=== PATIENT | female | born 1960 | race Caucasian/White ===

== ENCOUNTER → 2018-09-08 | Outpatient (CLI) | payer OTHER, SELFPAY ==
[2018-09-08 10:49] LABS: Absolute Lymphocyte Count 2.41 X10^3/uL (0.83-4.51); Absolute Neutrophil Count 3.7 X10^3/uL (2.0-7.7); Basophil# 0.04 X10^3/uL; Basophil% 0.6 % (0-1); Eosinophil# 0.15 X10^3/uL; Eosinophils% 2.2 % (0-5); Hematocrit 42.5 % (37-47); Hemoglobin 14.4 g/dL (12.0-15.0); Lymphocyte # 2.41 X10^3/ul (4.0); Lymphocyte % 34.9 % (19-41); Mean Corp Hgb Conc 33.9 g/dL (32-36); Mean Corpuscular Hgb 32.4 pg (27.0-32.0); Mean Corpuscular Volume 95.5 fL (81-99); Mean Platelet Vol. 11.1 fl (6.2-12.0); Monocyte# 0.59 X10^3/uL; Monocyte% 8.5 % (0-10); NRBC Flagged by Analyzer 0 % (0-5); Neutrophil # 3.71 X10^3/uL (2.7-7.7); Neutrophil % 53.7 % (47-70); Platelet Count 233 K/mm3 (150-450); RBC Distribution Width CV 12.1 % (11.6-14.6); RBC Distribution Width SD 42.5 fl (35.1-43.9); Red Blood Count 4.45 M/mm3 (4.2-5.4); White Blood Count 6.9 K/mm3 (4.4-11.0)
[2018-09-08 11:22] LABS: ALB/GLOB Ratio 1.5 RATIO (0.9-2.4); AST(SGOT) 12 U/L (15-37); Alanine Aminotransfer ALT/SGPT 19 U/L (13-56); Albumin, Serum 4.1 g/dL (3.2-5.0); Alkaline Phosphatase 64 U/L (45-117); Anion Gap 7 (5-15); BUN 16 mg/dL (7-18); BUN/Creat Ratio 17.3 RATIO (10-20); Calcium,Total 9.5 mg/dL (8.5-10.1); Chloride 104 mmol/L (98-107); Creatinine, Serum 0.92 mg/dL (0.55-1.02); EST Glomerular Filtration Rate 66 mL/min (>60); Est Glom Filt Rate - Afr Amer 80 mL/min (>60); Globulin 2.7 g/dL (2.2-4.2); Glucose 97 mg/dL (74-106); Potassium 4.3 mmol/L (3.5-5.1); Protein, Total 6.8 g/dL (6.4-8.2); Sodium Level 140 mmol/L (136-145)
== END | disposition home or self-care (01) ==
LOC: LAB 10:00
PROVIDERS: Family Provider Physician Assistant; PCP Physician Assistant; Referring Provider Internal Medicine Rheumatology; Visit Provider Internal Medicine Rheumatology
DX: M06.00 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 rheumatoid factor, unspecified site (principal); M79.7 Fibromyalgia; Z79.899 Other long term (current) drug therapy
CPT/HCPCS: 36415; 80053; 85025

== ENCOUNTER → 2018-12-04 09:41 | Outpatient (CLI) | payer OTHER, SELFPAY ==
[2018-12-04 10:12] LABS: Absolute Lymphocyte Count 1.76 X10^3/uL (0.83-4.51); Absolute Neutrophil Count 2.8 X10^3/uL (2.0-7.7); Basophil# 0.05 X10^3/uL; Basophil% 0.9 % (0-1); Eosinophil# 0.17 X10^3/uL; Eosinophils% 3.2 % (0-5); Hematocrit 45.5 % (37-47); Hemoglobin 15.3 g/dL (12.0-15.0); Lymphocyte # 1.76 X10^3/ul (4.0); Lymphocyte % 33.1 % (19-41); Mean Corp Hgb Conc 33.6 g/dL (32-36); Mean Corpuscular Hgb 31.9 pg (27.0-32.0); Mean Platelet Vol. 10.3 fl (6.2-12.0); Monocyte# 0.53 X10^3/uL; NRBC Flagged by Analyzer 0 % (0-5); Neutrophil # 2.79 X10^3/uL (2.7-7.7); Neutrophil % 52.6 % (47-70); Platelet Count 239 K/mm3 (150-450); RBC Distribution Width SD 42.1 fl (35.1-43.9); Red Blood Count 4.79 M/mm3 (4.2-5.4); White Blood Count 5.3 K/mm3 (4.4-11.0)
[2018-12-04 10:55] LABS: ALB/GLOB Ratio 1.6 RATIO (0.9-2.4); AST(SGOT) 13 U/L (15-37); Alanine Aminotransfer ALT/SGPT 14 U/L (13-56); Albumin, Serum 4.2 g/dL (3.2-5.0); Alkaline Phosphatase 72 U/L (45-117); Anion Gap 7 (5-15); BUN 10 mg/dL (7-18); BUN/Creat Ratio 10.3 RATIO (10-20); Calcium,Total 9.1 mg/dL (8.5-10.1); Chloride 106 mmol/L (98-107); Creatinine, Serum 0.97 mg/dL (0.55-1.02); EST Glomerular Filtration Rate 63 mL/min (>60); Est Glom Filt Rate - Afr Amer 76 mL/min (>60); Globulin 2.7 g/dL (2.2-4.2); Glucose 103 mg/dL (74-106); Potassium 4.1 mmol/L (3.5-5.1); Protein, Total 6.9 g/dL (6.4-8.2); Sodium Level 142 mmol/L (136-145)
== END ==
PROVIDERS: Family Provider Physician Assistant; PCP Physician Assistant; Referring Provider Internal Medicine Rheumatology; Visit Provider Internal Medicine Rheumatology
DX: M06.00 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 rheumatoid factor, unspecified site (principal); M79.7 Fibromyalgia; M18.11 Unilateral primary osteoarthritis of first carpometacarpal joint, right hand; Z79.899 Other long term (current) drug therapy
CPT/HCPCS: 36415; 80053; 85025

== ENCOUNTER → 2019-06-26 10:36 | Outpatient (CLI) | payer OTHER, SELFPAY ==
[2019-06-26 10:55] LABS: Absolute Lymphocyte Count 1.45 X10^3/uL (0.83-4.51); Absolute Neutrophil Count 2.7 X10^3/uL (2.0-7.7); Basophil# 0.05 X10^3/uL; Eosinophil# 0.12 X10^3/uL; Eosinophils% 2.5 % (0-5); Hematocrit 42.9 % (37-47); Hemoglobin 14.3 g/dL (12.0-15.0); Lymphocyte # 1.45 X10^3/ul (4.0); Lymphocyte % 30.2 % (19-41); Mean Corp Hgb Conc 33.3 g/dL (32-36); Mean Corpuscular Hgb 32.2 pg (27.0-32.0); Mean Corpuscular Volume 96.6 fL (81-99); Mean Platelet Vol. 10.4 fl (6.2-12.0); Monocyte# 0.45 X10^3/uL; Monocyte% 9.4 % (0-10); NRBC Flagged by Analyzer 0 % (0-5); Neutrophil # 2.72 X10^3/uL (2.7-7.7); Neutrophil % 56.7 % (47-70); Platelet Count 221 K/mm3 (150-450); RBC Distribution Width CV 12.6 % (11.6-14.6); RBC Distribution Width SD 44.7 fl (35.1-43.9); Red Blood Count 4.44 M/mm3 (4.2-5.4); White Blood Count 4.8 K/mm3 (4.4-11.0)
[2019-06-26 11:09] LABS: ALB/GLOB Ratio 1.6 RATIO (0.9-2.4); AST(SGOT) 12 U/L (15-37); Alanine Aminotransfer ALT/SGPT 18 U/L (13-56); Albumin, Serum 4.4 g/dL (3.2-5.0); Alkaline Phosphatase 77 U/L (45-117); Anion Gap 3 (5-15); BUN 10 mg/dL (7-18); BUN/Creat Ratio 10.8 RATIO (10-20); Calcium,Total 9.4 mg/dL (8.5-10.1); Chloride 109 mmol/L (98-107); Creatinine, Serum 0.93 mg/dL (0.55-1.02); EST Glomerular Filtration Rate 66 mL/min (>60); Est Glom Filt Rate - Afr Amer 80 mL/min (>60); Globulin 2.8 g/dL (2.2-4.2); Glucose 105 mg/dL (74-106); Potassium 4.4 mmol/L (3.5-5.1); Protein, Total 7.2 g/dL (6.4-8.2); Sodium Level 140 mmol/L (136-145)
== END ==
PROVIDERS: Referring Provider Internal Medicine Rheumatology; Visit Provider Internal Medicine Rheumatology
DX: M06.00 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 rheumatoid factor, unspecified site (principal); M79.7 Fibromyalgia; M18.11 Unilateral primary osteoarthritis of first carpometacarpal joint, right hand; Z79.899 Other long term (current) drug therapy
CPT/HCPCS: 36415; 80053; 85025

== ENCOUNTER → 2019-09-24 11:44 | Outpatient (CLI) | payer OTHER, SELFPAY ==
[2019-09-24 12:19] LABS: Absolute Lymphocyte Count 1.78 X10^3/uL (0.83-4.51); Absolute Neutrophil Count 3.1 X10^3/uL (2.0-7.7); Basophil# 0.04 X10^3/uL; Basophil% 0.7 % (0-1); Eosinophil# 0.14 X10^3/uL; Eosinophils% 2.6 % (0-5); Hematocrit 41.3 % (37-47); Hemoglobin 14.3 g/dL (12.0-15.0); Lymphocyte # 1.78 X10^3/ul (4.0); Lymphocyte % 32.5 % (19-41); Mean Corp Hgb Conc 34.6 g/dL (32-36); Mean Corpuscular Hgb 33.3 pg (27.0-32.0); Mean Platelet Vol. 10.4 fl (6.2-12.0); Monocyte# 0.39 X10^3/uL; Monocyte% 7.1 % (0-10); NRBC Flagged by Analyzer 0 % (0-5); Neutrophil % 56.7 % (47-70); Platelet Count 248 K/mm3 (150-450); RBC Distribution Width SD 42.1 fl (35.1-43.9); White Blood Count 5.5 K/mm3 (4.4-11.0)
[2019-09-24 12:51] LABS: ALB/GLOB Ratio 1.4 RATIO (0.9-2.4); AST(SGOT) 12 U/L (15-37); Alanine Aminotransfer ALT/SGPT 16 U/L (13-56); Albumin, Serum 3.9 g/dL (3.2-5.0); Alkaline Phosphatase 74 U/L (45-117); Anion Gap 1 (5-15); BUN 12 mg/dL (7-18); BUN/Creat Ratio 12.7 RATIO (10-20); Calcium,Total 8.9 mg/dL (8.5-10.1); Chloride 105 mmol/L (98-107); Creatinine, Serum 0.94 mg/dL (0.55-1.02); EST Glomerular Filtration Rate 65 mL/min (>60); Est Glom Filt Rate - Afr Amer 78 mL/min (>60); Globulin 2.8 g/dL (2.2-4.2); Glucose 120 mg/dL (74-106); Protein, Total 6.7 g/dL (6.4-8.2); Sodium Level 137 mmol/L (136-145)
== END ==
PROVIDERS: Referring Provider Internal Medicine Rheumatology; Visit Provider Internal Medicine Rheumatology
DX: M06.00 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 rheumatoid factor, unspecified site (principal); M79.7 Fibromyalgia; M18.11 Unilateral primary osteoarthritis of first carpometacarpal joint, right hand; Z79.899 Other long term (current) drug therapy
CPT/HCPCS: 36415; 80053; 85025

== ENCOUNTER → 2019-12-21 13:24 | Outpatient (CLI) | payer OTHER, SELFPAY ==
[2019-12-21 13:56] LABS: Absolute Lymphocyte Count 1.85 X10^3/uL (0.83-4.51); Absolute Neutrophil Count 3.4 X10^3/uL (2.0-7.7); Basophil# 0.06 X10^3/uL; Eosinophil# 0.15 X10^3/uL; Eosinophils% 2.5 % (0-5); Hematocrit 42.8 % (37-47); Hemoglobin 14.4 g/dL (12.0-15.0); Lymphocyte # 1.85 X10^3/ul (4.0); Mean Corp Hgb Conc 33.6 g/dL (32-36); Mean Corpuscular Hgb 31.9 pg (27.0-32.0); Mean Corpuscular Volume 94.7 fL (81-99); Mean Platelet Vol. 10.3 fl (6.2-12.0); Monocyte% 8.4 % (0-10); NRBC Flagged by Analyzer 0 % (0-5); Neutrophil # 3.38 X10^3/uL (2.7-7.7); Neutrophil % 56.8 % (47-70); Platelet Count 238 K/mm3 (150-450); RBC Distribution Width CV 12.4 % (11.6-14.6); RBC Distribution Width SD 43.4 fl (35.1-43.9); Red Blood Count 4.52 M/mm3 (4.2-5.4)
[2019-12-21 14:22] LABS: ALB/GLOB Ratio 1.4 RATIO (0.9-2.4); AST(SGOT) 10 U/L (15-37); Alanine Aminotransfer ALT/SGPT 14 U/L (13-56); Albumin, Serum 3.9 g/dL (3.2-5.0); Alkaline Phosphatase 76 U/L (45-117); Anion Gap 7 (5-15); BUN 14 mg/dL (7-18); BUN/Creat Ratio 13.9 RATIO (10-20); Calcium,Total 9.3 mg/dL (8.5-10.1); Chloride 106 mmol/L (98-107); Creatinine, Serum 1.01 mg/dL (0.55-1.02); EST Glomerular Filtration Rate 60 mL/min (>60); Est Glom Filt Rate - Afr Amer 72 mL/min (>60); Globulin 2.8 g/dL (2.2-4.2); Glucose 93 mg/dL (74-106); Potassium 4.1 mmol/L (3.5-5.1); Protein, Total 6.7 g/dL (6.4-8.2); Sodium Level 142 mmol/L (136-145)
== END ==
PROVIDERS: Referring Provider Internal Medicine Rheumatology; Visit Provider Internal Medicine Rheumatology
DX: M06.00 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 rheumatoid factor, unspecified site (principal); M79.7 Fibromyalgia; M18.11 Unilateral primary osteoarthritis of first carpometacarpal joint, right hand; Z79.899 Other long term (current) drug therapy
CPT/HCPCS: 36415; 80053; 85025

== ENCOUNTER → 2020-06-15 11:46 | Outpatient (CLI) | payer OTHER, SELFPAY ==
[2020-06-15 12:41] LABS: Absolute Lymphocyte Count 2.02 X10^3/uL (0.83-4.51); Absolute Neutrophil Count 3.4 X10^3/uL (2.0-7.7); Basophil# 0.03 X10^3/uL; Basophil% 0.5 % (0-1); Eosinophil# 0.19 X10^3/uL; Eosinophils% 3.1 % (0-5); Hematocrit 43.8 % (37-47); Hemoglobin 14.1 g/dL (12.0-15.0); Lymphocyte # 2.02 X10^3/ul (0.83-4.51); Lymphocyte % 32.5 % (19-41); Mean Corp Hgb Conc 32.2 g/dL (32-36); Mean Corpuscular Hgb 31.5 pg (27.0-32.0); Mean Corpuscular Volume 97.8 fL (81-99); Mean Platelet Vol. 10.7 fl (6.2-12.0); Monocyte# 0.56 X10^3/uL; NRBC Flagged by Analyzer 0 % (0-5); Neutrophil % 54.7 % (47-70); Platelet Count 250 K/mm3 (150-450); RBC Distribution Width CV 12.1 % (11.6-14.6); RBC Distribution Width SD 43.8 fl (35.1-43.9); Red Blood Count 4.48 M/mm3 (4.2-5.4); White Blood Count 6.2 K/mm3 (4.4-11.0)
[2020-06-15 13:17] LABS: ALB/GLOB Ratio 1.7 RATIO (0.9-2.4); AST(SGOT) 12 U/L (15-37); Alanine Aminotransfer ALT/SGPT 17 U/L (13-56); Albumin, Serum 4.3 g/dL (3.2-5.0); Alkaline Phosphatase 73 U/L (45-117); Anion Gap 4 (5-15); BUN 14 mg/dL (7-18); BUN/Creat Ratio 16.3 RATIO (10-20); Calcium,Total 9.3 mg/dL (8.5-10.1); Chloride 107 mmol/L (98-107); Creatinine, Serum 0.86 mg/dL (0.55-1.02); EST Glomerular Filtration Rate 72 mL/min (>60); Est Glom Filt Rate - Afr Amer 87 mL/min (>60); Globulin 2.6 g/dL (2.2-4.2); Glucose 102 mg/dL (74-106); Potassium 4.1 mmol/L (3.5-5.1); Protein, Total 6.9 g/dL (6.4-8.2); Sodium Level 140 mmol/L (136-145)
== END ==
PROVIDERS: Referring Provider Internal Medicine Rheumatology; Visit Provider Internal Medicine Rheumatology
DX: M06.00 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 rheumatoid factor, unspecified site (principal); M79.7 Fibromyalgia; M18.11 Unilateral primary osteoarthritis of first carpometacarpal joint, right hand; M47.897 Other spondylosis, lumbosacral region; Z79.899 Other long term (current) drug therapy
CPT/HCPCS: 36415; 80053; 85025

== ENCOUNTER → 2020-09-06 12:41 | Outpatient (CLI) | payer OTHER, SELFPAY ==
[2020-09-06 13:24] LABS: Absolute Lymphocyte Count 1.97 X10^3/uL (0.83-4.51); Absolute Neutrophil Count 2.3 X10^3/uL (2.0-7.7); Basophil# 0.05 X10^3/uL; Eosinophil# 0.13 X10^3/uL; Eosinophils% 2.7 % (0-5); Hematocrit 41.2 % (37-47); Hemoglobin 13.8 g/dL (12.0-15.0); Lymphocyte # 1.97 X10^3/ul (0.83-4.51); Lymphocyte % 40.6 % (19-41); Mean Corp Hgb Conc 33.5 g/dL (32-36); Mean Corpuscular Volume 95.6 fL (81-99); Mean Platelet Vol. 10.8 fl (6.2-12.0); Monocyte# 0.39 X10^3/uL; NRBC Flagged by Analyzer 0 % (0-5); Neutrophil # 2.31 X10^3/uL (2.7-7.7); Neutrophil % 47.7 % (47-70); Platelet Count 235 K/mm3 (150-450); RBC Distribution Width CV 12.4 % (11.6-14.6); RBC Distribution Width SD 43.6 fl (35.1-43.9); Red Blood Count 4.31 M/mm3 (4.2-5.4); White Blood Count 4.9 K/mm3 (4.4-11.0)
[2020-09-06 13:55] LABS: ALB/GLOB Ratio 1.5 RATIO (0.9-2.4); AST(SGOT) 13 U/L (15-37); Alanine Aminotransfer ALT/SGPT 14 U/L (13-56); Alkaline Phosphatase 70 U/L (45-117); Anion Gap 0 (5-15); BUN 15 mg/dL (7-18); BUN/Creat Ratio 16.5 RATIO (10-20); Calcium,Total 8.8 mg/dL (8.5-10.1); Chloride 108 mmol/L (98-107); Creatinine, Serum 0.91 mg/dL (0.55-1.02); EST Glomerular Filtration Rate 67 mL/min (>60); Est Glom Filt Rate - Afr Amer 81 mL/min (>60); Globulin 2.6 g/dL (2.2-4.2); Glucose 91 mg/dL (74-106); Potassium 4.3 mmol/L (3.5-5.1); Protein, Total 6.6 g/dL (6.4-8.2); Sodium Level 138 mmol/L (136-145)
== END ==
PROVIDERS: Referring Provider Internal Medicine Rheumatology; Visit Provider Internal Medicine Rheumatology
DX: M06.00 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 rheumatoid factor, unspecified site (principal); M79.7 Fibromyalgia; M18.11 Unilateral primary osteoarthritis of first carpometacarpal joint, right hand; M47.897 Other spondylosis, lumbosacral region; Z79.899 Other long term (current) drug therapy
CPT/HCPCS: 36415; 80053; 85025

== ENCOUNTER → 2020-12-04 12:55 | Outpatient (CLI) | payer OTHER, SELFPAY ==
[2020-12-04 13:50] LABS: Absolute Neutrophil Count 2.9 X10^3/uL (2.0-7.7); Basophil# 0.05 X10^3/uL; Basophil% 0.9 % (0-1); Eosinophil# 0.15 X10^3/uL; Eosinophils% 2.7 % (0-5); Hematocrit 39.9 % (37-47); Hemoglobin 13.6 g/dL (12.0-15.0); Lymphocyte % 37.3 % (19-41); Mean Corp Hgb Conc 34.1 g/dL (32-36); Mean Corpuscular Hgb 32.8 pg (27.0-32.0); Mean Corpuscular Volume 96.1 fL (81-99); Mean Platelet Vol. 10.1 fl (6.2-12.0); Monocyte# 0.46 X10^3/uL; Monocyte% 8.2 % (0-10); NRBC Flagged by Analyzer 0 % (0-5); Neutrophil # 2.85 X10^3/uL (2.7-7.7); Neutrophil % 50.5 % (47-70); Platelet Count 266 K/mm3 (150-450); RBC Distribution Width CV 12.9 % (11.6-14.6); RBC Distribution Width SD 45.9 fl (35.1-43.9); Red Blood Count 4.15 M/mm3 (4.2-5.4); White Blood Count 5.6 K/mm3 (4.4-11.0)
[2020-12-04 14:19] LABS: ALB/GLOB Ratio 1.3 RATIO (0.9-2.4); AST(SGOT) 11 U/L (15-37); Alanine Aminotransfer ALT/SGPT 18 U/L (13-56); Albumin, Serum 3.9 g/dL (3.2-5.0); Alkaline Phosphatase 72 U/L (45-117); Anion Gap 7 (5-15); BUN 11 mg/dL (7-18); BUN/Creat Ratio 13.3 RATIO (10-20); Calcium,Total 8.7 mg/dL (8.5-10.1); Chloride 104 mmol/L (98-107); Creatinine, Serum 0.83 mg/dL (0.55-1.02); EST Glomerular Filtration Rate 75 mL/min (>60); Est Glom Filt Rate - Afr Amer 91 mL/min (>60); Globulin 2.9 g/dL (2.2-4.2); Glucose 82 mg/dL (74-106); Potassium 3.8 mmol/L (3.5-5.1); Protein, Total 6.8 g/dL (6.4-8.2); Sodium Level 139 mmol/L (136-145)
== END ==
PROVIDERS: Referring Provider Internal Medicine Rheumatology; Visit Provider Internal Medicine Rheumatology
DX: M06.00 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 rheumatoid factor, unspecified site (principal); M79.7 Fibromyalgia; M18.11 Unilateral primary osteoarthritis of first carpometacarpal joint, right hand; M47.897 Other spondylosis, lumbosacral region; Z79.899 Other long term (current) drug therapy
CPT/HCPCS: 36415; 80053; 85025

== ENCOUNTER → 2021-06-14 | Outpatient (CLI) | payer OTHER, SELFPAY ==
[2021-06-14 11:35] LABS: Absolute Lymphocyte Count 1.89 X10^3/uL (0.83-4.51); Absolute Neutrophil Count 2.2 X10^3/uL (2.0-7.7); Basophil# 0.04 X10^3/uL; Basophil% 0.8 % (0-1); Eosinophil# 0.14 X10^3/uL; Eosinophils% 2.9 % (0-5); Hematocrit 43.7 % (37-47); Hemoglobin 14.9 g/dL (12.0-15.0); Lymphocyte # 1.89 X10^3/ul (0.83-4.51); Lymphocyte % 39.1 % (19-41); Mean Corp Hgb Conc 34.1 g/dL (32-36); Mean Corpuscular Hgb 33.3 pg (27.0-32.0); Mean Corpuscular Volume 97.5 fL (81-99); Mean Platelet Vol. 10.6 fl (6.2-12.0); Monocyte# 0.52 X10^3/uL; Monocyte% 10.8 % (0-10); NRBC Flagged by Analyzer 0 % (0-5); Neutrophil # 2.23 X10^3/uL (2.7-7.7); Neutrophil % 46.2 % (47-70); Platelet Count 263 K/mm3 (150-450); RBC Distribution Width SD 46.6 fl (35.1-43.9); Red Blood Count 4.48 M/mm3 (4.2-5.4); White Blood Count 4.8 K/mm3 (4.4-11.0)
[2021-06-14 12:14] LABS: ALB/GLOB Ratio 1.6 RATIO (0.9-2.4); AST(SGOT) 11 U/L (15-37); Alanine Aminotransfer ALT/SGPT 19 U/L (13-56); Albumin, Serum 4.2 g/dL (3.2-5.0); Alkaline Phosphatase 63 U/L (45-117); Anion Gap 5 (5-15); BUN 17 mg/dL (7-18); BUN/Creat Ratio 18.1 RATIO (10-20); Chloride 105 mmol/L (98-107); Creatinine, Serum 0.94 mg/dL (0.55-1.02); EST Glomerular Filtration Rate 65 mL/min (>60); Est Glom Filt Rate - Afr Amer 78 mL/min (>60); Globulin 2.6 g/dL (2.2-4.2); Glucose 102 mg/dL (74-106); Potassium 4.4 mmol/L (3.5-5.1); Protein, Total 6.8 g/dL (6.4-8.2); Sodium Level 140 mmol/L (136-145)
== END | disposition home or self-care (01) ==
LOC: LAB 10:47
PROVIDERS: Referring Provider Internal Medicine Rheumatology; Visit Provider Internal Medicine Rheumatology
DX: M06.00 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 rheumatoid factor, unspecified site (principal); M79.7 Fibromyalgia; M18.11 Unilateral primary osteoarthritis of first carpometacarpal joint, right hand; M47.897 Other spondylosis, lumbosacral region; Z79.899 Other long term (current) drug therapy
CPT/HCPCS: 36415; 80053; 85025

== ENCOUNTER → 2021-09-04 | Outpatient (CLI) | payer OTHER, SELFPAY ==
[2021-09-04 08:02] LABS: Absolute Lymphocyte Count 2.16 X10^3/uL (0.83-4.51); Absolute Neutrophil Count 3.1 X10^3/uL (2.0-7.7); Basophil# 0.04 X10^3/uL; Basophil% 0.7 % (0-1); Eosinophil# 0.24 X10^3/uL; Hematocrit 42.7 % (37-47); Hemoglobin 14.5 g/dL (12.0-15.0); Lymphocyte # 2.16 X10^3/ul (0.83-4.51); Lymphocyte % 35.9 % (19-41); Mean Platelet Vol. 9.9 fl (6.2-12.0); Monocyte# 0.45 X10^3/uL; Monocyte% 7.5 % (0-10); NRBC Flagged by Analyzer 0 % (0-5); Neutrophil # 3.12 X10^3/uL (2.7-7.7); Neutrophil % 51.7 % (47-70); Platelet Count 256 K/mm3 (150-450); RBC Distribution Width CV 12.1 % (11.6-14.6); RBC Distribution Width SD 43.3 fl (35.1-43.9)
[2021-09-04 08:27] LABS: ALB/GLOB Ratio 1.5 RATIO (0.9-2.4); AST(SGOT) 9 U/L (15-37); Alanine Aminotransfer ALT/SGPT 17 U/L (13-56); Albumin, Serum 3.8 g/dL (3.2-5.0); Alkaline Phosphatase 81 U/L (45-117); Anion Gap 5 (5-15); BUN 14 mg/dL (7-18); BUN/Creat Ratio 16.5 RATIO (10-20); Calcium,Total 8.8 mg/dL (8.5-10.1); Chloride 108 mmol/L (98-107); Creatinine, Serum 0.85 mg/dL (0.55-1.02); EST Glomerular Filtration Rate 73 mL/min (>60); Est Glom Filt Rate - Afr Amer 88 mL/min (>60); Globulin 2.6 g/dL (2.2-4.2); Glucose 119 mg/dL (74-106); Potassium 4.2 mmol/L (3.5-5.1); Protein, Total 6.4 g/dL (6.4-8.2); Sodium Level 142 mmol/L (136-145)
== END | disposition home or self-care (01) ==
LOC: LAB 07:49
PROVIDERS: Visit Provider Internal Medicine Rheumatology
DX: M06.00 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 rheumatoid factor, unspecified site (principal); M79.7 Fibromyalgia; M18.11 Unilateral primary osteoarthritis of first carpometacarpal joint, right hand; M47.897 Other spondylosis, lumbosacral region; Z79.899 Other long term (current) drug therapy
CPT/HCPCS: 36415; 80053; 85025

== ENCOUNTER → 2021-12-05 | Outpatient (CLI) | payer OTHER, SELFPAY ==
[2021-12-05 13:14] LABS: Absolute Lymphocyte Count 1.81 X10^3/uL (0.83-4.51); Absolute Neutrophil Count 3.7 X10^3/uL (2.0-7.7); Basophil# 0.05 X10^3/uL; Basophil% 0.8 % (0-1); Eosinophil# 0.16 X10^3/uL; Eosinophils% 2.6 % (0-5); Hematocrit 42.2 % (37-47); Hemoglobin 14.3 g/dL (12.0-15.0); Lymphocyte # 1.81 X10^3/ul (0.83-4.51); Lymphocyte % 28.9 % (19-41); Mean Corp Hgb Conc 33.9 g/dL (32-36); Mean Corpuscular Hgb 32.9 pg (27.0-32.0); Mean Corpuscular Volume 97.2 fL (81-99); Mean Platelet Vol. 10.3 fl (6.2-12.0); Monocyte# 0.54 X10^3/uL; Monocyte% 8.6 % (0-10); NRBC Flagged by Analyzer 0 % (0-5); Neutrophil # 3.69 X10^3/uL (2.7-7.7); Neutrophil % 58.8 % (47-70); Platelet Count 261 K/mm3 (150-450); RBC Distribution Width CV 12.6 % (11.6-14.6); RBC Distribution Width SD 45.3 fl (35.1-43.9); Red Blood Count 4.34 M/mm3 (4.2-5.4); White Blood Count 6.3 K/mm3 (4.4-11.0)
[2021-12-05 13:40] LABS: BUN 11 mg/dL (7-18); Creatinine, Serum 0.86 mg/dL (0.55-1.02); EST Glomerular Filtration Rate 71 mL/min (>60); Glucose 97 mg/dL (74-106)
[2021-12-05 13:41] LABS: ALB/GLOB Ratio 1.3 RATIO (0.9-2.4); AST(SGOT) 12 U/L (15-37); Alanine Aminotransfer ALT/SGPT 19 U/L (13-56); Alkaline Phosphatase 60 U/L (45-117); Anion Gap 3 (5-15); BUN/Creat Ratio 12.7 RATIO (10-20); Calcium,Total 9.4 mg/dL (8.5-10.1); Chloride 108 mmol/L (98-107); Est Glom Filt Rate - Afr Amer 86 mL/min (>60); Potassium 4.7 mmol/L (3.5-5.1); Sodium Level 140 mmol/L (136-145)
== END | disposition home or self-care (01) ==
LOC: LAB 11:08
PROVIDERS: Visit Provider Internal Medicine Rheumatology
DX: M06.00 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 rheumatoid factor, unspecified site (principal); M79.7 Fibromyalgia; M18.11 Unilateral primary osteoarthritis of first carpometacarpal joint, right hand; M47.897 Other spondylosis, lumbosacral region; Z79.899 Other long term (current) drug therapy
CPT/HCPCS: 36415; 80053; 85025

== ENCOUNTER → 2022-06-14 | Outpatient (CLI) | payer OTHER, SELFPAY ==
[2022-06-14 10:31] LABS: Absolute Lymphocyte Count 2.21 X10^3/uL (0.83-4.51); Absolute Neutrophil Count 2.1 X10^3/uL (2.0-7.7); Basophil# 0.04 X10^3/uL; Basophil% 0.8 % (0-1); Eosinophil# 0.16 X10^3/uL; Eosinophils% 3.3 % (0-5); Hematocrit 41.7 % (37-47); Hemoglobin 14.1 g/dL (12.0-15.0); Lymphocyte # 2.21 X10^3/ul (0.83-4.51); Lymphocyte % 45.1 % (19-41); Mean Corp Hgb Conc 33.8 g/dL (32-36); Mean Corpuscular Hgb 32.7 pg (27.0-32.0); Mean Corpuscular Volume 96.8 fL (81-99); Mean Platelet Vol. 10.3 fl (6.2-12.0); Monocyte# 0.39 X10^3/uL; NRBC Flagged by Analyzer 0 % (0-5); Neutrophil # 2.09 X10^3/uL (2.7-7.7); Neutrophil % 42.6 % (47-70); Platelet Count 263 K/mm3 (150-450); RBC Distribution Width CV 12.4 % (11.6-14.6); RBC Distribution Width SD 44.4 fl (35.1-43.9); Red Blood Count 4.31 M/mm3 (4.2-5.4); White Blood Count 4.9 K/mm3 (4.4-11.0)
[2022-06-14 10:56] LABS: ALB/GLOB Ratio 1.4 RATIO (0.9-2.4); AST(SGOT) 12 U/L (15-37); Alanine Aminotransfer ALT/SGPT 17 U/L (13-56); Albumin, Serum 3.8 g/dL (3.2-5.0); Alkaline Phosphatase 64 U/L (45-117); Anion Gap 2 (5-15); BUN 16 mg/dL (7-18); Calcium,Total 8.9 mg/dL (8.5-10.1); Chloride 112 mmol/L (98-107); Creatinine, Serum 0.89 mg/dL (0.55-1.02); EST Glomerular Filtration Rate 69 mL/min (>60); Est Glom Filt Rate - Afr Amer 83 mL/min (>60); Globulin 2.8 g/dL (2.2-4.2); Glucose 103 mg/dL (74-106); Potassium 3.9 mmol/L (3.5-5.1); Protein, Total 6.6 g/dL (6.4-8.2); Sodium Level 140 mmol/L (136-145)
== END | disposition home or self-care (01) ==
LOC: LAB 10:13
PROVIDERS: Referring Provider Internal Medicine Rheumatology; Visit Provider Internal Medicine Rheumatology
DX: M06.00 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 rheumatoid factor, unspecified site (principal); M79.7 Fibromyalgia; M18.11 Unilateral primary osteoarthritis of first carpometacarpal joint, right hand; M47.897 Other spondylosis, lumbosacral region; Z79.899 Other long term (current) drug therapy
CPT/HCPCS: 36415; 80053; 85025

== ENCOUNTER → 2022-09-09 | Outpatient (CLI) | payer OTHER, SELFPAY ==
[2022-09-09 11:04] LABS: Absolute Neutrophil Count 2.8 X10^3/uL (2.0-7.7); Basophil# 0.03 X10^3/uL; Basophil% 0.5 % (0-1); Eosinophil# 0.18 X10^3/uL; Eosinophils% 3.3 % (0-5); Hematocrit 44.9 % (37-47); Lymphocyte % 36.2 % (19-41); Mean Corp Hgb Conc 33.4 g/dL (32-36); Mean Corpuscular Hgb 32.3 pg (27.0-32.0); Mean Corpuscular Volume 96.6 fL (81-99); Mean Platelet Vol. 10.2 fl (6.2-12.0); Monocyte# 0.53 X10^3/uL; Monocyte% 9.6 % (0-10); NRBC Flagged by Analyzer 0 % (0-5); Neutrophil # 2.78 X10^3/uL (2.7-7.7); Neutrophil % 50.2 % (47-70); Platelet Count 252 K/mm3 (150-450); RBC Distribution Width CV 12.1 % (11.6-14.6); RBC Distribution Width SD 43.1 fl (35.1-43.9); Red Blood Count 4.65 M/mm3 (4.2-5.4); White Blood Count 5.5 K/mm3 (4.4-11.0)
[2022-09-09 11:42] LABS: ALB/GLOB Ratio 1.3 RATIO (0.9-2.4); AST(SGOT) 12 U/L (15-37); Alanine Aminotransfer ALT/SGPT 15 U/L (13-56); Albumin, Serum 3.7 g/dL (3.2-5.0); Alkaline Phosphatase 66 U/L (45-117); Anion Gap 1 (5-15); BUN 14 mg/dL (7-18); Calcium,Total 8.9 mg/dL (8.5-10.1); Chloride 110 mmol/L (98-107); Creatinine, Serum 0.93 mg/dL (0.55-1.02); EST Glomerular Filtration Rate 65 mL/min (>60); Est Glom Filt Rate - Afr Amer 78 mL/min (>60); Globulin 2.8 g/dL (2.2-4.2); Glucose 91 mg/dL (74-106); Potassium 4.7 mmol/L (3.5-5.1); Protein, Total 6.5 g/dL (6.4-8.2); Sodium Level 140 mmol/L (136-145)
== END | disposition home or self-care (01) ==
LOC: LAB 10:10
PROVIDERS: PCP Family Medicine; Referring Provider Internal Medicine Rheumatology; Visit Provider Internal Medicine Rheumatology
DX: M06.00 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 rheumatoid factor, unspecified site (principal); M79.7 Fibromyalgia; Z79.899 Other long term (current) drug therapy
CPT/HCPCS: 36415; 80053; 85025

== ENCOUNTER → 2022-10-30 | Outpatient (CLI) | payer OTHER, SELFPAY ==
--- NOTE | 2022-10-30 11:20 | BI_ITS ---
MAMMOGRAPHY - BILATERAL SCREENING REASON FOR EXAM: Female, 62 years old. Routine annual screening examination. PERTINENT HISTORY: Grandmother with breast cancer. Prior bilateral excisional breast biopsies. TECHNIQUE: Digital bilateral breast souleymane (3D mammographic acquisition) in the CC and MLO projections. 2-D mediolateral oblique (MLO) and craniocaudad (CC) views of both breasts were obtained. CAD: Full Field Digital Mammography with Computer Added Detection was performed. COMPARISON: Comparison is made with prior abdomen examination dated October 10, 2017. FINDINGS: Breast Composition: The breasts are heterogeneously dense, which may obscure small masses. There is a 5.3 mm x 5.3 mm bilobed nodular density in the upper lateral aspect of the right breast. This may represent an intramammary lymph node. Correlation with ultrasound is recommended. No other significant abnormalities are identified. BI/SCRN MAMM (CAD)W/SOULEYMANE BILAT IMPRESSION: 5.3 mm x 5.3 mm bilobed nodular density in the upper lateral aspect of the right breast as described. Correlation with ultrasound is recommended. ASSESSMENT CATEGORY: BIRADS Category 0: Incomplete. Need additional imaging evaluation. A letter regarding these results will be sent to the patient by the facility within 30 days. Approximately 10% of breast cancers are not detected by mammography. A normal mammogram should not delay biopsy of a clinically suspicious abnormality. [id number] Electronically Signed: Aaron Tijerina MD at 12:33 EDT ,
== END | disposition home or self-care (01) ==
LOC: OPBI 11:16
PROVIDERS: PCP Family Medicine; Referring Provider Family Medicine; Visit Provider Family Medicine
DX: Z12.31 Encounter for screening mammogram for malignant neoplasm of breast (principal)
CPT/HCPCS: 77063; 77067

== ENCOUNTER → 2022-11-01 | Outpatient (CLI) | payer OTHER, SELFPAY ==
--- NOTE | 2022-11-01 10:41 | US_ITS ---
STUDY: ULTRASOUND BREAST - RIGHT REASON FOR EXAM: Female, 62 years old. Abnormal screening mammogram. TECHNIQUE: Axial and longitudinal images of the RIGHT breast were performed with a high resolution ultrasound transducer. # OF IMAGES: 7 COMPARISON: Comparison is made with prior mammogram dated October 30, 2022. FINDINGS: RIGHT Breast: The upper outer quadrant of the breast was examined with ultrasound. The mammographic abnormality corresponds to a 9 mm x 6 mm x 4 mm benign-appearing lymph node. US/Breast Limited Unilateral IMPRESSION: The mammographic abnormality corresponds to a 9 mm x 6 mm x 4 mm benign-appearing lymph node. ASSESSMENT CATEGORY: BIRADS Category 2: Benign. A letter regarding these results will be sent to the patient by the facility within 30 days. Electronically Signed: Aaron Tijerina MD at 14:37 EDT ,
== END | disposition home or self-care (01) ==
PROVIDERS: PCP Family Medicine; Referring Provider Family Medicine; Visit Provider Family Medicine
DX: N63.10 Unspecified lump in the right breast, unspecified quadrant (principal)
CPT/HCPCS: 76642

== ENCOUNTER → 2022-12-10 | Outpatient (CLI) | payer OTHER, SELFPAY ==
[2022-12-10 09:51] LABS: Absolute Lymphocyte Count 2.21 X10^3/uL (0.83-4.51); Absolute Neutrophil Count 1.9 X10^3/uL (2.0-7.7); Basophil# 0.05 X10^3/uL; Eosinophil# 0.18 X10^3/uL; Eosinophils% 3.6 % (0-5); Hematocrit 42.8 % (37-47); Hemoglobin 14.3 g/dL (12.0-15.0); Lymphocyte # 2.21 X10^3/ul (0.83-4.51); Lymphocyte % 44.1 % (19-41); Mean Corp Hgb Conc 33.4 g/dL (32-36); Mean Corpuscular Hgb 32.1 pg (27.0-32.0); Mean Corpuscular Volume 96.2 fL (81-99); Mean Platelet Vol. 9.6 fl (6.2-12.0); Monocyte# 0.61 X10^3/uL; Monocyte% 12.2 % (0-10); NRBC Flagged by Analyzer 0 % (0-5); Neutrophil # 1.94 X10^3/uL (2.7-7.7); Neutrophil % 38.7 % (47-70); Platelet Count 302 K/mm3 (150-450); RBC Distribution Width CV 13.3 % (11.6-14.6); RBC Distribution Width SD 47.6 fl (35.1-43.9); Red Blood Count 4.45 M/mm3 (4.2-5.4)
[2022-12-10 11:43] LABS: ALB/GLOB Ratio 1.2 RATIO (0.9-2.4); AST(SGOT) 10 U/L (15-37); Alanine Aminotransfer ALT/SGPT 17 U/L (13-56); Albumin, Serum 3.7 g/dL (3.2-5.0); Alkaline Phosphatase 90 U/L (45-117); Anion Gap 4 (5-15); BUN 15 mg/dL (7-18); BUN/Creat Ratio 16.6 RATIO (10-20); Calcium,Total 8.8 mg/dL (8.5-10.1); Chloride 111 mmol/L (98-107); EST Glomerular Filtration Rate 67 mL/min (>60); Est Glom Filt Rate - Afr Amer 81 mL/min (>60); Glucose 99 mg/dL (74-106); Potassium 4.2 mmol/L (3.5-5.1); Protein, Total 6.7 g/dL (6.4-8.2); Sodium Level 142 mmol/L (136-145)
== END | disposition home or self-care (01) ==
LOC: LAB 08:21
PROVIDERS: PCP Family Medicine; Referring Provider Internal Medicine Rheumatology; Visit Provider Internal Medicine Rheumatology
DX: M06.00 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 rheumatoid factor, unspecified site (principal); Z79.899 Other long term (current) drug therapy
CPT/HCPCS: 36415; 80053; 85025

== ENCOUNTER → 2023-06-10 | Outpatient (CLI) | payer OTHER, SELFPAY ==
[2023-06-10 11:59] LABS: Absolute Lymphocyte Count 2.35 X10^3/uL (0.83-4.51); Absolute Neutrophil Count 3.1 X10^3/uL (2.0-7.7); Basophil# 0.04 X10^3/uL; Basophil% 0.6 % (0-1); Eosinophil# 0.15 X10^3/uL; Eosinophils% 2.4 % (0-5); Hematocrit 42.6 % (37-47); Hemoglobin 14.2 g/dL (12.0-15.0); Lymphocyte # 2.35 X10^3/ul (0.83-4.51); Lymphocyte % 37.4 % (19-41); Mean Corp Hgb Conc 33.3 g/dL (32-36); Mean Corpuscular Hgb 32.3 pg (27.0-32.0); Mean Corpuscular Volume 96.8 fL (81-99); Monocyte# 0.63 X10^3/uL; NRBC Flagged by Analyzer 0 % (0-5); Neutrophil % 49.3 % (47-70); Platelet Count 264 K/mm3 (150-450); RBC Distribution Width CV 12.6 % (11.6-14.6); RBC Distribution Width SD 44.7 fl (35.1-43.9); White Blood Count 6.3 K/mm3 (4.4-11.0)
[2023-06-10 13:06] LABS: ALB/GLOB Ratio 1.5 RATIO (0.9-2.4); AST(SGOT) 20 U/L (15-37); Alanine Aminotransfer ALT/SGPT 27 U/L (13-56); Albumin, Serum 4.1 g/dL (3.2-5.0); Alkaline Phosphatase 74 U/L (45-117); Anion Gap 2 (5-15); BUN 15 mg/dL (7-18); BUN/Creat Ratio 17.8 RATIO (10-20); Calcium,Total 9.1 mg/dL (8.5-10.1); Chloride 108 mmol/L (98-107); Creatinine, Serum 0.84 mg/dL (0.55-1.02); EST Glomerular Filtration Rate 73 mL/min (>60); Est Glom Filt Rate - Afr Amer 88 mL/min (>60); Globulin 2.8 g/dL (2.2-4.2); Glucose 105 mg/dL (74-106); Potassium 4.3 mmol/L (3.5-5.1); Protein, Total 6.9 g/dL (6.4-8.2); Sodium Level 139 mmol/L (136-145)
== END | disposition home or self-care (01) ==
LOC: LAB 11:23
PROVIDERS: PCP Family Medicine; Referring Provider Internal Medicine Rheumatology; Visit Provider Internal Medicine Rheumatology
DX: M06.00 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 rheumatoid factor, unspecified site (principal); M79.7 Fibromyalgia; M18.11 Unilateral primary osteoarthritis of first carpometacarpal joint, right hand; M47.897 Other spondylosis, lumbosacral region; Z79.899 Other long term (current) drug therapy
CPT/HCPCS: 36415; 80053; 85025

== ENCOUNTER 2023-09-10 12:24 | Outpatient (RCR) | payer OTHER, SELFPAY ==
[2023-09-10 13:24] LABS: Absolute Lymphocyte Count 2.81 X10^3/uL (0.83-4.51); Absolute Neutrophil Count 3.1 X10^3/uL (2.0-7.7); Basophil# 0.06 X10^3/uL; Basophil% 0.9 % (0-1); Eosinophil# 0.15 X10^3/uL; Eosinophils% 2.2 % (0-5); Hematocrit 42.6 % (37-47); Hemoglobin 14.3 g/dL (12.0-15.0); Lymphocyte # 2.81 X10^3/ul (0.83-4.51); Lymphocyte % 41.6 % (19-41); Mean Corp Hgb Conc 33.6 g/dL (32-36); Mean Corpuscular Hgb 31.6 pg (27.0-32.0); Mean Corpuscular Volume 94.2 fL (81-99); Mean Platelet Vol. 10.3 fl (6.2-12.0); Monocyte# 0.65 X10^3/uL; Monocyte% 9.6 % (0-10); NRBC Flagged by Analyzer 0 % (0-5); Neutrophil # 3.07 X10^3/uL (2.7-7.7); Neutrophil % 45.4 % (47-70); Platelet Count 280 K/mm3 (150-450); RBC Distribution Width CV 12.4 % (11.6-14.6); RBC Distribution Width SD 43.2 fl (35.1-43.9); Red Blood Count 4.52 M/mm3 (4.2-5.4); White Blood Count 6.8 K/mm3 (4.4-11.0)
[2023-09-10 14:01] LABS: ALB/GLOB Ratio 1.6 RATIO (0.9-2.4); AST(SGOT) 10 U/L (15-37); Alanine Aminotransfer ALT/SGPT 20 U/L (13-56); Albumin, Serum 4.1 g/dL (3.2-5.0); Alkaline Phosphatase 78 U/L (45-117); Anion Gap 6 (5-15); BUN 16 mg/dL (7-18); BUN/Creat Ratio 17.7 RATIO (10-20); Calcium,Total 9.1 mg/dL (8.5-10.1); Chloride 106 mmol/L (98-107); EST Glomerular Filtration Rate 67 mL/min (>60); Est Glom Filt Rate - Afr Amer 81 mL/min (>60); Globulin 2.6 g/dL (2.2-4.2); Glucose 95 mg/dL (74-106); Potassium 4.3 mmol/L (3.5-5.1); Protein, Total 6.7 g/dL (6.4-8.2); Sodium Level 139 mmol/L (136-145)
== END 2023-09-24 18:00 | disposition home or self-care (01) ==
LOC: LAB 12:24
PROVIDERS: Referring Provider Internal Medicine Rheumatology; Visit Provider Internal Medicine Rheumatology
DX: M06.041 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 rheumatoid factor, right hand (principal); Z79.899 Other long term (current) drug therapy; M79.7 Fibromyalgia; M18.11 Unilateral primary osteoarthritis of first carpometacarpal joint, right hand; M47.897 Other spondylosis, lumbosacral region
CPT/HCPCS: 36415; 80053; 85025

== ENCOUNTER → 2023-10-24 | Outpatient (CLI) | payer OTHER, SELFPAY ==
[2023-10-24 15:43] LABS: Vitamin D,25 Hydroxy 46.8 ng/mL
[2023-10-24 16:07] LABS: Follicle Stimulating Hormone 83.5 mIU/mL; Luteinizing Hormone 49.6 mIU/mL
[2023-10-27 01:06] LABS: PROGESTERONE <0.1 ng/mL (.)
[2023-10-30 21:07] LABS: Estrogen, Total, Serum 64 pg/mL (40-244)
== END | disposition home or self-care (01) ==
LOC: MFPLAB 10:55
PROVIDERS: PCP Family Medicine; Visit Provider Family Medicine
DX: R53.83 Other fatigue (principal); M06.9 Rheumatoid arthritis, unspecified; Z78.0 Asymptomatic menopausal state
CPT/HCPCS: 36415; 82306; 82672; 83001; 83002; 84144; 84443

== ENCOUNTER 2023-12-08 09:31 | Outpatient (RCR) | payer OTHER, SELFPAY ==
[2023-12-08 10:42] LABS: Basophil# 0.04 X10^3/uL; Eosinophil# 0.13 X10^3/uL; Eosinophils% 3.2 % (0-5); Hematocrit 41.8 % (37-47); Hemoglobin 13.9 g/dL (12.0-15.0); Lymphocyte % 34.6 % (19-41); Mean Corp Hgb Conc 33.3 g/dL (32-36); Mean Corpuscular Hgb 31.7 pg (27.0-32.0); Mean Corpuscular Volume 95.4 fL (81-99); Mean Platelet Vol. 10.4 fl (6.2-12.0); Monocyte# 0.48 X10^3/uL; Monocyte% 11.9 % (0-10); NRBC Flagged by Analyzer 0 % (0-5); Neutrophil # 1.99 X10^3/uL (2.7-7.7); Neutrophil % 49.1 % (47-70); Platelet Count 237 K/mm3 (150-450); RBC Distribution Width CV 12.7 % (11.6-14.6); RBC Distribution Width SD 45.1 fl (35.1-43.9); Red Blood Count 4.38 M/mm3 (4.2-5.4); White Blood Count 4.1 K/mm3 (4.4-11.0)
[2023-12-08 11:45] LABS: ALB/GLOB Ratio 1.5 RATIO (0.9-2.4); AST(SGOT) 9 U/L (15-37); Alanine Aminotransfer ALT/SGPT 18 U/L (13-56); Albumin, Serum 3.8 g/dL (3.2-5.0); Alkaline Phosphatase 63 U/L (45-117); Anion Gap 3 (5-15); BUN 12 mg/dL (7-18); BUN/Creat Ratio 13.2 RATIO (10-20); Chloride 108 mmol/L (98-107); Creatinine, Serum 0.91 mg/dL (0.55-1.02); EST Glomerular Filtration Rate 66 mL/min (>60); Est Glom Filt Rate - Afr Amer 80 mL/min (>60); Globulin 2.6 g/dL (2.2-4.2); Glucose 111 mg/dL (74-106); Potassium 4.3 mmol/L (3.5-5.1); Protein, Total 6.4 g/dL (6.4-8.2); Sodium Level 138 mmol/L (136-145)
== END 2023-12-08 18:00 | disposition home or self-care (01) ==
LOC: LAB 09:31
PROVIDERS: PCP Family Medicine; Referring Provider Internal Medicine Rheumatology; Visit Provider Internal Medicine Rheumatology
DX: M06.041 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 rheumatoid factor, right hand (principal); Z79.899 Other long term (current) drug therapy; M79.7 Fibromyalgia; M18.11 Unilateral primary osteoarthritis of first carpometacarpal joint, right hand
CPT/HCPCS: 36415; 80053; 85025

== ENCOUNTER 2024-06-15 10:19 | Outpatient (RCR) | payer OTHER, SELFPAY ==
[2024-06-15 10:44] LABS: Absolute Lymphocyte Count 2.22 X10^3/uL (0.83-4.51); Absolute Neutrophil Count 4.3 X10^3/uL (2.0-7.7); Basophil# 0.07 X10^3/uL; Eosinophil# 0.15 X10^3/uL; Eosinophils% 2.1 % (0-5); Hematocrit 43.2 % (37-47); Hemoglobin 15.2 g/dL (12.0-15.0); Lymphocyte # 2.22 X10^3/ul (0.83-4.51); Lymphocyte % 30.5 % (19-41); Mean Corp Hgb Conc 35.2 g/dL (32-36); Mean Corpuscular Volume 93.9 fL (81-99); Mean Platelet Vol. 9.8 fl (6.2-12.0); Monocyte# 0.53 X10^3/uL; Monocyte% 7.3 % (0-10); NRBC Flagged by Analyzer 0 % (0-5); Neutrophil # 4.29 X10^3/uL (2.7-7.7); Neutrophil % 58.7 % (47-70); Platelet Count 298 K/mm3 (150-450); RBC Distribution Width CV 12.7 % (11.6-14.6); RBC Distribution Width SD 43.5 fl (35.1-43.9); White Blood Count 7.3 K/mm3 (4.4-11.0)
[2024-06-15 11:47] LABS: ALB/GLOB Ratio 2.3 RATIO (0.9-2.4); AST(SGOT) 15 U/L (<=31); Alanine Aminotransfer ALT/SGPT 11 U/L (<=34); Albumin, Serum 4.6 g/dL (3.4-4.8); Alkaline Phosphatase 67 U/L (35-104); Anion Gap 10 (5-15); BUN 13 mg/dL (4-19); BUN/Creat Ratio 14.5 RATIO (10-20); Calcium,Total 9.4 mg/dL (7.6-11.0); Carbon Dioxide 24.8 mmol/L (21.0-32.0); Chloride 104 mmol/L (98-108); Creatinine, Serum 0.88 mg/dL (0.70-1.20); EST Glomerular Filtration Rate 73 (>60); Globulin 2.1 g/dL (2.2-4.2); Glucose 102 mg/dL (70-99); Potassium 4.9 mmol/L (3.3-5.1); Protein, Total 6.7 g/dL (5.9-8.4); Sodium Level 138 mmol/L (133-145); Total Bilirubin 0.41 mg/dL (0.00-1.30)
== END 2024-06-23 18:00 | disposition home or self-care (01) ==
LOC: LAB 10:19
PROVIDERS: PCP Family Medicine; Referring Provider Internal Medicine Rheumatology; Visit Provider Internal Medicine Rheumatology
DX: M06.041 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 rheumatoid factor, right hand (principal); Z79.899 Other long term (current) drug therapy; M79.7 Fibromyalgia; M18.11 Unilateral primary osteoarthritis of first carpometacarpal joint, right hand; M47.897 Other spondylosis, lumbosacral region
CPT/HCPCS: 36415; 80053; 85025

== ENCOUNTER → 2024-08-31 | Outpatient (CLI) | payer OTHER, SELFPAY ==
[2024-08-31 11:36] LABS: Hematocrit 42.1 % (37-47); Hemoglobin 14.6 g/dL (12.0-15.0); Immature Granulocytes Count 0.010 X10^3/uL (0.0-0.0); Mean Corp Hgb Conc 34.7 g/dL (32-36); Mean Corpuscular Volume 94.4 fL (81-99); Mean Platelet Vol. 10.8 fl (6.2-12.0); NRBC Flagged by Analyzer 0 % (0-5); Platelet Count 264 K/mm3 (150-450); RBC Distribution Width CV 12.3 % (11.6-14.6); RBC Distribution Width SD 43.0 fl (35.1-43.9); Red Blood Count 4.46 M/mm3 (4.2-5.4); White Blood Count 4.8 K/mm3 (4.4-11.0)
[2024-08-31 12:40] LABS: AST(SGOT) 17 U/L (<=31); Alanine Aminotransfer ALT/SGPT 13 U/L (<=34); Albumin, Serum 4.5 g/dL (3.4-4.8); Alkaline Phosphatase 62 U/L (35-104); Anion Gap 11 (5-15); BUN 14 mg/dL (4-19); BUN/Creat Ratio 14.9 RATIO (10-20); Calcium,Total 9.2 mg/dL (7.6-11.0); Carbon Dioxide 23.4 mmol/L (21.0-32.0); Chloride 105 mmol/L (98-108); Globulin 2.0 g/dL (2.2-4.2); Glucose 109 mg/dL (70-99); Potassium 4.3 mmol/L (3.3-5.1)
== END | disposition home or self-care (01) ==
PROVIDERS: PCP Family Medicine; Referring Provider Internal Medicine Rheumatology; Visit Provider Internal Medicine Rheumatology
DX: M06.041 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 rheumatoid factor, right hand (principal); M79.7 Fibromyalgia; M18.11 Unilateral primary osteoarthritis of first carpometacarpal joint, right hand; Z79.899 Other long term (current) drug therapy
CPT/HCPCS: 36415; 80053; 85025

== ENCOUNTER → 2024-09-09 | Outpatient (CLI) | payer OTHER, SELFPAY ==
--- NOTE | 2024-09-09 10:01 | BI_ITS ---
EXAM: SCRN MAMM (CAD)W/SOULEYMANE BILAT DATE: 09/09/2024 CLINICAL HISTORY: F, Age 64 y/o , ANNUAL EXAMINATION Grandmother with breast cancer. Prior bilateral excisional breast biopsies. TECHNIQUE: SCRN MAMM (CAD)W/SOULEYMANE BILAT COMPARISON: Prior exam(s) dated prior study dated October 30, 2022.. FINDINGS: TISSUE DENSITY: There are scattered areas of fibroglandular density. Bilateral Breast Mammographic Findings: No significant masses, calcifications or other abnormalities are identified. Stable 5.3 mm x 5.3 mm nodular density in the upper lateral aspect of the right breast. Prior sonogram demonstrated this to be a small cyst. No suspicious masses, areas of developing architectural distortion, or suspicious calcifications. There has been no significant interval change. BI/SCRN MAMM (CAD)W/SOULEYMANE BILAT IMPRESSION: Stable examination. OVERALL FINAL ASSESSMENT BI-RADS 2: BENIGN RECOMMENDATION: Routine annual follow-up in 1 Year A letter with findings and recommendations will be mailed to the patient. Reading Location: [place] [id number]
--- OUTSIDE RECORDS SUMMARY | 2024-09-09 18:43 | XMS RPT_ITS | CCD ---
Author Organization [facility] Care Team Providers Care Stripper Soft [employer]astic Name Role Phone ANNA MORENO Unavailable Unavailable ANNA MORENO Unavailable Unavailable ELIO ADAMS MD Admitting Unavailable ELIO ADAMS MD Attending Unavailable ELIO ADAMS MD Primary Care Unavailable YOHANNES SOSA Consulting Unavailable PROVIDER, UNKNOWN Consulting Unavailable ELIO ADAMS MD Admitting Unavailable ELIO ADAMS MD Attending Unavailable ELIO ADAMS MD Primary Care Unavailable YOHANNES SOSA Consulting Unavailable PROVIDER, UNKNOWN Consulting Unavailable ELIO ADAMS MD Admitting Unavailable ELIO ADAMS MD Attending Unavailable ELIO ADAMS MD Primary Care Unavailable YOHANNES SOSA Consulting Unavailable PROVIDER, UNKNOWN Consulting Unavailable ELIO ADAMS MD Admitting Unavailable ELIO ADAMS MD Attending Unavailable ELIO ADAMS MD Primary Care Unavailable YOHANNES SOSA Consulting Unavailable PROVIDER, UNKNOWN Consulting Unavailable PILAR RODRIGUEZ DO Primary Care Unavailab PILAR Fragoso DO Attending Unavailab DR ZAY Landaverde MD Consulting Unavailabl PILAR Cunha DO Primary Care Physician Angie Elio Referring Unavailable Tyrellanki Elio Attending Unavailable Mg, Chalon Primary Care Unavailable Vellanki, Elio Referring Unavailable Mg, Chalon Primary Care Unavailable Vellanki, Elio Attending Unavailable Vellanki, Elio Attending Unavailable Tyrellanki, Elio Referring Unavailable Care Physician, No Primary Primary Care Unava ilable Mg, Chalon Primary Care Unavailable Mg, Chalon Attending Unavailable Vellanki, Elio Referring Unavailable Vellanki, Elio Attending Unavailable Mg, Chalon Primary Care Unavailable Vellanki, Elio Referring Unavailable Vellanki, Elio Attending Unavailable Mg, Chalon Primary Care Unavailable Vellanki MD, Dr. Elio Attending Provider Angie HAYWOOD, Dr. Mcpherson Referring Provider Tamika Holliday MD Primary Care Provider [phone] Problems Active Problems Problem Classification Problem Date Documented Date Episodic/Chronic Osteoarthritis (2 sources) Unilateral primary osteoarthritis of first carpometacarpal joint, right hand; Translations: [Unilateral primary osteoarthritis of first carpometacarpal joint, right hand] Onset: 09-24-2023 Chronic Other aftercare (5 sources) Other fci (current) drug therapy; Translations: [Other fci (current) drug therapy] Onset: 02-03-2018 Episodic Other connective tissue disease (2 sources) Fibromyalgia; Translations: [Fibromyalgia] Onset: 09-24-2023 Episodic Other screening for suspected conditions (not mental disorders or infectious disease) (2 sources) Encounter for screening for malignant neoplasm of colon; Translations: [Encounter for screening for malignant neoplasm of colon] Onset: 06-24-2024 Episodic Rheumatoid arthritis and related disease (2 sources) 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 rheumatoid factor, right hand; Translations: [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 rheumatoid factor, right hand] Onset: 09-24-2023 Chronic Spondylosis; intervertebral disc disorders; other back problems (1 source) Other spondylosis, lumbosacral region; Translations: [Other spondylosis, lumbosacral region] Onset: 09-24-2023 Chronic Unclassified (1 source) Unknown / UNK(Unknown) Onset: 06-18-2017 Past or Other Problems Problem Classification Problem Date Documented Da te Episodic/Chronic Malaise and fatigue (1 source) Other fatigue; Translations: [Other fatigue] Onset: 11-05-2023 Episodic Results Test Name Value Interpretation Reference Range Facility Absolute lymphocyte countOrd ered By: Elio Adams on 08-31-2024 Lymphocytes Auto (Unsp spec) [#/Vol] 1.69 10*3/uL 0.83-4.51 [facility] Absolute neutrophil countOrd ered By: Elio Adams on 08-31-2024 Neutrophils (Bld) [#/Vol] 2.4 10*3/uL 2.0-7.7 [facility] Anion gap in Serum or Plasma Ordered By: Elio Adams on 08-31-2024 Anion gap [Moles/Vol] 11 mmol/L 5-15 [facility] Automated lymphocyte count a s percentage of total leukocytesOrdered By: Elio Adams on 08-31-2024 Lymphocytes/100 WBC Auto (Unsp spec) 35.4 % 19-41 [facility] BUN/creatinine ratioOrdered By: Elio Adams on 08-31-2024 Urea nitrogen/Creatinine [Mass ratio] 14.9 mg/mg 10-20 [facility] Basophil percentageOrdered B y: Elio Adams on 08-31-2024 Basophils/100 WBC (Bld) 1.3 % High 0-1 [facility] Bilirubin, totalOrdered By: Elioxochitl Adams on 08-31-2024 Bilirubin [Mass/Vol] 0.46 mg/dL 0.00-1.30 [facility] CBC W/Diff, Automatedon Absolute Lymph 1.69 X10 3/uL Normal 0.83-4.51 [facility] Comment on above: Performed By: #### L 500.4050, L100.0100 #### [facility] [address] [place], [address] Absolute Neut 2.4 X10 3/uL Normal 2.0-7.7 [facility] Comment on above: Performed By: #### L 500.4050, L100.0100 #### [facility] [address] [place], [address] Basophils/100 WBC (Bld) 1.3 % High 0-1 [facility] Comment on above: Performed By: #### L 500.4050, L100.0100 #### [facility] [address] [place], [address] Eosinophils/100 WBC (Bld) 3.6 % Normal 0-5 [facility] Comment on above: Performed By: #### L 500.4050, L100.0100 #### [facility] [address] [place], [address] Erythrocyte distribution width (RBC) [Ratio] 12.3 % Normal 11.6-14.6 [facility] Comment on above: Performed By: #### L 500.4050, L100.0100 #### [facility] [address] [place], [address] Hematocrit (Bld) [Volume fraction] 42.1 % Normal 37-47 [facility] Comment on above: Performed By: #### L 500.4050, L100.0100 #### [facility] [address] [place], [address] Hemoglobin (Bld) [Mass/Vol] 14.6 g/dL Normal 12.0-15.0 [facility] Comment on above: Performed By: #### L 500.4050, L100.0100 #### [facility] [address] [place], [address] IG% 0.200 Normal 0.0-0.9 [facility] Comment on above: Result Comment: IG% - Immature Granulocytes (promyelocytes, myelocytes and metamyelocytes) > 1% indicates that a LEFT SHIFT is Present. Performed By: #### L 500.4050, L100.0100 #### [facility] [address] [place], [address] Lymphocytes/100 WBC (Bld) 35.4 % Normal 19-41 [facility] Comment on above: Performed By: #### L 500.4050, L100.0100 #### [facility] [address] [place], [address] MCH (RBC) [Entitic mass] 32.7 pg High 27.0-32.0 [facility] Comment on above: Performed By: #### L 500.4050, L100.0100 #### [facility] [address] [place], [address] MCHC (RBC) [Mass/Vol] 34.7 g/dL Normal 32-36 [facility] Comment on above: Performed By: #### L 500.4050, L100.0100 #### [facility] [address] [place], [address] MCV (RBC) [Entitic vol] 94.4 fL Normal 81-99 [facility] Comment on above: Performed By: #### L 500.4050, L100.0100 #### [facility] [address] [place], [address] Monocytes/100 WBC (Bld) 9.4 % Normal 0-10 [facility] Comment on above: Performed By: #### L 500.4050, L100.0100 #### [facility] [address] [place], [address] Neutrophils/100 WBC (Bld) 50.1 % Normal 47-70 [facility] Comment on above: Performed By: #### L 500.4050, L100.0100 #### [facility] [address] [place], [address] Nucleated RBC (Bld) [#/Vol] 0 10*3/uL Normal 0-5 [facility] Comment on above: Performed By: #### L 500.4050, L100.0100 #### [facility] [address] [place], [address] Platelet mean volume (Bld) [Entitic vol] 10.8 fL Normal 6.2-12.0 [facility] Comment on above: Performed By: #### L 500.4050, L100.0100 #### [facility] [address] [place], [address] Platelets (Bld) [#/Vol] 264 10*3/uL Normal 150-450 [facility] Comment on above: Performed By: #### L 500.4050, L100.0100 #### [facility] [address] [place], [address] RBC (Bld) [#/Vol] 4.46 10*6/uL Normal 4.2-5.4 [facility] Comment on above: Performed By: #### L 500.4050, L100.0100 #### [facility] [address] [place], [address] RDW SD 43.0 fl Normal 35.1-43.9 [facility] Comment on above: Performed By: #### L 500.4050, L100.0100 #### [facility] [address] [place], [address] WBC (Bld) [#/Vol] 4.8 10*3/uL Normal 4.4-11.0 [facility] Comment on above: Performed By: #### L 500.4050, L100.0100 #### [facility] [address] [place], [address] Carbon dioxide, total [Moles /volume] in Central venous bloodOrdered By: Elio Adams on 08-31-2024 CO2 [Moles/Vol] 23.4 mmol/L 21.0-32.0 [facility] Chloride assayOrdered By: Cuong Adams on 08-31-2024 Chloride [Moles/Vol] 105 mmol/L 98-108 [facility] Comprehensive Metabolic Prof ilon 08-31-2024 Albumin [Mass/Vol] 4.5 g/dL Normal 3.4-4.8 [facility] Comment on above: Performed By: #### L 500.4050, L100.0100 #### [facility] [address] [place], [address] Albumin/Globulin [Mass ratio] 2.2 {ratio} Normal 0.9-2.4 [facility] Comment on above: Performed By: #### L 500.4050, L100.0100 #### [facility] [address] [place], [address] ALK PHOS 62 U/L Normal 35-104 [facility] Comment on above: Performed By: #### L 500.4050, L100.0100 #### [facility] [address] [place], [address] ALT [Catalytic activity/Vol] 13 U/L Normal <=34 [facility] Comment on above: Performed By: #### L 500.4050, L100.0100 #### [facility] [address] [place], [address] AST [Catalytic activity/Vol] 17 U/L Normal <=31 [facility] Comment on above: Performed By: #### L 500.4050, L100.0100 #### [facility] [address] [place], [address] Bilirubin [Mass/Vol] 0.46 mg/dL Normal 0.00-1.30 [facility] Comment on above: Performed By: #### L 500.4050, L100.0100 #### [facility] [address] [place], [address] BUN/CRE 14.9 RATIO Normal 10-20 [facility] Comment on above: Performed By: #### L 500.4050, L100.0100 #### [facility] [address] [place], [address] Calcium [Mass/Vol] 9.2 mg/dL Normal 7.6-11.0 [facility] Comment on above: Performed By: #### L 500.4050, L100.0100 #### [facility] [address] [place], [address] Chloride [Moles/Vol] 105 mmol/L Normal 98-108 [facility] Comment on above: Performed By: #### L 500.4050, L100.0100 #### [facility] [address] [place], [address] CO2 [Moles/Vol] 23.4 mmol/L Normal 21.0-32.0 [facility] Comment on above: Performed By: #### L 500.4050, L100.0100 #### [facility] [address] [place], [address] Creatinine [Mass/Vol] 0.91 mg/dL Normal 0.70-1.20 [facility] Comment on above: Performed By: #### L 500.4050, L100.0100 #### [facility] [address] [place], [address] GAP 11 Normal 5-15 [facility] Comment on above: Performed By: #### L 500.4050, L100.0100 #### [facility] [address] [place], [address] GFR/1.73 sq M.predicted among non-blacks MDRD (S/P/Bld) [Vol rate/Area] 71 mL/min/{1.73_m2} Normal >60 [facility] Comment on above: Result Comment: mL/m in/1.73m2 CKD-EPI Creatinine Equation (2020) Performed By: #### L 500.4050, L100.0100 #### [facility] [address] [place], [address] Globulin (S) [Mass/Vol] 2.0 g/dL Low 2.2-4.2 [facility] Comment on above: Performed By: #### L 500.4050, L100.0100 #### [facility] [address] [place], [address] Glucose [Mass/Vol] 109 mg/dL High 70-99 [facility] Comment on above: Performed By: #### L 500.4050, L100.0100 #### [facility] [address] [place], [address] Potassium [Moles/Vol] 4.3 mmol/L Normal 3.3-5.1 [facility] Comment on above: Performed By: #### L 500.4050, L100.0100 #### [facility] [address] [place], [address] Sodium [Moles/Vol] 139 mmol/L Normal 133-145 [facility] Comment on above: Performed By: #### L 500.4050, L100.0100 #### [facility] [address] [place], [address] T PROT 6.5 g/dL Normal 5.9-8.4 [facility] Comment on above: Performed By: #### L 500.4050, L100.0100 #### [facility] [address] [place], [address] Urea nitrogen [Mass/Vol] 14 mg/dL Normal 4-19 [facility] Comment on above: Performed By: #### L 500.4050, L100.0100 #### [facility] [address] [place], [address] Eosinophil percentageOrdered By: Elio Adams on 08-31-2024 Eosinophils/100 WBC (Bld) 3.6 % 0-5 [facility] Erythrocyte distribution wid th ratioOrdered By: Elio Adams on 08-31-2024 Erythrocyte distribution width (RBC) [Ratio] 12.3 % 11.6-14.6 [facility] Erythrocyte distribution wid th standard deviationOrdered By: Elio Adams on 08-31-2024 Erythrocyte distribution width (RBC) [Ratio] 43.0 fl 35.1-43.9 [facility] Glomerular filtration rate ( GFR) estimation/1.73 sq m using serum, plasma, or whole bOrdered By: Elio Adams on 08-31-2024 GFR/1.73 sq M.predicted among non-blacks MDRD (S/P/Bld) [Vol rate/Area] 71 mL/min/{1.73_m2} >60 [facility] Comment on above: mL/min/1.73m2 CKD-EP I Creatinine Equation (2020) Hematocrit Auto (Bld) [Volum e fraction]Ordered By: Elio Adams on 08-31-2024 Hematocrit (Bld) [Volume fraction] 42.1 % 37-47 [facility] Hemoglobin measurementOrdere d By: Elio Adams on 08-31-2024 Hemoglobin (Bld) [Mass/Vol] 14.6 g/dL 12.0-15.0 [facility] Immature granulocytes/100 WB C Auto (Bld)Ordered By: Elio Adams on 08-31-2024 Immature granulocytes/100 WBC (Bld) 0.200 % 0.0-0.9 [facility] Comment on above: IG% - Immature Granu locytes (promyelocytes, myelocytes and metamyelocytes) > 1% indicates that a LEFT SHIFT is Present. Laboratory - Chemistry and C hemistry - challengeOrdered By: Elio Adams on 08-31-2024 AST [Catalytic activity/Vol] 17 U/L <32 [facility] MCV (mean corpuscular volume ) determinationOrdered By: Elio Adams on 08-31-2024 MCV (RBC) [Entitic vol] 94.4 fL 81-99 [facility] Mean corpuscular hemoglobin (MCH) determinationOrdered By: Elio Adams on 08-31-2024 MCH (RBC) [Entitic mass] 32.7 pg High 27.0-32.0 [facility] Mean corpuscular hemoglobin concentration (MCHC) determinationOrdered By: Elio Adams on 08-31-2024 MCHC (RBC) [Mass/Vol] 34.7 g/dL 32-36 [facility] Mean platelet volume determi nationOrdered By: Elio Adams on 08-31-2024 Platelet mean volume (Bld) [Entitic vol] 10.8 fL 6.2-12.0 [facility] Monocyte percentageOrdered B y: Elio Adams on 08-31-2024 Monocytes/100 WBC (Bld) 9.4 % 0-10 [facility] Neutrophil percentageOrdered By: Elio Adams on 08-31-2024 Neutrophils/100 WBC (Bld) 50.1 % 47-70 [facility] Nucleated red blood cell per centageOrdered By: Elio Adams on 08-31-2024 Nucleated RBC/100 WBC (Bld) [Ratio] 0 % 0-5 [facility] Platelet countOrdered By: Cuong Adams on 08-31-2024 Platelets (Bld) [#/Vol] 264 10*3/uL 150-450 [facility] Potassium measurement (mass/ volume)Ordered By: Elio Adams on 08-31-2024 Potassium (Unsp spec) [Mass/Vol] 4.3 mmol/L 3.3-5.1 [facility] RBC Auto (Bld) [#/Vol]Ordere d By: Elio Adams on 08-31-2024 RBC (Bld) [#/Vol] 4.46 10*6/uL 4.2-5.4 [facility] Serum creatinine measurement (mass/volume)Ordered By: Elio Adams on 08-31-2024 Creatinine [Mass/Vol] 0.91 mg/dL 0.70-1.20 [facility] Serum globulin measurementOr dered By: Elio Adams on 08-31-2024 Globulin (S) [Mass/Vol] 2.0 g/dL Low 2.2-4.2 [facility] Serum glucose measurement (m ass/volume)Ordered By: Elio Adams on 08-31-2024 Glucose [Mass/Vol] 109 mg/dL High 70-99 [facility] Serum or plasma alanine mendenhall otransferase (ALT) measurementOrdered By: Elio Adams on 08-31-2024 ALT [Catalytic activity/Vol] 13 U/L <35 [facility] Serum or plasma albumin claudia urement (mass/volume)Ordered By: Elio Adams on 08-31-2024 Albumin [Mass/Vol] 4.5 g/dL 3.4-4.8 [facility] Serum or plasma albumin/glob ulin mass ratioOrdered By: Elio Adams on 08-31-2024 Albumin/Globulin [Mass ratio] 2.2 {ratio} 0.9-2.4 [facility] Serum or plasma alkaline dorothy sphatase measurementOrdered By: Elio Adams on 08-31-2024 ALP [Catalytic activity/Vol] 62 U/L 35-104 [facility] Serum or plasma calcium claudia urement (mass/volume)Ordered By: Elio Admas on 08-31-2024 Calcium [Mass/Vol] 9.2 mg/dL 7.6-11.0 [facility] Serum or plasma urea nitroge n measurement (mass/volume)Ordered By: Elio Adams on 08-31-2024 Urea nitrogen [Mass/Vol] 14 mg/dL 4-19 [facility] Sodium levelOrdered By: Yuval Adasm on 08-31-2024 Sodium [Moles/Vol] 139 mmol/L 133-145 [facility] Total proteinOrdered By: Delmi Adams on 08-31-2024 Protein [Mass/Vol] 6.5 g/dL 5.9-8.4 [facility] White blood cell (WBC) count Ordered By: Elio Adams on 08-31-2024 WBC (Bld) [#/Vol] 4.8 10*3/uL 4.4-11.0 [facility] Final Surgical Pathology Rep [facility] 06-28-2024 Final Surgical Pathology Report . Pathology Reports Accession: Collected Date/Time: Received Date/Time: Pathologist: [id number] 06/24/2024 10:00 EDT 06/25/2024 11:04 EDT MD SHARAD PATIÑO Final Surgical Pathology Report DIAGNOSIS: DISTAL SIGMOID COLON, BIOPSY: - HYPERPLASTIC POLYP CLINICAL INFORMATION: R/O ADENOMA; SCREENING Procedure: COLONOSCOPY SPECIMEN: A DISTAL SIGMOID COLON POLYP GROSS DESCRIPTION: All parts labelled with patient name and [id number] Received in formalin labeled distal sigmoid polyp biopsy are 5 arboleda-brown tissue fragments measuring 0.2 x 0.1 to 0.4 x 0.3 cm greatest dimension. Smallest fragments may not survive processing. TS-1 Drea Calle, Grossing Jewelry Dipper/ Dr. Nitish Feliciano, Pathologist Performed by Drea Calle MICROSCOPIC DESCRIPTION: The microscopic examination is performed, except in the case of Gross Only. Verified by Diagnostic interpretation performed at [facility] SHARAD PATIÑO MD Sign out Date: 06/28/2024 17:03 Performing Lab: [facility], [address] [place] [address] Pathology Dept Disclaimer If ancillary studies were utilized, the following Laboratory Developed Test (LDT) disclaimer will apply: Under CLIA requirements, [facility] is qualified to perform high complexity testing. For all ancillary stains, positive and negative controls stain appropriately. Performance characteristics of immunohistochemical and chromogenic in-situ hybridization tests have been determined by [facility]. These tests are used for clinical purposes, They should not be regarded as investigational or for research. Normal [facility] Final Surgical Pathology Report Event Display: SP Disclaimer If ancillary studies were utilized, the following Laboratory Developed Test (LDT) disclaimer will apply: Under CLIA requirements, [facility] is qualified to perform high complexity testing. For all ancillary stains, positive and negative controls stain appropriately. Performance characteristics of immunohistochemical and chromogenic in-situ hybridization tests have been determined by [facility]. These tests are used for clinical purposes, They should not be regarded as investigational or for research. MD SHARAD PATIÑO:VERIFY; Authored Date: [facility] Work Phone: Final Surgical Pathology Report Event Display: SP Micro The microscopic examination is performed, except in the case of Gross Only. MD SHARAD PATIÑO:VERIFY; Authored Date: [facility] Work Phone: Final Surgical Pathology Report Event Display: SP Specimen A DISTAL SIGMOID COLON POLYP MD SHARAD PATIÑO:VERIFY; Authored Date: [id number] [facility] Work Phone: Final Surgical Pathology Report Event Display: SP Gross All parts labelled with patient name and [id number] Received in formalin labeled distal sigmoid polyp biopsy are 5 arboleda-brown tissue fragments measuring 0.2 x 0.1 to 0.4 x 0.3 cm greatest dimension. Smallest fragments may not survive processing. TS-1 Drea Calle, Grossing Jewelry Dipper/ Dr. Nitish Feliciano, Pathologist Performed by MD SHARAD Castillo:VERIFY; Authored Date: [id number] [facility] Work Phone: Final Surgical Pathology Report Event Display: SP Signature Diagnostic interpretation performed at [facility] SHARAD PATIÑO MD Sign out Date: 06/28/2024 17:03 Performing Lab: [facility], [address] [place] [address] Pathology Dept MD SHARAD PATIÑO:VERIFY; Authored Date: [id number] [facility] Work Phone: Final Surgical Pathology Report Event Display: SP Dx DISTAL SIGMOID COLON, BIOPSY: - HYPERPLASTIC POLYP MD SHARAD PATIÑO:VERIFY; Authored Date: [id number] [facility] Work Phone: Absolute lymphocyte countOrd ered By: Elio Adams on 06-15-2024 Lymphocytes Auto (Unsp spec) [#/Vol] 2.22 10*3/uL 0.83-4.51 [facility] Absolute neutrophil countOrd ered By: Elio Adams on 06-15-2024 Neutrophils (Bld) [#/Vol] 4.3 10*3/uL 2.0-7.7 [facility] Anion gap in Serum or Plasma Ordered By: Elio Adams on 06-15-2024 Anion gap [Moles/Vol] 10 mmol/L 5-15 [facility] Automated lymphocyte count a s percentage of total leukocytesOrdered By: Elio Adams on 06-15-2024 Lymphocytes/100 WBC Auto (Unsp spec) 30.5 % 19-41 [facility] BUN/creatinine ratioOrdered By: Elio Adams on 06-15-2024 Urea nitrogen/Creatinine [Mass ratio] 14.5 mg/mg 10-20 [facility] Basophil percentageOrdered B y: Elio Adams on 06-15-2024 Basophils/100 WBC (Bld) 1.0 % 0-1 [facility] Bilirubin, totalOrdered By: Elio Adams on 06-15-2024 Bilirubin [Mass/Vol] 0.41 mg/dL 0.00-1.30 [facility] CBC W/Diff, Automatedon 05-26 Absolute Lymph 2.22 X10 3/uL Normal 0.83-4.51 [facility] Comment on above: Performed By: #### L 100.0100, L500.4050 #### [facility] [address] [place], [address] Absolute Neut 4.3 X10 3/uL Normal 2.0-7.7 [facility] Comment on above: Performed By: #### L 100.0100, L500.4050 #### [facility] [address] [place], [address] Basophils/100 WBC (Bld) 1.0 % Normal 0-1 [facility] Comment on above: Performed By: #### L 100.0100, L500.4050 #### [facility] [address] [place], [address] Eosinophils/100 WBC (Bld) 2.1 % Normal 0-5 [facility] Comment on above: Performed By: #### L 100.0100, L500.4050 #### [facility] [address] [place], [address] Erythrocyte distribution width (RBC) [Ratio] 12.7 % Normal 11.6-14.6 [facility] Comment on above: Performed By: #### L 100.0100, L500.4050 #### [facility] [address] [place], [address] Hematocrit (Bld) [Volume fraction] 43.2 % Normal 37-47 [facility] Comment on above: Performed By: #### L 100.0100, L500.4050 #### [facility] [address] [place], [address] Hemoglobin (Bld) [Mass/Vol] 15.2 g/dL High 12.0-15.0 [facility] Comment on above: Performed By: #### L 100.0100, L500.4050 #### [facility] [address] [place], [address] IG% 0.400 Normal 0.0-0.9 [facility] Comment on above: Result Comment: IG% - Immature Granulocytes (promyelocytes, myelocytes and metamyelocytes) > 1% indicates that a LEFT SHIFT is Present. Performed By: #### L 100.0100, L500.4050 #### [facility] [address] [place], [address] Lymphocytes/100 WBC (Bld) 30.5 % Normal 19-41 [facility] Comment on above: Performed By: #### L 100.0100, L500.4050 #### [facility] [address] [place], [address] MCH (RBC) [Entitic mass] 33.0 pg High 27.0-32.0 [facility] Comment on above: Performed By: #### L 100.0100, L500.4050 #### [facility] Laboratory [address] [place], [address] MCHC (RBC) [Mass/Vol] 35.2 g/dL Normal 32-36 [facility] Comment on above: Performed By: #### L 100.0100, L500.4050 #### [facility] [address] [place], [address] MCV (RBC) [Entitic vol] 93.9 fL Normal 81-99 [facility] Comment on above: Performed By: #### L 100.0100, L500.4050 #### [facility] [address] [place], [address] Monocytes/100 WBC (Bld) 7.3 % Normal 0-10 [facility] Comment on above: Performed By: #### L 100.0100, L500.4050 #### [facility] [address] [place], [address] Neutrophils/100 WBC (Bld) 58.7 % Normal 47-70 [facility] Comment on above: Performed By: #### L 100.0100, L500.4050 #### [facility] [address] [place], [address] Nucleated RBC (Bld) [#/Vol] 0 10*3/uL Normal 0-5 [facility] Comment on above: Performed By: #### L 100.0100, L500.4050 #### [facility] [address] [place], [address] Platelet mean volume (Bld) [Entitic vol] 9.8 fL Normal 6.2-12.0 [facility] Comment on above: Performed By: #### L 100.0100, L500.4050 #### [facility] [address] [place], [address] Platelets (Bld) [#/Vol] 298 10*3/uL Normal 150-450 [facility] Comment on above: Performed By: #### L 100.0100, L500.4050 #### [facility] [address] [place], [address] RBC (Bld) [#/Vol] 4.60 10*6/uL Normal 4.2-5.4 [facility] Comment on above: Performed By: #### L 100.0100, L500.4050 #### [facility] [address] [place], [address] RDW SD 43.5 fl Normal 35.1-43.9 [facility] Comment on above: Performed By: #### L 100.0100, L500.4050 #### [facility] [address] [place], [address] WBC (Bld) [#/Vol] 7.3 10*3/uL Normal 4.4-11.0 [facility] Comment on above: Performed By: #### L 100.0100, L500.4050 #### [facility] [address] [place], [address] Carbon dioxide, total [Moles /volume] in Central venous bloodOrdered By: Elio Adams on 06-15-2024 CO2 [Moles/Vol] 24.8 mmol/L 21.0-32.0 [facility] Chloride assayOrdered By: Cuong Adams on 06-15-2024 Chloride [Moles/Vol] 104 mmol/L 98-108 [facility] Comprehensive Metabolic Prof ilon 06-15-2024 Albumin [Mass/Vol] 4.6 g/dL Normal 3.4-4.8 [facility] Comment on above: Performed By: #### L 100.0100, L500.4050 #### [facility] [address] [place], [address] Albumin/Globulin [Mass ratio] 2.3 {ratio} Normal 0.9-2.4 [facility] Comment on above: Performed By: #### L 100.0100, L500.4050 #### [facility] [address] [place], [address] ALK PHOS 67 U/L Normal 35-104 [facility] Comment on above: Performed By: #### L 100.0100, L500.4050 #### [facility] [address] [place], [address] ALT [Catalytic activity/Vol] 11 U/L Normal <=34 [facility] Comment on above: Performed By: #### L 100.0100, L500.4050 #### [facility] [address] [place], [address] AST [Catalytic activity/Vol] 15 U/L Normal <=31 [facility] Comment on above: Performed By: #### L 100.0100, L500.4050 #### [facility] [address] [place], [address] Bilirubin [Mass/Vol] 0.41 mg/dL Normal 0.00-1.30 [facility] Comment on above: Performed By: #### L 100.0100, L500.4050 #### [facility] [address] [place], [address] BUN/CRE 14.5 RATIO Normal 10-20 [facility] Comment on above: Performed By: #### L 100.0100, L500.4050 #### [facility] [address] [place], [address] Calcium [Mass/Vol] 9.4 mg/dL Normal 7.6-11.0 [facility] Comment on above: Performed By: #### L 100.0100, L500.4050 #### [facility] [address] [place], [address] Chloride [Moles/Vol] 104 mmol/L Normal 98-108 [facility] Comment on above: Performed By: #### L 100.0100, L500.4050 #### [facility] [address] [place], [address] CO2 [Moles/Vol] 24.8 mmol/L Normal 21.0-32.0 [facility] Comment on above: Performed By: #### L 100.0100, L500.4050 #### [facility] [address] [place], [address] Creatinine [Mass/Vol] 0.88 mg/dL Normal 0.70-1.20 [facility] Comment on above: Performed By: #### L 100.0100, L500.4050 #### [facility] [address] [place], [address] GAP 10 Normal 5-15 [facility] Comment on above: Performed By: #### L 100.0100, L500.4050 #### [facility] [address] [place], [address] GFR/1.73 sq M.predicted among non-blacks MDRD (S/P/Bld) [Vol rate/Area] 73 mL/min/{1.73_m2} Normal >60 [facility] Comment on above: Result Comment: mL/m in/1.73m2 CKD-EPI Creatinine Equation (2020) Performed By: #### L 100.0100, L500.4050 #### [facility] [address] [place], [address] Globulin (S) [Mass/Vol] 2.1 g/dL Low 2.2-4.2 [facility] Comment on above: Performed By: #### L 100.0100, L500.4050 #### [facility] [address] [place], [address] Glucose [Mass/Vol] 102 mg/dL High 70-99 [facility] Comment on above: Performed By: #### L 100.0100, L500.4050 #### [facility] [address] [place], [address] Potassium [Moles/Vol] 4.9 mmol/L Normal 3.3-5.1 [facility] Comment on above: Performed By: #### L 100.0100, L500.4050 #### [facility] [address] [place], [address] Sodium [Moles/Vol] 138 mmol/L Normal 133-145 [facility] Comment on above: Performed By: #### L 100.0100, L500.4050 #### [facility] [address] [place], [address] T PROT 6.7 g/dL Normal 5.9-8.4 [facility] Comment on above: Performed By: #### L 100.0100, L500.4050 #### [facility] [address] [place], [address] Urea nitrogen [Mass/Vol] 13 mg/dL Normal 4-19 [facility] Comment on above: Performed By: #### L 100.0100, L500.4050 #### [facility] [address] [place], [address] Eosinophil percentageOrdered By: Elio Adams on 06-15-2024 Eosinophils/100 WBC (Bld) 2.1 % 0-5 [facility] Erythrocyte distribution wid th ratioOrdered By: Elio Adams on 06-15-2024 Erythrocyte distribution width (RBC) [Ratio] 12.7 % 11.6-14.6 [facility] Erythrocyte distribution wid th standard deviationOrdered By: Elio Adams on 06-15-2024 Erythrocyte distribution width (RBC) [Ratio] 43.5 fl 35.1-43.9 [facility] Glomerular filtration rate ( GFR) estimation/1.73 sq m using serum, plasma, or whole bOrdered By: Elio Adams on 06-15-2024 GFR/1.73 sq M.predicted among non-blacks MDRD (S/P/Bld) [Vol rate/Area] 73 mL/min/{1.73_m2} >60 [facility] Comment on above: mL/min/1.73m2 CKD-EP I Creatinine Equation (2020) Hematocrit Auto (Bld) [Volum e fraction]Ordered By: Elio Adams on 06-15-2024 Hematocrit (Bld) [Volume fraction] 43.2 % 37-47 [facility] Hemoglobin measurementOrdere d By: Elio Adams on 06-15-2024 Hemoglobin (Bld) [Mass/Vol] 15.2 g/dL High 12.0-15.0 [facility] Immature granulocytes/100 WB C Auto (Bld)Ordered By: Elio Adams on 06-15-2024 Immature granulocytes/100 WBC (Bld) 0.400 % 0.0-0.9 [facility] Comment on above: IG% - Immature Granu locytes (promyelocytes, myelocytes and metamyelocytes) > 1% indicates that a LEFT SHIFT is Present. Laboratory - Chemistry and C hemistry - challengeOrdered By: Elio Adams on 06-15-2024 AST [Catalytic activity/Vol] 15 U/L <32 [facility] MCV (mean corpuscular volume ) determinationOrdered By: Elio Adams on 06-15-2024 MCV (RBC) [Entitic vol] 93.9 fL 81-99 [facility] Mean corpuscular hemoglobin (MCH) determinationOrdered By: Elio Adams on 06-15-2024 MCH (RBC) [Entitic mass] 33.0 pg High 27.0-32.0 [facility] Mean corpuscular hemoglobin concentration (MCHC) determinationOrdered By: Elio Adams on 06-15-2024 MCHC (RBC) [Mass/Vol] 35.2 g/dL 32-36 [facility] Mean platelet volume determi nationOrdered By: Elio Adams on 06-15-2024 Platelet mean volume (Bld) [Entitic vol] 9.8 fL 6.2-12.0 [facility] Monocyte percentageOrdered B y: Elio Adams on 06-15-2024 Monocytes/100 WBC (Bld) 7.3 % 0-10 [facility] Neutrophil percentageOrdered By: Elio Adams on 06-15-2024 Neutrophils/100 WBC (Bld) 58.7 % 47-70 [facility] Nucleated red blood cell per centageOrdered By: Elio Adams on 06-15-2024 Nucleated RBC/100 WBC (Bld) [Ratio] 0 % 0-5 [facility] Platelet countOrdered By: Cuong Adams on 06-15-2024 Platelets (Bld) [#/Vol] 298 10*3/uL 150-450 [facility] Potassium measurement (mass/ volume)Ordered By: Elio Adams on 06-15-2024 Potassium (Unsp spec) [Mass/Vol] 4.9 mmol/L 3.3-5.1 [facility] RBC Auto (Bld) [#/Vol]Ordere d By: Elio Adams on 06-15-2024 RBC (Bld) [#/Vol] 4.60 10*6/uL 4.2-5.4 [facility] Serum creatinine measurement (mass/volume)Ordered By: Elio Adams on 06-15-2024 Creatinine [Mass/Vol] 0.88 mg/dL 0.70-1.20 [facility] Serum globulin measurementOr dered By: Elio Adams on 06-15-2024 Globulin (S) [Mass/Vol] 2.1 g/dL Low 2.2-4.2 [facility] Serum glucose measurement (m ass/volume)Ordered By: Elio Adams on 06-15-2024 Glucose [Mass/Vol] 102 mg/dL High 70-99 [facility] Serum or plasma alanine mendenhall otransferase (ALT) measurementOrdered By: Elio Adams on 06-15-2024 ALT [Catalytic activity/Vol] 11 U/L <35 [facility] Serum or plasma albumin claudia urement (mass/volume)Ordered By: Elio Adams on 06-15-2024 Albumin [Mass/Vol] 4.6 g/dL 3.4-4.8 [facility] Serum or plasma albumin/glob ulin mass ratioOrdered By: Elio Adams 06-15-2024 Albumin/Globulin [Mass ratio] 2.3 {ratio} 0.9-2.4 [facility] Serum or plasma alkaline dorothy sphatase measurementOrdered By: Elio Adams on 06-15-2024 ALP [Catalytic activity/Vol] 67 U/L 35-104 [facility] Serum or plasma calcium claudia urement (mass/volume)Ordered By: Elio Adams on 06-15-2024 Calcium [Mass/Vol] 9.4 mg/dL 7.6-11.0 [facility] Serum or plasma urea nitroge n measurement (mass/volume)Ordered By: Elio Adams on 06-15-2024 Urea nitrogen [Mass/Vol] 13 mg/dL 4-19 [facility] Sodium levelOrdered By: Yuval Adams on 06-15-2024 Sodium [Moles/Vol] 138 mmol/L 133-145 [facility] Total proteinOrdered By: Delmi Adams on 06-15-2024 Protein [Mass/Vol] 6.7 g/dL 5.9-8.4 [facility] White blood cell (WBC) count Ordered By: Elio Adams on 06-15-2024 WBC (Bld) [#/Vol] 7.3 10*3/uL 4.4-11.0 [facility] CBC W/Diff, Automatedon 11-24 Absolute Lymph 1.40 X10 3/uL Normal 0.83-4.51 [facility] Comment on above: Performed By: #### L 500.4050, L100.0100 #### [facility] [address] [place], [address] Absolute Neut 2.0 X10 3/uL Normal 2.0-7.7 [facility] Comment on above: Performed By: #### L 500.4050, L100.0100 #### [facility] [address] [place], [address] Basophils/100 WBC (Bld) 1.0 % Normal 0-1 [facility] Comment on above: Performed By: #### L 500.4050, L100.0100 #### [facility] [address] [place], [address] Eosinophils/100 WBC (Bld) 3.2 % Normal 0-5 [facility] Comment on above: Performed By: #### L 500.4050, L100.0100 #### [facility] [address] [place], [address] Erythrocyte distribution width (RBC) [Ratio] 12.7 % Normal 11.6-14.6 [facility] Comment on above: Performed By: #### L 500.4050, L100.0100 #### [facility] [address] [place], [address] Hematocrit (Bld) [Volume fraction] 41.8 % Normal 37-47 [facility] Comment on above: Performed By: #### L 500.4050, L100.0100 #### [facility] [address] [place], [address] Hemoglobin (Bld) [Mass/Vol] 13.9 g/dL Normal 12.0-15.0 [facility] Comment on above: Performed By: #### L 500.4050, L100.0100 #### [facility] [address] [place], [address] IG% 0.200 Normal 0.0-0.9 [facility] Comment on above: Result Comment: IG% - Immature Granulocytes (promyelocytes, myelocytes and metamyelocytes) > 1% indicates that a LEFT SHIFT is Present. Performed By: #### L 500.4050, L100.0100 #### [facility] [address] [place], [address] Lymphocytes/100 WBC (Bld) 34.6 % Normal 19-41 [facility] Comment on above: Performed By: #### L 500.4050, L100.0100 #### [facility] [address] [place], [address] MCH (RBC) [Entitic mass] 31.7 pg Normal 27.0-32.0 [facility] Comment on above: Performed By: #### L 500.4050, L100.0100 #### [facility] [address] [place], [address] MCHC (RBC) [Mass/Vol] 33.3 g/dL Normal 32-36 [facility] Comment on above: Performed By: #### L 500.4050, L100.0100 #### [facility] [address] [place], [address] MCV (RBC) [Entitic vol] 95.4 fL Normal 81-99 [facility] Comment on above: Performed By: #### L 500.4050, L100.0100 #### [facility] [address] [place], [address] Monocytes/100 WBC (Bld) 11.9 % High 0-10 [facility] Comment on above: Performed By: #### L 500.4050, L100.0100 #### [facility] [address] [place], [address] Neutrophils/100 WBC (Bld) 49.1 % Normal 47-70 [facility] Comment on above: Performed By: #### L 500.4050, L100.0100 #### [facility] [address] [place], [address] Nucleated RBC (Bld) [#/Vol] 0 10*3/uL Normal 0-5 [facility] Comment on above: Performed By: #### L 500.4050, L100.0100 #### [facility] [address] [place], [address] Platelet mean volume (Bld) [Entitic vol] 10.4 fL Normal 6.2-12.0 [facility] Comment on above: Performed By: #### L 500.4050, L100.0100 #### [facility] [address] [place], [address] Platelets (Bld) [#/Vol] 237 10*3/uL Normal 150-450 [facility] Comment on above: Performed By: #### L 500.4050, L100.0100 #### [facility] [address] [place], [address] RBC (Bld) [#/Vol] 4.38 10*6/uL Normal 4.2-5.4 [facility] Comment on above: Performed By: #### L 500.4050, L100.0100 #### [facility] [address] [place], [address] RDW SD 45.1 fl High 35.1-43.9 [facility] Comment on above: Performed By: #### L 500.4050, L100.0100 #### [facility] [address] [place], [address] WBC (Bld) [#/Vol] 4.1 10*3/uL Low 4.4-11.0 [facility] Comment on above: Performed By: #### L 500.4050, L100.0100 #### [facility] [address] [place], [address] Comprehensive Metabolic [facility] 12-08-2023 Albumin [Mass/Vol] 3.8 g/dL Normal 3.2-5.0 [facility] Comment on above: Performed By: #### L 500.4050, L100.0100 #### [facility] [address] [place], [address] Albumin/Globulin [Mass ratio] 1.5 {ratio} Normal 0.9-2.4 [facility] Comment on above: Performed By: #### L 500.4050, L100.0100 #### [facility] [address] [place], [address] ALK P 63 U/L Normal 45-117 [facility] Comment on above: Performed By: #### L 500.4050, L100.0100 #### [facility] [address] [place], [address] ALT [Catalytic activity/Vol] 18 U/L Normal 13-56 [facility] Comment on above: Performed By: #### L 500.4050, L100.0100 #### [facility] [address] [place], [address] AST [Catalytic activity/Vol] 9 U/L Low 15-37 [facility] Comment on above: Performed By: #### L 500.4050, L100.0100 #### [facility] [address] [place], [address] Bilirubin [Mass/Vol] 0.30 mg/dL Normal 0.20-1.00 [facility] Comment on above: Result Comment: For patients on eltrombopag therapy, use of Dimension [place] TBIL is not recommended. Performed By: #### L 500.4050, L100.0100 #### [facility] [address] [place], [address] BUN/CRE 13.2 RATIO Normal 10-20 [facility] Comment on above: Performed By: #### L 500.4050, L100.0100 #### [facility] [address] [place], [address] CA,Total 9.0 mg/dL Normal 8.5-10.1 [facility] Comment on above: Performed By: #### L 500.4050, L100.0100 #### [facility] [address] [place], [address] Chloride [Moles/Vol] 108 mmol/L High 98-107 [facility] Comment on above: Performed By: #### L 500.4050, L100.0100 #### [facility] [address] [place], [address] CO2 [Moles/Vol] 27.0 mmol/L Normal 21.0-32.0 [facility] Comment on above: Performed By: #### L 500.4050, L100.0100 #### [facility] [address] [place], [address] Creatinine [Mass/Vol] 0.91 mg/dL Normal 0.55-1.02 [facility] Comment on above: Result Comment: The validity of the calculated GFR GFRAA in patients over 70 years has not been determined. Clinical correlation is essential. Performed By: #### L 500.4050, L100.0100 #### [facility] [address] [place], [address] EST GFR - AA 80 mL/min Normal >60 [facility] Comment on above: Result Comment: Afri can Moroccan GFR Calc Performed By: #### L 500.4050, L100.0100 #### [facility] [address] [place], [address] GAP 3 Low 5-15 [facility] Comment on above: Performed By: #### L 500.4050, L100.0100 #### [facility] [address] [place], [address] GFR/1.73 sq M.predicted among non-blacks MDRD (S/P/Bld) [Vol rate/Area] 66 mL/min/{1.73_m2} Normal >60 [facility] Comment on above: Result Comment: Non- GFR Calc Performed By: #### L 500.4050, L100.0100 #### [facility] [address] [place], [address] Globulin (S) [Mass/Vol] 2.6 g/dL Normal 2.2-4.2 [facility] Comment on above: Performed By: #### L 500.4050, L100.0100 #### [facility] [address] [place], [address] Glucose [Mass/Vol] 111 mg/dL High 74-106 [facility] Comment on above: Result Comment: Fast ing Glucose result from 100 to 125 mg/dL suggests IMPAIRED HOMEOSTASIS per A.D.A. criteria. Performed By: #### L 500.4050, L100.0100 #### [facility] [address] [place], [address] Potassium [Moles/Vol] 4.3 mmol/L Normal 3.5-5.1 [facility] Comment on above: Performed By: #### L 500.4050, L100.0100 #### [facility] [address] [place], [address] Sodium [Moles/Vol] 138 mmol/L Normal 136-145 [facility] Comment on above: Performed By: #### L 500.4050, L100.0100 #### [facility] [address] [place], [address] T PROT 6.4 g/dL Normal 6.4-8.2 [facility] Comment on above: Performed By: #### L 500.4050, L100.0100 #### [facility] [address] [place], [address] Urea nitrogen [Mass/Vol] 12 mg/dL Normal 7-18 [facility] Comment on above: Performed By: #### L 500.4050, L100.0100 #### [facility] [address] [place], [address] Estrogen, Total, Serumon ESTROGENS,TOTAL 64 pg/mL Normal 40-244 [facility] Comment on above: Order Comment: N Result Comment: Prep ubertal < 40 Female Cycle: 1-10 Days 16 - 328 11-20 Days 34 - 501 21-30 Days 48 - 350 Post-Menopausal 40 - 244 Performed at: - [address] [id number] [place]: Edith Griffiths MD, Phone: [phone] Performed By: #### L 500.4050, L100.0100 #### [facility] [address] [place], [address] PROGESTERONE 4317on 10-27-19 24 PROGESTERONE <0.1 Normal . [facility] Comment on above: Order Comment: N Result Comment: Foll icular phase 0.1 - 0.9 Luteal phase 1.8 - 23.9 Ovulation phase 0.1 - 12.0 First trimester 11.0 - 44.3 Second trimester 25.4 - 83.3 Third trimester 58.7 - 214.0 Postmenopausal 0.0 - 0.1 Performed at: [address] [id number] [place]: Zay Calle PhD, Phone: [phone] Performed By: #### L 500.4050, L100.0100 #### [facility] [address] [place], [place], [id number] FSH and LHon 10-24-2023 FSH 83.5 mIU/mL Normal [facility] Comment on above: Result Comment: NORMAL REFERENCE RANGES FEMALE FOLLICULAR 2.3 - 12.6 mIU/mL MID-CYCLE PEAK 5.2 - 17.5 mIU/mL LUTEAL 1.7 - 12.9 mIU/mL POST-MENOPAUSAL ON MHT 5.9 - 72.8 mIU/mL NOT ON MHT 12.7 - 132.2 mlU/mL MALE 0.7 - 10.8 mIU/mL Performed By: #### L 500.4050, L100.0100 #### [facility] [address] [place], [place], [address] LH 49.6 mIU/mL Normal [facility] Comment on above: Result Comment: NORMAL REFERENCE RANGES FEMALE FOLLICULAR 1.9 - 26.2 mIU/mL MID-CYCLE PEAK 22.8 - 76.1 mIU/mL LUTEAL 0.6 - 16.6 mIU/mL POST-MENOPAUSAL ON MHT 1.1 - 52.4 mIU/mL NOT ON MHT 8.6 - 61.8 mIU/mL MALE 1.2 - 10.6 mIU/mL Performed By: #### L 500.4050, L100.0100 #### [facility] [address] [place], [place], [id number] Thyroid Stim Hormone (TSH)on 10-24-2023 TSH 1.690 uIU/mL Normal 0.358-3.740 [facility] Comment on above: Performed By: #### L 801.2600, L3100.5055, L506.1000, L501.9520, L3400.0200 #### [facility] [address] [place], [address] Vitamin D,25 Hydroxyon 10-23 Vitamin D 25-OH 46.8 ng/mL Normal [facility] Comment on above: Result Comment: Betty min D 25(OH) Status Range Deficiency <20 ng/mL (50nmol/L) Insufficiency 20 - 30 ng/mL (50 - 75 nmol/L) Sufficiency 30 - 100 ng/mL (75 - 250 nmol/L) Toxicity >100 ng/mL (>250 nmol/L) Performed By: #### L 801.2600, L3100.5055, L506.1000, L501.9520, L3400.0200 #### [facility] [address] [place], [address] CBC W/Diff, Automatedon 08-24 Absolute Lymph 2.81 X10 3/uL Normal 0.83-4.51 [facility] Comment on above: Performed By: #### L 500.4050, L100.0100 #### [facility] [address] [place], [address] Absolute Neut 3.1 X10 3/uL Normal 2.0-7.7 [facility] Comment on above: Performed By: #### L 500.4050, L100.0100 #### [facility] [address] [place], [address] Basophils/100 WBC (Bld) 0.9 % Normal 0-1 [facility] Comment on above: Performed By: #### L 500.4050, L100.0100 #### [facility] [address] [place], [address] Eosinophils/100 WBC (Bld) 2.2 % Normal 0-5 [facility] Comment on above: Performed By: #### L 500.4050, L100.0100 #### [facility] [address] [place], [address] Erythrocyte distribution width (RBC) [Ratio] 12.4 % Normal 11.6-14.6 [facility] Comment on above: Performed By: #### L 500.4050, L100.0100 #### [facility] [address] [place], [address] Hematocrit (Bld) [Volume fraction] 42.6 % Normal 37-47 [facility] Comment on above: Performed By: #### L 500.4050, L100.0100 #### [facility] [address] [place], [address] Hemoglobin (Bld) [Mass/Vol] 14.3 g/dL Normal 12.0-15.0 [facility] Comment on above: Performed By: #### L 500.4050, L100.0100 #### [facility] [address] [place], [address] IG% 0.300 Normal 0.0-0.9 [facility] Comment on above: Result Comment: IG% - Immature Granulocytes (promyelocytes, myelocytes and metamyelocytes) > 1% indicates that a LEFT SHIFT is Present. Performed By: #### L 500.4050, L100.0100 #### [facility] [address] [place], [address] Lymphocytes/100 WBC (Bld) 41.6 % High 19-41 [facility] Comment on above: Performed By: #### L 500.4050, L100.0100 #### [facility] [address] [place], [address] MCH (RBC) [Entitic mass] 31.6 pg Normal 27.0-32.0 [facility] Comment on above: Performed By: #### L 500.4050, L100.0100 #### [facility] [address] [place], [address] MCHC (RBC) [Mass/Vol] 33.6 g/dL Normal 32-36 [facility] Comment on above: Performed By: #### L 500.4050, L100.0100 #### [facility] [address] [place], [address] MCV (RBC) [Entitic vol] 94.2 fL Normal 81-99 [facility] Comment on above: Performed By: #### L 500.4050, L100.0100 #### [facility] [address] [place], [address] Monocytes/100 WBC (Bld) 9.6 % Normal 0-10 [facility] Comment on above: Performed By: #### L 500.4050, L100.0100 #### [facility] [address] [place], [address] Neutrophils/100 WBC (Bld) 45.4 % Low 47-70 [facility] Comment on above: Performed By: #### L 500.4050, L100.0100 #### [facility] [address] [place], [address] Nucleated RBC (Bld) [#/Vol] 0 10*3/uL Normal 0-5 [facility] Comment on above: Performed By: #### L [id number], L100.0100 #### [facility] [address] [place], [address] Platelet mean volume (Bld) [Entitic vol] 10.3 fL Normal 6.2-12.0 [facility] Comment on above: Performed By: #### L [id number], L100.0100 #### [facility] [address] [place], [address] Platelets (Bld) [#/Vol] 280 10*3/uL Normal 150-450 [facility] Comment on above: Performed By: #### L [id number], L100.0100 #### [facility] [address] [place], [address] RBC (Bld) [#/Vol] 4.52 10*6/uL Normal 4.2-5.4 [facility] Comment on above: Performed By: #### L [id number], L100.0100 #### [facility] [address] [place], [address] RDW SD 43.2 fl Normal 35.1-43.9 [facility] Comment on above: Performed By: #### L [id number], L100.0100 #### [facility] [address] [place], [address] WBC (Bld) [#/Vol] 6.8 10*3/uL Normal 4.4-11.0 [facility] Comment on above: Performed By: #### L [id number], L100.0100 #### [facility] [address] [place], [address] Comprehensive Metabolic [facility] 09-10-2023 Albumin [Mass/Vol] 4.1 g/dL Normal 3.2-5.0 [facility] Comment on above: Performed By: #### L [id number], L100.0100 #### [facility] [address] [place], [address] Albumin/Globulin [Mass ratio] 1.6 {ratio} Normal 0.9-2.4 [facility] Comment on above: Performed By: #### L [id number], L100.0100 #### [facility] [address] [place], [address] ALK P 78 U/L Normal 45-117 [facility] Comment on above: Performed By: #### L [id number], L100.0100 #### [facility] [address] [place], [address] ALT [Catalytic activity/Vol] 20 U/L Normal 13-56 [facility] Comment on above: Performed By: #### L [id number], L100.0100 #### [facility] [address] [place], [address] AST [Catalytic activity/Vol] 10 U/L Low 15-37 [facility] Comment on above: Performed By: #### L [id number], L100.0100 #### [facility] [address] [place], [address] Bilirubin [Mass/Vol] 0.30 mg/dL Normal 0.20-1.00 [facility] Comment on above: Result Comment: For patients on eltrombopag therapy, use of Dimension [place] TBIL is not recommended. Performed By: #### L [id number], L100.0100 #### [facility] [address] [place], [address] BUN/CRE 17.7 RATIO Normal 10-20 [facility] Comment on above: Performed By: #### L [id number], L100.0100 #### [facility] [address] [place], [address] CA,Total 9.1 mg/dL Normal 8.5-10.1 [facility] Comment on above: Performed By: #### L [id number], L100.0100 #### [facility] [address] [place], [address] Chloride [Moles/Vol] 106 mmol/L Normal 98-107 [facility] Comment on above: Performed By: #### L [id number], L100.0100 #### [facility] [address] [place], [address] CO2 [Moles/Vol] 27.0 mmol/L Normal 21.0-32.0 [facility] Comment on above: Performed By: #### L [id number], L100.0100 #### [facility] [address] [place], [address] Creatinine [Mass/Vol] 0.90 mg/dL Normal 0.55-1.02 [facility] Comment on above: Result Comment: The validity of the calculated GFR GFRAA in patients over 70 years has not been determined. Clinical correlation is essential. Performed By: #### L [id number], L100.0100 #### [facility] [address] [place], [address] EST GFR - AA 81 mL/min Normal >60 [facility] Comment on above: Result Comment: Afri can Moroccan GFR Calc Performed By: #### L [id number], L100.0100 #### [facility] [address] [place], [address] GAP 6 Normal 5-15 [facility] Comment on above: Performed By: #### L [id number], L100.0100 #### [facility] [address] [place], [address] GFR/1.73 sq M.predicted among non-blacks MDRD (S/P/Bld) [Vol rate/Area] 67 mL/min/{1.73_m2} Normal >60 [facility] Comment on above: Result Comment: Non- GFR Calc Performed By: #### L [id number], L100.0100 #### [facility] [address] [place], [address] Globulin (S) [Mass/Vol] 2.6 g/dL Normal 2.2-4.2 [facility] Comment on above: Performed By: #### L [id number], L100.0100 #### [facility] [address] [place], [address] Glucose [Mass/Vol] 95 mg/dL Normal 74-106 [facility] Comment on above: Performed By: #### L [id number], L100.0100 #### [facility] [address] [place], [address] Potassium [Moles/Vol] 4.3 mmol/L Normal 3.5-5.1 [facility] Comment on above: Performed By: #### L [id number], L100.0100 #### [facility] [address] [place], [address] Sodium [Moles/Vol] 139 mmol/L Normal 136-145 [facility] Comment on above: Performed By: #### L [id number], L100.0100 #### [facility] [address] [place], [address] T PROT 6.7 g/dL Normal 6.4-8.2 [facility] Comment on above: Performed By: #### L [id number], L100.0100 #### [facility] [address] [place], [address] Urea nitrogen [Mass/Vol] 16 mg/dL Normal 7-18 [facility] Comment on above: Performed By: #### L [id number], L100.0100 #### [facility] [address] [place], [address] Absolute lymphocyte countOrd ered By: Elio [place] on 06-10-2023 Lymphocytes Auto (Unsp spec) [#/Vol] 2.35 10*3/uL 0.83-4.51 [facility] Automated lymphocyte count a s percentage of total leukocytesOrdered By: Elio [place] on 06-10-2023 Lymphocytes/100 WBC Auto (Unsp spec) 37.4 % 19-41 [facility] Basophil percentageOrdered B y: Elio [place] on 06-10-2023 Basophils/100 WBC (Bld) 0.6 % 0-1 [facility] Bilirubin [Mass/Vol] 0.40 mg/dL 0.20-1.00 [facility] Comment on above: For patients on eltr ombopag therapy, use of Dimension [place] TBIL is not recommended. Chloride [Moles/Vol] 108 mmol/L 98-107 [facility] Eosinophils/100 WBC (Bld) 2.4 % 0-5 [facility] Glucose [Mass/Vol] 105 mg/dL 74-106 [facility] Comment on above: Fasting Glucose resu lt from 100 to 125 mg/dL suggests IMPAIRED HOMEOSTASIS per A.D.A. criteria. Hemoglobin (Bld) [Mass/Vol] 14.2 g/dL 12.0-15.0 [facility] Monocytes/100 WBC (Bld) 10.0 % 0-10 [facility] Neutrophils (Bld) [#/Vol] 3.1 10*3/uL 2.0-7.7 [facility] Neutrophils/100 WBC (Bld) 49.3 % 47-70 [facility] Potassium [Moles/Vol] 4.3 mmol/L 3.5-5.1 [facility] Protein [Mass/Vol] 6.9 g/dL 6.4-8.2 [facility] Sodium [Moles/Vol] 139 mmol/L 136-145 [facility] WBC (Bld) [#/Vol] 6.3 10*3/uL 4.4-11.0 [facility] Determination of erythrocyte mean corpuscular volume (MCV)Ordered By: Elio [place] on 06-10-2023 MCV (RBC) [Entitic vol] 96.8 fL 81-99 [facility] Erythrocyte distribution wid th ratioOrdered By: Elio [place] on 06-10-2023 Erythrocyte distribution width (RBC) [Ratio] 12.6 % 11.6-14.6 [facility] Erythrocyte distribution wid th standard deviationOrdered By: Elio [place] on 06-10-2023 Erythrocyte distribution width (RBC) [Entitic vol] 44.7 fL 35.1-43.9 [facility] Hematocrit Auto (Bld) [Volum e fraction]Ordered By: Elio [place] on 06-10-2023 Hematocrit (Bld) [Volume fraction] 42.6 % 37-47 [facility] Immature granulocytes/100 WB C Auto (Bld)Ordered By: Elio [place] on 06-10-2023 Immature granulocytes/100 WBC (Bld) 0.300 % 0.0-0.9 [facility] Comment on above: IG% - Immature Granu locytes (promyelocytes, myelocytes and metamyelocytes) > 1% indicates that a LEFT SHIFT is Present. Laboratory - Chemistry and C hemistry - challengeOrdered By: Elio [place] on 06-10-2023 Albumin/Globulin [Mass ratio] 1.5 {ratio} 0.9-2.4 [facility] ALP [Catalytic activity/Vol] 74 U/L 45-117 [facility] ALT [Catalytic activity/Vol] 27 U/L 13-56 [facility] CO2 [Moles/Vol] 29.0 mmol/L 21.0-32.0 [facility] Globulin (S) [Mass/Vol] 2.8 g/dL 2.2-4.2 [facility] Urea nitrogen/Creatinine [Mass ratio] 17.8 mg/mg 10-20 [facility] - Hematology and Cell countsOrdered By: Elio [place] on 06-10-2023 MCH (RBC) [Entitic mass] 32.3 pg 27.0-32.0 [facility] MCHC (RBC) [Mass/Vol] 33.3 g/dL 32-36 [facility] Nucleated RBC/100 WBC (Bld) [Ratio] 0 % 0-5 [facility] Platelet mean volume (Bld) [Entitic vol] 10.0 fL 6.2-12.0 [facility] Platelets (Bld) [#/Vol] 264 10*3/uL 150-450 [facility] No Panel InformationOrdered By: Elio [place] on 06-10-2023 Estimated GFR (MDRD) Amer 88 mL/min >60 [facility] Comment on above: GFR Calc Estimated GFR (MDRD) Non-Af Amer 73 mL/min >60 [facility] Comment on above: Non- GFR Calc RBC Auto (Bld) [#/Vol]Ordere d By: Elio [place] on 06-10-2023 RBC (Bld) [#/Vol] 4.40 10*6/uL 4.2-5.4 [facility] Serum or plasma calcium claudia urement (mass/volume)Ordered By: Elio [place] on 06-10-2023 Calcium [Mass/Vol] 9.1 mg/dL 8.5-10.1 [facility] Serum or plasma creatinine m easurement (mass/volume)Ordered By: Elio [place] on 06-10-2023 Creatinine [Mass/Vol] 0.84 mg/dL 0.55-1.02 [facility] Comment on above: The validity of the calculated GFR & GFRAA in patients over 70 years has not been determined. Clinical correlation is essential. Serum or plasma urea nitroge n measurement (mass/volume)Ordered By: Elio [place] on 06-10-2023 Urea nitrogen [Mass/Vol] 15 mg/dL 7-18 [facility] Thin prep Papanicolaou smear with manual screeningOrdered By: Elio [place] on 06-10-2023 Thin prep Papanicolaou smear with manual screening 4.1 g/dL 3.2-5.0 [facility] Thin prep Papanicolaou smear with manual screening 20 U/L 15-37 [facility] Thin prep Papanicolaou smear with manual screening 2 5-15 [facility] Absolute lymphocyte countOrd ered By: Elio [place] on 12-10-2022 Lymphocytes Auto (Unsp spec) [#/Vol] 2.21 10*3/uL 0.83-4.51 [facility] Basophil percentageOrdered B y: Elio [place] on 12-10-2022 Basophils/100 WBC (Bld) 1.0 % 0-1 [facility] Bilirubin [Mass/Vol] 0.30 mg/dL 0.20-1.00 [facility] Comment on above: For patients on eltr ombopag therapy, use of Dimension [place] TBIL is not recommended. Chloride [Moles/Vol] 111 mmol/L 98-107 [facility] Eosinophils/100 WBC (Bld) 3.6 % 0-5 [facility] Glucose [Mass/Vol] 99 mg/dL 74-106 [facility] Neutrophils (Bld) [#/Vol] 1.9 10*3/uL 2.0-7.7 [facility] Neutrophils/100 WBC (Bld) 38.7 % 47-70 [facility] Potassium [Moles/Vol] 4.2 mmol/L 3.5-5.1 [facility] Protein [Mass/Vol] 6.7 g/dL 6.4-8.2 [facility] Sodium [Moles/Vol] 142 mmol/L 136-145 [facility] WBC (Bld) [#/Vol] 5.0 10*3/uL 4.4-11.0 [facility] Blood erythrocytes count (nu mber/volume)Ordered By: Elio [place] on 12-10-2022 RBC (Bld) [#/Vol] 4.45 10*6/uL 4.2-5.4 [facility] Blood hemoglobin measurement (mass/volume)Ordered By: Elio [place] on 12-10-2022 Hemoglobin (Bld) [Mass/Vol] 14.3 g/dL 12.0-15.0 [facility] Blood lymphocytes/100 leukoc ytesOrdered By: Elio Adams on 12-10-2022 Lymphocytes/100 WBC (Bld) 44.1 % 19-41 [facility] Blood monocytes/100 leukocyt esOrdered By: Elio Adams on 12-10-2022 Monocytes/100 WBC (Bld) 12.2 % 0-10 [facility] Blood platelet mean volumeOr dered By: Elio [place] on 12-10-2022 Platelet mean volume (Bld) [Entitic vol] 9.6 fL 6.2-12.0 [facility] Determination of erythrocyte mean corpuscular volume (MCV)Ordered By: Elio [place] on 12-10-2022 MCV (RBC) [Entitic vol] 96.2 fL 81-99 [facility] Hematocrit Auto (Bld) [Volum e fraction]Ordered By: Elio [place] on 12-10-2022 Hematocrit (Bld) [Volume fraction] 42.8 % 37-47 [facility] - Chemistry and C hemistry - challengeOrdered By: Elio [place] on 12-10-2022 ALP [Catalytic activity/Vol] 90 U/L 45-117 [facility] ALT [Catalytic activity/Vol] 17 U/L 13-56 [facility] CO2 [Moles/Vol] 27.0 mmol/L 21.0-32.0 [facility] Globulin (S) [Mass/Vol] 3.0 g/dL 2.2-4.2 [facility] Urea nitrogen/Creatinine [Mass ratio] 16.6 mg/mg 10-20 [facility] - Hematology and Cell countsOrdered By: Elio [place] on 12-10-2022 Erythrocyte distribution width (RBC) [Entitic vol] 47.6 fL 35.1-43.9 [facility] Erythrocyte distribution width (RBC) [Ratio] 13.3 % 11.6-14.6 [facility] Immature granulocytes/100 WBC (Bld) 0.400 % 0.0-0.9 [facility] Comment on above: IG% - Immature Granu locytes (promyelocytes, myelocytes and metamyelocytes) > 1% indicates that a LEFT SHIFT is Present. MCH (RBC) [Entitic mass] 32.1 pg 27.0-32.0 [facility] Nucleated RBC/100 WBC (Bld) [Ratio] 0 % 0-5 [facility] MCHC Auto (RBC) [Mass/Vol]Or dered By: Elio [place] on 12-10-2022 MCHC (RBC) [Mass/Vol] 33.4 g/dL 32-36 [facility] No Panel InformationOrdered By: Elio [place] on 12-10-2022 Estimated GFR (MDRD) Amer 81 mL/min >60 [facility] Comment on above: GFR Calc Estimated GFR (MDRD) Non-Af Amer 67 mL/min >60 [facility] Comment on above: Non- GFR Calc Platelets bldOrdered By: Delmi [place] on 12-10-2022 Platelets (Bld) [#/Vol] 302 10*3/uL 150-450 [facility] Serum or plasma albumin claudia urement (mass/volume)Ordered By: Elio [place] on 12-10-2022 Albumin [Mass/Vol] 3.7 g/dL 3.2-5.0 [facility] Serum or plasma albumin/glob ulin mass ratioOrdered By: Elio Adams on 12-10-2022 Albumin/Globulin [Mass ratio] 1.2 {ratio} 0.9-2.4 [facility] Serum or plasma calcium claudia urement (mass/volume)Ordered By: Elio [place] on 12-10-2022 Calcium [Mass/Vol] 8.8 mg/dL 8.5-10.1 [facility] Serum or plasma creatinine m easurement (mass/volume)Ordered By: Elio [place] on 12-10-2022 Creatinine [Mass/Vol] 0.90 mg/dL 0.55-1.02 [facility] Comment on above: The validity of the calculated GFR & GFRAA in patients over 70 years has not been determined. Clinical correlation is essential. Serum or plasma urea nitroge n measurement (mass/volume)Ordered By: Elio [place] on 12-10-2022 Urea nitrogen [Mass/Vol] 15 mg/dL 7-18 [facility] Thin prep Papanicolaou smear with manual screeningOrdered By: [facility]ie on 12-10-2022 Thin prep Papanicolaou smear with manual screening 10 U/L 15-37 [facility] Thin prep Papanicolaou smear with manual screening 4 5-15 [facility] Absolute lymphocyte countOrd ered By: Elio [place] on 09-09-2022 Lymphocytes Auto (Unsp spec) [#/Vol] 2.00 10*3/uL 0.83-4.51 [facility] Basophil percentageOrdered B y: Elio Adams on 09-09-2022 Basophils/100 WBC (Bld) 0.5 % 0-1 [facility] Bilirubin [Mass/Vol] 0.50 mg/dL 0.20-1.00 [facility] Comment on above: For patients on eltr ombopag therapy, use of Dimension [place] TBIL is not recommended. Chloride [Moles/Vol] 110 mmol/L 98-107 [facility] Eosinophils/100 WBC (Bld) 3.3 % 0-5 [facility] Glucose [Mass/Vol] 91 mg/dL 74-106 [facility] Neutrophils (Bld) [#/Vol] 2.8 10*3/uL 2.0-7.7 [facility] Neutrophils/100 WBC (Bld) 50.2 % 47-70 [facility] Potassium [Moles/Vol] 4.7 mmol/L 3.5-5.1 [facility] Protein [Mass/Vol] 6.5 g/dL 6.4-8.2 [facility] Sodium [Moles/Vol] 140 mmol/L 136-145 [facility] WBC (Bld) [#/Vol] 5.5 10*3/uL 4.4-11.0 [facility] Blood erythrocytes count (nu mber/volume)Ordered By: Elio Adams on 09-09-2022 RBC (Bld) [#/Vol] 4.65 10*6/uL 4.2-5.4 [facility] Blood hemoglobin measurement (mass/volume)Ordered By: Elio [place] on 09-09-2022 Hemoglobin (Bld) [Mass/Vol] 15.0 g/dL 12.0-15.0 [facility] Blood lymphocytes/100 leukoc ytesOrdered By: Elio Adams on 09-09-2022 Lymphocytes/100 WBC (Bld) 36.2 % 19-41 [facility] Blood monocytes/100 leukocyt esOrdered By: Elio Adams on 09-09-2022 Monocytes/100 WBC (Bld) 9.6 % 0-10 [facility] Blood platelet mean volumeOr dered By: Elio Adams on 09-09-2022 Platelet mean volume (Bld) [Entitic vol] 10.2 fL 6.2-12.0 [facility] Determination of erythrocyte mean corpuscular volume (MCV)Ordered By: Elio Adams on 09-09-2022 MCV (RBC) [Entitic vol] 96.6 fL 81-99 [facility] Hematocrit Auto (Bld) [Volum e fraction]Ordered By: Elio Adams on 09-09-2022 Hematocrit (Bld) [Volume fraction] 44.9 % 37-47 [facility] - Chemistry and C hemistry - challengeOrdered By: Elio [place] on 09-09-2022 ALP [Catalytic activity/Vol] 66 U/L 45-117 [facility] ALT [Catalytic activity/Vol] 15 U/L 13-56 [facility] CO2 [Moles/Vol] 29.0 mmol/L 21.0-32.0 [facility] Globulin (S) [Mass/Vol] 2.8 g/dL 2.2-4.2 [facility] Urea nitrogen/Creatinine [Mass ratio] 15.0 mg/mg 10-20 [facility] - Hematology and Cell countsOrdered By: Elio [place] on 09-09-2022 Erythrocyte distribution width (RBC) [Entitic vol] 43.1 fL 35.1-43.9 [facility] Erythrocyte distribution width (RBC) [Ratio] 12.1 % 11.6-14.6 [facility] Immature granulocytes/100 WBC (Bld) 0.200 % 0.0-0.9 [facility] Comment on above: IG% - Immature Granu locytes (promyelocytes, myelocytes and metamyelocytes) > 1% indicates that a LEFT SHIFT is Present. MCH (RBC) [Entitic mass] 32.3 pg 27.0-32.0 [facility] Nucleated RBC/100 WBC (Bld) [Ratio] 0 % 0-5 [facility] MCHC Auto (RBC) [Mass/Vol]Or dered By: Elio Adams on 09-09-2022 MCHC (RBC) [Mass/Vol] 33.4 g/dL 32-36 [facility] No Panel InformationOrdered By: Elio Adams on 09-09-2022 Estimated GFR (MDRD) Amer 78 mL/min >60 [facility] Comment on above: GFR Calc Estimated GFR (MDRD) Non-Af Amer 65 mL/min >60 [facility] Comment on above: Non- GFR Calc Platelets bldOrdered By: Delmi [place] on 09-09-2022 Platelets (Bld) [#/Vol] 252 10*3/uL 150-450 [facility] Serum or plasma albumin cluadia urement (mass/volume)Ordered By: Elio Adams on 09-09-2022 Albumin [Mass/Vol] 3.7 g/dL 3.2-5.0 [facility] Serum or plasma albumin/glob ulin mass ratioOrdered By: Elio Adams on 09-09-2022 Albumin/Globulin [Mass ratio] 1.3 {ratio} 0.9-2.4 [facility] Serum or plasma calcium claudia urement (mass/volume)Ordered By: Elio Adams on 09-09-2022 Calcium [Mass/Vol] 8.9 mg/dL 8.5-10.1 [facility] Serum or plasma creatinine m easurement (mass/volume)Ordered By: Elio Adams on 09-09-2022 Creatinine [Mass/Vol] 0.93 mg/dL 0.55-1.02 [facility] Comment on above: The validity of the calculated GFR & GFRAA in patients over 70 years has not been determined. Clinical correlation is essential. Serum or plasma urea nitroge n measurement (mass/volume)Ordered By: Elio Adams on 09-09-2022 Urea nitrogen [Mass/Vol] 14 mg/dL 7-18 [facility] Thin prep Papanicolaou smear with manual screeningOrdered By: Elio Adams on 09-09-2022 Thin prep Papanicolaou smear with manual screening 12 U/L 15-37 [facility] Thin prep Papanicolaou smear with manual screening 1 5-15 [facility] Absolute lymphocyte countOrd ered By: Dr. Adams on 06-14-2022 Lymphocytes Auto (Unsp spec) [#/Vol] 2.21 10*3/uL 0.83-4.51 [facility] Basophil percentageOrdered B y: Dr. Adams on 06-14-2022 Basophils/100 WBC (Bld) 0.8 % 0-1 [facility] Bilirubin [Mass/Vol] 0.20 mg/dL 0.20-1.00 [facility] Comment on above: For patients on eltr ombopag therapy, use of Dimension [place] TBIL is not recommended. Chloride [Moles/Vol] 112 mmol/L 98-107 [facility] Eosinophils/100 WBC (Bld) 3.3 % 0-5 [facility] Glucose [Mass/Vol] 103 mg/dL 74-106 [facility] Comment on above: Fasting Glucose resu lt from 100 to 125 mg/dL suggests IMPAIRED HOMEOSTASIS per A.D.A. criteria. Neutrophils (Bld) [#/Vol] 2.1 10*3/uL 2.0-7.7 [facility] Neutrophils/100 WBC (Bld) 42.6 % 47-70 [facility] Potassium [Moles/Vol] 3.9 mmol/L 3.5-5.1 [facility] Protein [Mass/Vol] 6.6 g/dL 6.4-8.2 [facility] Sodium [Moles/Vol] 140 mmol/L 136-145 [facility] WBC (Bld) [#/Vol] 4.9 10*3/uL 4.4-11.0 [facility] Blood erythrocytes count (nu mber/volume)Ordered By: Dr. Adams on 06-14-2022 RBC (Bld) [#/Vol] 4.31 10*6/uL 4.2-5.4 [facility] Blood hemoglobin measurement (mass/volume)Ordered By: Dr. Adams on 06-14-2022 Hemoglobin (Bld) [Mass/Vol] 14.1 g/dL 12.0-15.0 [facility] Blood lymphocytes/100 leukoc ytesOrdered By: Dr. Adams on 06-14-2022 Lymphocytes/100 WBC (Bld) 45.1 % 19-41 [facility] Blood monocytes/100 leukocyt esOrdered By: Dr. Adams on 06-14-2022 Monocytes/100 WBC (Bld) 8.0 % 0-10 [facility] Blood platelet mean volumeOr dered By: Dr. Adams on 06-14-2022 Platelet mean volume (Bld) [Entitic vol] 10.3 fL 6.2-12.0 [facility] Determination of erythrocyte mean corpuscular volume (MCV)Ordered By: Dr. Adams on 06-14-2022 MCV (RBC) [Entitic vol] 96.8 fL 81-99 [facility] Hematocrit Auto (Bld) [Volum e fraction]Ordered By: Dr. Adams on 06-14-2022 Hematocrit (Bld) [Volume fraction] 41.7 % 37-47 [facility] - Chemistry and C hemistry - challengeOrdered By: Dr. Adams on 06-14-2022 ALP [Catalytic activity/Vol] 64 U/L 45-117 [facility] ALT [Catalytic activity/Vol] 17 U/L 13-56 [facility] CO2 [Moles/Vol] 26.0 mmol/L 21.0-32.0 [facility] Globulin (S) [Mass/Vol] 2.8 g/dL 2.2-4.2 [facility] Urea nitrogen/Creatinine [Mass ratio] 18.0 mg/mg 10-20 [facility] - Hematology and Cell countsOrdered By: Dr. Adams on 06-14-2022 Erythrocyte distribution width (RBC) [Entitic vol] 44.4 fL 35.1-43.9 [facility] Erythrocyte distribution width (RBC) [Ratio] 12.4 % 11.6-14.6 [facility] Immature granulocytes/100 WBC (Bld) 0.200 % 0.0-0.9 [facility] Comment on above: IG% - Immature Granu locytes (promyelocytes, myelocytes and metamyelocytes) > 1% indicates that a LEFT SHIFT is Present. MCH (RBC) [Entitic mass] 32.7 pg 27.0-32.0 [facility] Nucleated RBC/100 WBC (Bld) [Ratio] 0 % 0-5 [facility] MCHC Auto (RBC) [Mass/Vol]Or dered By: Dr. Adams on 06-14-2022 MCHC (RBC) [Mass/Vol] 33.8 g/dL 32-36 [facility] No Panel InformationOrdered By: Dr. Adams on 06-14-2022 Estimated GFR (MDRD) Amer 83 mL/min >60 [facility] Comment on above: GFR Calc Estimated GFR (MDRD) Non-Af Amer 69 mL/min >60 [facility] Comment on above: Non- GFR Calc Platelets bldOrdered By: Dr. Adams on 06-14-2022 Platelets (Bld) [#/Vol] 263 10*3/uL 150-450 [facility] Serum or plasma albumin claudia urement (mass/volume)Ordered By: Dr. Adams on 06-14-2022 Albumin [Mass/Vol] 3.8 g/dL 3.2-5.0 [facility] Serum or plasma albumin/glob ulin mass ratioOrdered By: Dr. Adams on 06-14-2022 Albumin/Globulin [Mass ratio] 1.4 {ratio} 0.9-2.4 [facility] Serum or plasma calcium claudia urement (mass/volume)Ordered By: Dr. Adams on 06-14-2022 Calcium [Mass/Vol] 8.9 mg/dL 8.5-10.1 [facility] Serum or plasma creatinine m easurement (mass/volume)Ordered By: Dr. Adams on 06-14-2022 Creatinine [Mass/Vol] 0.89 mg/dL 0.55-1.02 [facility] Comment on above: The validity of the calculated GFR & GFRAA in patients over 70 years has not been determined. Clinical correlation is essential. Serum or plasma urea nitroge n measurement (mass/volume)Ordered By: Dr. Adams on 06-14-2022 Urea nitrogen [Mass/Vol] 16 mg/dL 7-18 [facility] Thin prep Papanicolaou smear with manual screeningOrdered By: Dr. Adams on 06-14-2022 Thin prep Papanicolaou smear with manual screening 12 U/L 15-37 [facility] Thin prep Papanicolaou smear with manual screening 2 5-15 [facility] Absolute lymphocyte counton 12-05-2021 Lymphocytes Auto (Unsp spec) [#/Vol] 1.81 10*3/uL 0.83-4.51 [facility] Work Phone: Basophil percentageon 2021 Basophils/100 WBC (Bld) 0.8 % 0-1 [facility] Work Phone: Bilirubin [Mass/Vol] 0.30 mg/dL 0.20-1.00 [facility] Work Phone: Comment on above: For patients on eltr ombopag therapy, use of Dimension [place] TBIL is not recommended. Chloride [Moles/Vol] 108 mmol/L 98-107 [facility] Work Phone: Eosinophils/100 WBC (Bld) 2.6 % 0-5 [facility] Work Phone: Glucose [Mass/Vol] 97 mg/dL 74-106 [facility] Work Phone: Neutrophils (Bld) [#/Vol] 3.7 10*3/uL 2.0-7.7 [facility] Work Phone: Neutrophils/100 WBC (Bld) 58.8 % 47-70 [facility] Work Phone: Potassium [Moles/Vol] 4.7 mmol/L 3.5-5.1 [facility] Work Phone: Protein [Mass/Vol] 7.0 g/dL 6.4-8.2 [facility] Work Phone: Sodium [Moles/Vol] 140 mmol/L 136-145 [facility] Work Phone: WBC (Bld) [#/Vol] 6.3 10*3/uL 4.4-11.0 [facility] Work Phone: Blood erythrocytes count (nu mber/volume)on 12-05-2021 RBC (Bld) [#/Vol] 4.34 10*6/uL 4.2-5.4 [facility] Work Phone: Blood hemoglobin measurement (mass/volume)on 12-05-2021 Hemoglobin (Bld) [Mass/Vol] 14.3 g/dL 12.0-15.0 [facility] Work Phone: Blood lymphocytes/100 leukoc yteson 12-05-2021 Lymphocytes/100 WBC (Bld) 28.9 % 19-41 [facility] Work Phone: Blood monocytes/100 leukocyt eson 12-05-2021 Monocytes/100 WBC (Bld) 8.6 % 0-10 [facility] Work Phone: Blood platelet mean volumeon 12-05-2021 Platelet mean volume (Bld) [Entitic vol] 10.3 fL 6.2-12.0 [facility] Work Phone: Determination of erythrocyte mean corpuscular volume (MCV)on 12-05-2021 MCV (RBC) [Entitic vol] 97.2 fL 81-99 [facility] Work Phone: Hematocrit Auto (Bld) [Volum e fraction]on 12-05-2021 Hematocrit (Bld) [Volume fraction] 42.2 % 37-47 [facility] Work Phone: Laboratory - Chemistry and C hemistry - challengeon 12-05-2021 ALP [Catalytic activity/Vol] 60 U/L 45-117 [facility] Work Phone: ALT [Catalytic activity/Vol] 19 U/L 13-56 [facility] Work Phone: CO2 [Moles/Vol] 29.0 mmol/L 21.0-32.0 [facility] Work Phone: Globulin (S) [Mass/Vol] 3.0 g/dL 2.2-4.2 [facility] Work Phone: Urea nitrogen/Creatinine [Mass ratio] 12.7 mg/mg 10-20 [facility] Work Phone: Laboratory - Hematology and Cell countson 12-05-2021 Erythrocyte distribution width (RBC) [Entitic vol] 45.3 fL 35.1-43.9 [facility] Work Phone: Erythrocyte distribution width (RBC) [Ratio] 12.6 % 11.6-14.6 [facility] Work Phone: Immature granulocytes/100 WBC (Bld) 0.300 % 0.0-0.9 [facility] Work Phone: Comment on above: IG% - Immature Granu locytes (promyelocytes, myelocytes and metamyelocytes) > 1% indicates that a LEFT SHIFT is Present. MCH (RBC) [Entitic mass] 32.9 pg 27.0-32.0 [facility] Work Phone: Nucleated RBC/100 WBC (Bld) [Ratio] 0 % 0-5 [facility] Work Phone: MCHC Auto (RBC) [Mass/Vol]on 12-05-2021 MCHC (RBC) [Mass/Vol] 33.9 g/dL 32-36 [facility] Work Phone: No Panel Informationon 12-05 Estimated GFR (MDRD) Amer 86 mL/min >60 [facility] Work Phone: Comment on above: GFR Calc Estimated GFR (MDRD) Non-Af Amer 71 mL/min >60 [facility] Work Phone: Comment on above: Non- GFR Calc Platelets bldon 12-05-2021 Platelets (Bld) [#/Vol] 261 10*3/uL 150-450 [facility] Work Phone: Serum or plasma albumin claudia urement (mass/volume)on 12-05-2021 Albumin [Mass/Vol] 4.0 g/dL 3.2-5.0 [facility] Work Phone: Serum or plasma albumin/glob ulin mass ratioon 12-05-2021 Albumin/Globulin [Mass ratio] 1.3 {ratio} 0.9-2.4 [facility] Work Phone: Serum or plasma calcium claudia urement (mass/volume)on 12-05-2021 Calcium [Mass/Vol] 9.4 mg/dL 8.5-10.1 [facility] Work Phone: Serum or plasma creatinine m easurement (mass/volume)on 12-05-2021 Creatinine [Mass/Vol] 0.86 mg/dL 0.55-1.02 [facility] Work Phone: Comment on above: The validity of the calculated GFR & GFRAA in patients over 70 years has not been determined. Clinical correlation is essential. Serum or plasma urea nitroge n measurement (mass/volume)on 12-05-2021 Urea nitrogen [Mass/Vol] 11 mg/dL 7-18 [facility] Work Phone: Thin prep Papanicolaou smear with manual screeningon 12-05-2021 Thin prep Papanicolaou smear with manual screening 12 U/L 15-37 [facility] Work Phone: Thin prep Papanicolaou smear with manual screening 3 5-15 [facility] Work Phone: Absolute lymphocyte counton 09-04-2021 Lymphocytes Auto (Unsp spec) [#/Vol] 2.16 10*3/uL 0.83-4.51 [facility] Work Phone: Basophil percentageon 2021 Basophils/100 WBC (Bld) 0.7 % 0-1 [facility] Work Phone: Bilirubin [Mass/Vol] 0.30 mg/dL 0.20-1.00 [facility] Work Phone: Comment on above: For patients on eltr ombopag therapy, use of Dimension [place] TBIL is not recommended. Chloride [Moles/Vol] 108 mmol/L 98-107 [facility] Work Phone: Eosinophils/100 WBC (Bld) 4.0 % 0-5 [facility] Work Phone: Glucose [Mass/Vol] 119 mg/dL 74-106 [facility] Work Phone: Comment on above: Fasting Glucose resu lt from 100 to 125 mg/dL suggests IMPAIRED HOMEOSTASIS per A.D.A. criteria. Neutrophils (Bld) [#/Vol] 3.1 10*3/uL 2.0-7.7 [facility] Work Phone: Neutrophils/100 WBC (Bld) 51.7 % 47-70 [facility] Work Phone: Potassium [Moles/Vol] 4.2 mmol/L 3.5-5.1 [facility] Work Phone: Protein [Mass/Vol] 6.4 g/dL 6.4-8.2 [facility] Work Phone: Sodium [Moles/Vol] 142 mmol/L 136-145 [facility] Work Phone: WBC (Bld) [#/Vol] 6.0 10*3/uL 4.4-11.0 [facility] Work Phone: Blood erythrocytes count (nu mber/volume)on 09-04-2021 RBC (Bld) [#/Vol] 4.40 10*6/uL 4.2-5.4 [facility] Work Phone: Blood hemoglobin measurement (mass/volume)on 09-04-2021 Hemoglobin (Bld) [Mass/Vol] 14.5 g/dL 12.0-15.0 [facility] Work Phone: Blood lymphocytes/100 leukoc yteson 09-04-2021 Lymphocytes/100 WBC (Bld) 35.9 % 19-41 [facility] Work Phone: Blood monocytes/100 leukocyt eson 09-04-2021 Monocytes/100 WBC (Bld) 7.5 % 0-10 [facility] Work Phone: Blood platelet mean volumeon 09-04-2021 Platelet mean volume (Bld) [Entitic vol] 9.9 fL 6.2-12.0 [facility] Work Phone: Determination of erythrocyte mean corpuscular volume (MCV)on 09-04-2021 MCV (RBC) [Entitic vol] 97.0 fL 81-99 [facility] Work Phone: Hematocrit Auto (Bld) [Volum e fraction]on 09-04-2021 Hematocrit (Bld) [Volume fraction] 42.7 % 37-47 [facility] Work Phone: Laboratory - Chemistry and C hemistry - challengeon 09-04-2021 ALP [Catalytic activity/Vol] 81 U/L 45-117 [facility] Work Phone: ALT [Catalytic activity/Vol] 17 U/L 13-56 [facility] Work Phone: CO2 [Moles/Vol] 29.0 mmol/L 21.0-32.0 [facility] Work Phone: Globulin (S) [Mass/Vol] 2.6 g/dL 2.2-4.2 [facility] Work Phone: Urea nitrogen/Creatinine [Mass ratio] 16.5 mg/mg 10-20 [facility] Work Phone: Laboratory - Hematology and Cell countson 09-04-2021 Erythrocyte distribution width (RBC) [Entitic vol] 43.3 fL 35.1-43.9 [facility] Work Phone: Erythrocyte distribution width (RBC) [Ratio] 12.1 % 11.6-14.6 [facility] Work Phone: Immature granulocytes/100 WBC (Bld) 0.200 % 0.0-0.9 [facility] Work Phone: Comment on above: IG% - Immature Granu locytes (promyelocytes, myelocytes and metamyelocytes) > 1% indicates that a LEFT SHIFT is Present. MCH (RBC) [Entitic mass] 33.0 pg 27.0-32.0 [facility] Work Phone: Nucleated RBC/100 WBC (Bld) [Ratio] 0 % 0-5 [facility] Work Phone: MCHC Auto (RBC) [Mass/Vol]on 09-04-2021 MCHC (RBC) [Mass/Vol] 34.0 g/dL 32-36 [facility] Work Phone: No Panel Informationon 09-04 Estimated GFR (MDRD) Amer 88 mL/min >60 [facility] Work Phone: Comment on above: GFR Calc Estimated GFR (MDRD) Non-Af Amer 73 mL/min >60 [facility] Work Phone: Comment on above: Non- GFR Calc Platelets bldon 09-04-2021 Platelets (Bld) [#/Vol] 256 10*3/uL 150-450 [facility] Work Phone: Serum or plasma albumin claudia urement (mass/volume)on 09-04-2021 Albumin [Mass/Vol] 3.8 g/dL 3.2-5.0 [facility] Work Phone: Serum or plasma albumin/glob ulin mass ratioon 09-04-2021 Albumin/Globulin [Mass ratio] 1.5 {ratio} 0.9-2.4 [facility] Work Phone: Serum or plasma calcium claudia urement (mass/volume)on 09-04-2021 Calcium [Mass/Vol] 8.8 mg/dL 8.5-10.1 [facility] Work Phone: Serum or plasma creatinine m easurement (mass/volume)on 09-04-2021 Creatinine [Mass/Vol] 0.85 mg/dL 0.55-1.02 [facility] Work Phone: Comment on above: The validity of the calculated GFR & GFRAA in patients over 70 years has not been determined. Clinical correlation is essential. Serum or plasma urea nitroge n measurement (mass/volume)on 09-04-2021 Urea nitrogen [Mass/Vol] 14 mg/dL 7-18 [facility] Work Phone: Thin prep Papanicolaou smear with manual screeningon 09-04-2021 Thin prep Papanicolaou smear with manual screening 9 U/L 15-37 [facility] Work Phone: Thin prep Papanicolaou smear with manual screening 5 5-15 [facility] Work Phone: Absolute lymphocyte counton 06-14-2021 Lymphocytes Auto (Unsp spec) [#/Vol] 1.89 10*3/uL 0.83-4.51 [facility] Work Phone: Basophil percentageon 2021 Basophils/100 WBC (Bld) 0.8 % 0-1 [facility] Work Phone: Bilirubin [Mass/Vol] 0.30 mg/dL 0.20-1.00 [facility] Work Phone: Comment on above: For patients on eltr ombopag therapy, use of Dimension [place] TBIL is not recommended. Chloride [Moles/Vol] 105 mmol/L 98-107 [facility] Work Phone: [phone] Eosinophils/100 WBC (Bld) 2.9 % 0-5 [facility] Work Phone: Glucose [Mass/Vol] 102 mg/dL 74-106 [facility] Work Phone: Comment on above: Fasting Glucose resu lt from 100 to 125 mg/dL suggests IMPAIRED HOMEOSTASIS per A.D.A. criteria. Neutrophils (Bld) [#/Vol] 2.2 10*3/uL 2.0-7.7 [facility] Work Phone: Neutrophils/100 WBC (Bld) 46.2 % 47-70 [facility] Work Phone: Potassium [Moles/Vol] 4.4 mmol/L 3.5-5.1 [facility] Work Phone: Protein [Mass/Vol] 6.8 g/dL 6.4-8.2 [facility] Work Phone: Sodium [Moles/Vol] 140 mmol/L 136-145 [facility] Work Phone: [phone] WBC (Bld) [#/Vol] 4.8 10*3/uL 4.4-11.0 [facility] Work Phone: [phone] Blood erythrocytes count (nu mber/volume)on 06-14-2021 RBC (Bld) [#/Vol] 4.48 10*6/uL 4.2-5.4 [facility] Work Phone: Blood hemoglobin measurement (mass/volume)on 06-14-2021 Hemoglobin (Bld) [Mass/Vol] 14.9 g/dL 12.0-15.0 [facility] Work Phone: Blood lymphocytes/100 leukoc yteson 06-14-2021 Lymphocytes/100 WBC (Bld) 39.1 % 19-41 [facility] Work Phone: Blood monocytes/100 leukocyt eson 06-14-2021 Monocytes/100 WBC (Bld) 10.8 % 0-10 [facility] Work Phone: Blood platelet mean volumeon 06-14-2021 Platelet mean volume (Bld) [Entitic vol] 10.6 fL 6.2-12.0 [facility] Work Phone: Determination of erythrocyte mean corpuscular volume (MCV)on 06-14-2021 MCV (RBC) [Entitic vol] 97.5 fL 81-99 [facility] Work Phone: Hematocrit Auto (Bld) [Volum e fraction]on 06-14-2021 Hematocrit (Bld) [Volume fraction] 43.7 % 37-47 [facility] Work Phone: Laboratory - Chemistry and C hemistry - challengeon 06-14-2021 ALP [Catalytic activity/Vol] 63 U/L 45-117 [facility] Work Phone: ALT [Catalytic activity/Vol] 19 U/L 13-56 [facility] Work Phone: CO2 [Moles/Vol] 30.0 mmol/L 21.0-32.0 [facility] Work Phone: Globulin (S) [Mass/Vol] 2.6 g/dL 2.2-4.2 [facility] Work Phone: Urea nitrogen/Creatinine [Mass ratio] 18.1 mg/mg 10-20 [facility] Work Phone: Laboratory - Hematology and Cell countson 06-14-2021 Erythrocyte distribution width (RBC) [Entitic vol] 46.6 fL 35.1-43.9 [facility] Work Phone: Erythrocyte distribution width (RBC) [Ratio] 13.0 % 11.6-14.6 [facility] Work Phone: Immature granulocytes/100 WBC (Bld) 0.200 % 0.0-0.9 [facility] Work Phone: Comment on above: IG% - Immature Granu locytes (promyelocytes, myelocytes and metamyelocytes) > 1% indicates that a LEFT SHIFT is Present. MCH (RBC) [Entitic mass] 33.3 pg 27.0-32.0 [facility] Work Phone: Nucleated RBC/100 WBC (Bld) [Ratio] 0 % 0-5 [facility] Work Phone: MCHC Auto (RBC) [Mass/Vol]on 06-14-2021 MCHC (RBC) [Mass/Vol] 34.1 g/dL 32-36 [facility] Work Phone: No Panel Informationon 06-14 Estimated GFR (MDRD) Amer 78 mL/min >60 [facility] Work Phone: Comment on above: GFR Calc Estimated GFR (MDRD) Non-Af Amer 65 mL/min >60 [facility] Work Phone: Comment on above: Non- GFR Calc Platelets bldon 06-14-2021 Platelets (Bld) [#/Vol] 263 10*3/uL 150-450 [facility] Work Phone: Serum or plasma albumin claudia urement (mass/volume)on 06-14-2021 Albumin [Mass/Vol] 4.2 g/dL 3.2-5.0 [facility] Work Phone: Serum or plasma albumin/glob ulin mass ratioon 06-14-2021 Albumin/Globulin [Mass ratio] 1.6 {ratio} 0.9-2.4 [facility] Work Phone: Serum or plasma calcium claudia urement (mass/volume)on 06-14-2021 Calcium [Mass/Vol] 9.0 mg/dL 8.5-10.1 [facility] Work Phone: Serum or plasma creatinine m easurement (mass/volume)on 06-14-2021 Creatinine [Mass/Vol] 0.94 mg/dL 0.55-1.02 [facility] Work Phone: Comment on above: The validity of the calculated GFR & GFRAA in patients over 70 years has not been determined. Clinical correlation is essential. Serum or plasma urea nitroge n measurement (mass/volume)on 06-14-2021 Urea nitrogen [Mass/Vol] 17 mg/dL 7-18 [facility] Work Phone: Thin prep Papanicolaou smear with manual screeningon 06-14-2021 Thin prep Papanicolaou smear with manual screening 11 U/L 15-37 [facility] Work Phone: Thin prep Papanicolaou smear with manual screening 5 5-15 [facility] Work Phone: CBC + DIFFon 06-09-2018 Basophils #/vol (Bld) 0.00 x10EE3/UL Normal 0.00 - 0.1 0 [facility] Comment on above: Performed By: #### 2 [id number] #### [facility],[address] [place] [address] 65351 Basophils/100 WBC (Bld) 0.7 % Normal 0.0 - 2.0 [facility] Comment on above: Performed By: #### 2 [id number] #### [facility],[address] [place] [address] 77055 CBC + DIFF Normal [facility] Comment on above: Result Comment: CBC- COMPLETE BLOOD COUNT Performed By: #### 2 [id number] #### [facility],[address] [place] [address] 66095 Eosinophils #/vol (Bld) 0.10 x10EE3/UL Normal 0.00 - 0 .50 [facility] Comment on above: Performed By: #### 2 [id number] #### [facility],[address] [place] [address] 92331 Eosinophils/100 WBC (Bld) 1.7 % Normal 0.0 - 7.0 [facility] Comment on above: Performed By: #### 2 [id number] #### [facility],[address] [place] [address] Erythrocyte distribution width Ratio (RBC) 13.4 % Normal 12.0 - 15.6 [facility] Comment on above: Performed By: #### 2 89939 #### [facility],[address] [place] [address] Hematocrit Volume Fraction (Bld) 43.5 % Normal 34.0 - 46.0 [facility] Comment on above: Performed By: #### 2 46794 #### [facility],[address] [place] [address] Hemoglobin mass conc (Bld) 14.7 g/dL Normal 12.0 - 16.0 [facility] Comment on above: Performed By: #### 2 88649 #### [facility],[address] [place] [address] Lymphocytes #/vol (Bld) 1.80 x10EE3/UL Normal 0.80 - 2 .80 [facility] Comment on above: Performed By: #### 2 [id number] #### [facility],[address] [place] [address] Lymphocytes/100 WBC (Bld) 29.6 % Normal 20.0 - 45.0 [facility] Comment on above: Performed By: #### 2 40262 #### [facility],[address] [place] [address] MANUAL DIFF N/A Normal [facility] Comment on above: Performed By: #### 2 08439 #### [facility],[address] [place] [address] MCH Entitic mass (RBC) 34 pg High 27 - 33 [facility] Comment on above: Performed By: #### 2 [id number] #### [facility],[address] [place] [address] MCHC mass conc (RBC) 34 X10 3 Normal 32 - 36 [facility] Comment on above: Performed By: #### 2 55561 #### [place] [address] MCV Entitic volume (RBC) 100 fL High 80 - 99 [facility] Comment on above: Performed By: #### 2 21667 #### [place] [address] Monocytes #/vol (Bld) 0.40 x10EE3/UL Normal 0.20 - 1.0 0 [facility] Comment on above: Performed By: #### 2 14596 #### [place] [address] MONOS % 6.9 % Normal 0.0 - 10.0 [facility] Comment on above: Performed By: #### 2 54805 #### [place] [address] Morphology Interp Keith (Bld) N/A Normal [facility] Comment on above: Performed By: #### 2 63563 #### [place] [address] Neutrophils #/vol (Bld) 3.60 x10EE3/UL Normal 1.50 - 7 .10 [facility] Comment on above: Performed By: #### 2 26088 #### [place] [address] Neutrophils/100 WBC (Bld) 61.1 % Normal 46.0 - 76.0 [facility] Comment on above: Performed By: #### 2 34966 #### [place] [address] Platelet mean volume Entitic volume (Bld) 9.5 fL Normal 6.6 - 10.5 [facility] Comment on above: Result Comment: AUTO MATED DIFFERENTIAL Performed By: #### 2 [id number] #### [place] [address],[place] [address] Platelets #/vol (Bld) 241 x10EE3/UL Normal 150 - 450 [facility] Comment on above: Performed By: #### 2 86075 #### [facility],[address] [place] [address] 34710 RBC #/vol (Bld) 4.37 x 10EE6/UL Normal 4.10 - 5.30 [facility] Comment on above: Performed By: #### 2 47311 #### [facility],[address] [place] [address] 51032 WBC #/vol (Bld) 6.0 x 10EE3/UL Normal 4.5 - 10.8 [facility] Comment on above: Performed By: #### 2 89971 #### [facility],[address] [place] [address] 73716 CMP with eGFRon 06-09-2018 Age Reported 58 years Normal [facility] Comment on above: Performed By: #### 2 83035 #### [facility],[address] [place] [address] 40666 Albumin mass conc 5.0 g/dL High 3.4 - 4.8 [facility] Comment on above: Performed By: #### 2 56924 #### [facility],[address] [place] [address] 14978 Albumin/Globulin mass ratio 2.6 {ratio} High 0.9 - 1.6 [facility] Comment on above: Performed By: #### 2 30397 #### [facility],[address] [place] [address] 17501 ALK PHOS 50 U/L Normal 38 - 126 [facility] Comment on above: Performed By: #### 2 52258 #### [facility],[address] [place] [address] 52989 ALT/SGPT 10 U/L Normal 8 - 35 [facility] Comment on above: Performed By: #### 2 06101 #### [facility],[address] [place] [address] 42272 Anion gap molar conc 11 mmol/L Normal 10 - 20 [facility] Comment on above: Performed By: #### 2 18659 #### [facility],[address] [place] [address] 14240 AST/SGOT 15 U/L Normal 13 - 39 [facility] Comment on above: Performed By: #### 2 88965 #### [facility],[address] [place] [address] 89202 B/C RATIO 12 ratio Normal 0 - 30 [facility] Comment on above: Performed By: #### 2 21415 #### [facility],[address] [place] [address] 45029 Bilirubin mass conc 0.6 mg/dL Normal 0.0 - 1.5 [facility] Comment on above: Performed By: #### 2 88004 #### [facility],[address] [place] [address] 42715 Calcium mass conc 10.2 mg/dL Normal 8.6 - 10.2 [facility] Comment on above: Performed By: #### 2 79985 #### [facility],[address] [place] [address] 43725 Chloride molar conc 103 mmol/L Normal 98 - 107 [facility] Comment on above: Performed By: #### 2 80788 #### [facility],[address] [place] [address] 56208 CO2 molar conc 31.2 mmol/L High 21.0 - 31.0 [facility] Comment on above: Performed By: #### 2 76836 #### [facility],[address] [place] [address] 10633 Creatinine mass conc 1.0 mg/dL Normal 0.6 - 1.2 [facility] Comment on above: Performed By: #### 2 87549 #### [facility],[address] [place] [address] 40379 GFR/1.73 sq M predicted among non-blacks MDRD vol rate/area (S/P/Bld) mL/min/{1.73_m2} Normal 60 - 999 [facility] Comment on above: Result Comment: ACCO RDING TO THE NATIONAL KIDNEY DISEASE EDUCATION PROGRAM(NKDE), A NORMAL eGFR IS A VALUE GREATER THAN OR EQUAL TO 60 ML/MIN/1.73 SQ METERS. CHRONIC KIDNEY DISEASE: <60mL/MIN/1.73 SQ METERS KIDNEY FAILURE: <15mL/MIN/1.73 SQ METERS THIS TEST SHOULD ONLY BE USED FOR PATIENTS 18 YEARS OF AGE AND OLDER. Performed By: #### 2 23549 #### [facility],[address] [place] [address] 02424 GFR/1.73 sq M predicted among non-blacks MDRD vol rate/area (S/P/Bld) Normal [facility] Comment on above: Result Comment: COMP REHENSIVE METABOLIC PANEL Performed By: #### 2 77536 #### [facility],[address] [place] [address] 93512 GFR/1.73 sq M predicted among non-blacks MDRD vol rate/area (S/P/Bld) 57 ML/MINUTE Low 60 - 999 [facility] Comment on above: Performed By: #### 2 [id number] #### [facility],[address] [place] [address] 46465 Globulin mass conc (S) 1.9 g/dL Normal 1.5 - 3.8 [facility] Comment on above: Performed By: #### 2 85731 #### [address] [address] Glucose mass conc 101 mg/dL Normal 74 - 106 [facility] Comment on above: Performed By: #### 2 24287 #### [address] [address] Potassium molar conc 4.0 mmol/L Normal 3.5 - 5.1 [facility] Comment on above: Performed By: #### 2 19570 #### [facility],[address] [place] [address] Protein mass conc 6.9 g/dL Normal 6.4 - 8.3 [facility] Comment on above: Performed By: #### 2 54087 #### [facility],[address] [place] [address] Sodium molar conc 141 mmol/L Normal 136 - 145 [facility] Comment on above: Performed By: #### 2 86512 #### [facility],[address] [place] [address] Urea nitrogen mass conc 12 mg/dL Normal 6 - 20 [facility] Comment on above: Performed By: #### 2 46750 #### [facility],[address] [place] [address] CBCon 02-03-2018 Basophils #/vol (Bld) 0.00 x10EE3/UL Normal 0.00 - 0.1 0 [facility] Comment on above: Performed By: #### 2 27184 #### [facility],[address] [place], [place] [id number] Basophils/100 WBC (Bld) 0.6 % Normal 0.0 - 2.0 [facility] Comment on above: Performed By: #### 2 11587 #### [facility],[address] [place] [address] CBC Normal [facility] Comment on above: Result Comment: CBC- COMPLETE BLOOD COUNT Performed By: #### 2 [id number] #### [facility],[address] [place] [address] Eosinophils #/vol (Bld) 0.10 x10EE3/UL Normal 0.00 - 0 .50 [facility] Comment on above: Performed By: #### 2 15347 #### [facility],[address] [place] [address] 95380 Eosinophils/100 WBC (Bld) 1.7 % Normal 0.0 - 7.0 [facility] Comment on above: Performed By: #### 2 11165 #### [facility],[address] [place] [address] Erythrocyte distribution width Ratio (RBC) 13.1 % Normal 12.0 - 15.6 [facility] Comment on above: Performed By: #### 2 95615 #### [facility],[address] [place] [address] Hematocrit Volume Fraction (Bld) 40.6 % Normal 34.0 - 46.0 [facility] Comment on above: Performed By: #### 2 50902 #### [facility],[address] [place] [address] Hemoglobin mass conc (Bld) 14.0 g/dL Normal 12.0 - 16.0 [facility] Comment on above: Performed By: #### 2 11045 #### [facility],[address] [place], [place] [id number] Lymphocytes #/vol (Bld) 1.70 x10EE3/UL Normal 0.80 - 2 .80 [facility] Comment on above: Performed By: #### 2 83175 #### [facility],[address] [place] [address] 38904 Lymphocytes/100 WBC (Bld) 31.8 % Normal 20.0 - 45.0 [facility] Comment on above: Performed By: #### 2 57408 #### [facility],[address] [place], [place] [id number] MANUAL DIFF N/A Normal [facility] Comment on above: Performed By: #### 2 01197 #### [facility],[address] [place] [address] 02784 MCH Entitic mass (RBC) 34 pg High 27 - 33 [facility] Comment on above: Performed By: #### 2 00024 #### [facility],[address] [place] [address] MCHC mass conc (RBC) 35 X10 3 Normal 32 - 36 [facility] Comment on above: Performed By: #### 2 68104 #### [facility],[address] [place] [address] MCV Entitic volume (RBC) 99 fL Normal 80 - 99 [facility] Comment on above: Performed By: #### 2 73559 #### [facility],[address] [place] [address] Monocytes #/vol (Bld) 0.30 x10EE3/UL Normal 0.20 - 1.0 0 [facility] Comment on above: Performed By: #### 2 87683 #### [facility],[address] [place] [address] MONOS % 6.4 % Normal 0.0 - 10.0 [facility] Comment on above: Performed By: #### 2 83304 #### [facility],[address] [place] [address] Morphology Interp Keith (Bld) N/A Normal [facility] Comment on above: Result Comment: {CD] Performed By: #### 2 82161 #### [facility],[address] [place] [address] Neutrophils #/vol (Bld) 3.20 x10EE3/UL Normal 1.50 - 7 .10 [facility] Comment on above: Performed By: #### 2 15769 #### [facility],[address] [place] [address] Neutrophils/100 WBC (Bld) 59.5 % Normal 46.0 - 76.0 [facility] Comment on above: Performed By: #### 2 33578 #### [facility],[address] [place] [address] Platelet mean volume Entitic volume (Bld) 9.1 fL Normal 6.6 - 10.5 [facility] Comment on above: Result Comment: AUTO MATED DIFFERENTIAL Performed By: #### 2 47032 #### [facility],[address] [place] [address] 30666 Platelets #/vol (Bld) 222 x10EE3/UL Normal 150 - 450 [facility] Comment on above: Performed By: #### 2 17275 #### [facility],[address] [place] [address] RBC #/vol (Bld) 4.11 x 10EE6/UL Normal 4.10 - 5.30 [facility] Comment on above: Performed By: #### 2 94085 #### [facility],[address] [place] [address] WBC #/vol (Bld) 5.4 x 10EE3/UL Normal 4.5 - 10.8 [facility] Comment on above: Performed By: #### 2 33599 #### [facility],[address] [place] [address] CMP with eGFRon 02-03-2018 Age Reported 58 years Normal [facility] Comment on above: Performed By: #### 2 16454 #### [facility],[address] [place] [address] Albumin mass conc 4.5 g/dL Normal 3.4 - 4.8 [facility] Comment on above: Performed By: #### 2 15772 #### [facility],[address] [place] [address] Albumin/Globulin mass ratio 2.6 {ratio} High 0.9 - 1.6 [facility] Comment on above: Performed By: #### 2 16655 #### [place] [address] ALK PHOS 42 U/L Normal 38 - 126 [facility] Comment on above: Performed By: #### 2 35900 #### [place] [address] ALT/SGPT 12 U/L Normal 8 - 35 [facility] Comment on above: Performed By: #### 2 79249 #### [facility],[address] [place] [address] 40336 Anion gap molar conc 9 mmol/L Low 10 - 20 [facility] Comment on above: Performed By: #### 2 09137 #### [facility],[address] [place] [address] 93522 AST/SGOT 12 U/L Low 13 - 39 [facility] Comment on above: Performed By: #### 2 14850 #### [facility],[address] [place] [address] 60783 B/C RATIO 20 ratio Normal 0 - 30 [facility] Comment on above: Performed By: #### 2 15328 #### [facility],[address] [place] [address] 29971 Bilirubin mass conc 0.3 mg/dL Normal 0.0 - 1.5 [facility] Comment on above: Performed By: #### 2 92902 #### [facility],[address] [place] [address] 45314 Calcium mass conc 9.4 mg/dL Normal 8.6 - 10.2 [facility] Comment on above: Performed By: #### 2 48867 #### [facility],[address] [place] [address] 58043 Chloride molar conc 104 mmol/L Normal 98 - 107 [facility] Comment on above: Performed By: #### 2 09302 #### [facility],[address] [place] [address] 87351 CO2 molar conc 29.6 mmol/L Normal 21.0 - 31.0 [facility] Comment on above: Performed By: #### 2 12970 #### [facility],[address] [place] [address] 84502 Creatinine mass conc 0.9 mg/dL Normal 0.6 - 1.2 [facility] Comment on above: Performed By: #### 2 30464 #### [facility],[address] [place] [address] 10558 GFR/1.73 sq M predicted among non-blacks MDRD vol rate/area (S/P/Bld) Normal [facility] Comment on above: Result Comment: COMP REHENSIVE METABOLIC PANEL Performed By: #### 2 65710 #### [facility],[address] [place] [address] 85091 GFR/1.73 sq M predicted among non-blacks MDRD vol rate/area (S/P/Bld) mL/min/{1.73_m2} Normal 60 - 999 [facility] Comment on above: Result Comment: ACCO RDING TO THE NATIONAL KIDNEY DISEASE EDUCATION PROGRAM(NKDE), A NORMAL eGFR IS A VALUE GREATER THAN OR EQUAL TO 60 ML/MIN/1.73 SQ METERS. CHRONIC KIDNEY DISEASE: <60mL/MIN/1.73 SQ METERS KIDNEY FAILURE: <15mL/MIN/1.73 SQ METERS THIS TEST SHOULD ONLY BE USED FOR PATIENTS 18 YEARS OF AGE AND OLDER. Performed By: #### 2 02337 #### [facility],[address] [place] [address] 59242 Globulin mass conc (S) 1.7 g/dL Normal 1.5 - 3.8 [facility] Comment on above: Performed By: #### 2 14286 #### [facility],[address] [place] [address] 41173 Glucose mass conc 120 mg/dL High 74 - 106 [facility] Comment on above: Performed By: #### 2 53352 #### [address] [address] Potassium molar conc 3.9 mmol/L Normal 3.5 - 5.1 [facility] Comment on above: Performed By: #### 2 24338 #### [address] [address] Protein mass conc 6.2 g/dL Low 6.4 - 8.3 [facility] Comment on above: Performed By: #### 2 38703 #### [facility],[address] [place] [address] Sodium molar conc 139 mmol/L Normal 136 - 145 [facility] Comment on above: Performed By: #### 2 09574 #### [facility],[address] [place] [address] Urea nitrogen mass conc 18 mg/dL Normal 6 - 20 [facility] Comment on above: Performed By: #### 2 74100 #### [facility],[address] [place] [address] CBCon 11-24-2017 Basophils #/vol (Bld) 0.00 x10EE3/UL Normal 0.00 - 0.1 0 [facility] Comment on above: Performed By: #### 2 70450 #### [place] [id number] Basophils/100 WBC (Bld) 0.6 % Normal 0.0 - 2.0 [facility] Comment on above: Performed By: #### 2 95644 #### [facility],[address] [place] [address] CBC Normal [facility] Comment on above: Result Comment: CBC- COMPLETE BLOOD COUNT Performed By: #### 2 28382 #### [place] [address] Eosinophils #/vol (Bld) 0.10 x10EE3/UL Normal 0.00 - 0 .50 [facility] Comment on above: Performed By: #### 2 06019 #### [place] [id number] Eosinophils/100 WBC (Bld) 1.9 % Normal 0.0 - 7.0 [facility] Comment on above: Performed By: #### 2 10053 #### [facility],[address] [place] [address] Erythrocyte distribution width Ratio (RBC) 13.0 % Normal 12.0 - 15.6 [facility] Comment on above: Performed By: #### 2 93083 #### [facility],[address] [place] [address] Hematocrit Volume Fraction (Bld) 40.7 % Normal 34.0 - 46.0 [facility] Comment on above: Performed By: #### 2 73031 #### [facility],[address] [place] [address] Hemoglobin mass conc (Bld) 14.4 g/dL Normal 12.0 - 16.0 [facility] Comment on above: Performed By: #### 2 45474 #### [facility],[address] [place] [address] Lymphocytes #/vol (Bld) 2.30 x10EE3/UL Normal 0.80 - 2 .80 [facility] Comment on above: Performed By: #### 2 11686 #### [facility],[address] [place] [address] Lymphocytes/100 WBC (Bld) 32.3 % Normal 20.0 - 45.0 [facility] Comment on above: Performed By: #### 2 43752 #### [facility],[address] [place] [address] MANUAL DIFF N/A Normal [facility] Comment on above: Performed By: #### 2 77025 #### [facility],[address] [place], [place] [id number] MCH Entitic mass (RBC) 35 pg High 27 - 33 [facility] Comment on above: Performed By: #### 2 46159 #### [facility],[address] [place] [address] 12930 MCHC mass conc (RBC) 35 X10 3 Normal 32 - 36 [facility] Comment on above: Performed By: #### 2 07741 #### [facility],[address] [place] [address] 47747 MCV Entitic volume (RBC) 98 fL Normal 80 - 99 [facility] Comment on above: Performed By: #### 2 61391 #### [facility],[address] [place] [address] 15235 Monocytes #/vol (Bld) 0.50 x10EE3/UL Normal 0.20 - 1.0 0 [facility] Comment on above: Performed By: #### 2 11732 #### [facility],[address] [place] [address] 36467 MONOS % 6.6 % Normal 0.0 - 10.0 [facility] Comment on above: Performed By: #### 2 76587 #### [facility],[address] [place] [address] 53497 Morphology Interp Keith (Bld) N/A Normal [facility] Comment on above: Result Comment: {CD] Performed By: #### 2 21697 #### [facility],[address] [place] [address] 72086 Neutrophils #/vol (Bld) 4.20 x10EE3/UL Normal 1.50 - 7 .10 [facility] Comment on above: Performed By: #### 2 79785 #### [facility],[address] [place] [address] 87535 Neutrophils/100 WBC (Bld) 58.6 % Normal 46.0 - 76.0 [facility] Comment on above: Performed By: #### 2 57039 #### [facility],[address] [place] [address] 26514 Platelet mean volume Entitic volume (Bld) 9.2 fL Normal 6.6 - 10.5 [facility] Comment on above: Result Comment: AUTO MATED DIFFERENTIAL Performed By: #### 2 95138 #### [facility],[address] [place] [address] 09297 Platelets #/vol (Bld) 231 x10EE3/UL Normal 150 - 450 [facility] Comment on above: Performed By: #### 2 17368 #### [facility],[address] [place] [address] RBC #/vol (Bld) 4.14 x 10EE6/UL Normal 4.10 - 5.30 [facility] Comment on above: Performed By: #### 2 09454 #### [facility],[address] [place] [address] WBC #/vol (Bld) 7.1 x 10EE3/UL Normal 4.5 - 10.8 [facility] Comment on above: Performed By: #### 2 40666 #### [facility],[address] [place] [address] CMP with eGFRon 11-24-2017 Age Reported 57 years Normal [facility] Comment on above: Performed By: #### 2 80320 #### [facility],[address] [place] [address] Albumin mass conc 4.7 g/dL Normal 3.4 - 4.8 [facility] Comment on above: Performed By: #### 2 79942 #### [facility],[address] [place] [address] Albumin/Globulin mass ratio 2.2 {ratio} High 0.9 - 1.6 [facility] Comment on above: Performed By: #### 2 47540 #### [facility],[address] [place] [address] ALK PHOS 40 U/L Normal 38 - 126 [facility] Comment on above: Performed By: #### 2 68822 #### [place] [address] ALT/SGPT 13 U/L Normal 8 - 35 [facility] Comment on above: Performed By: #### 2 53639 #### [facility],[address],[place] [address] Anion gap molar conc 10 mmol/L Normal 10 - 20 [facility] Comment on above: Performed By: #### 2 29141 #### [facility],[address] [place] [address] 35915 AST/SGOT 15 U/L Normal 13 - 39 [facility] Comment on above: Performed By: #### 2 39443 #### [facility],[address] [place] [address] 75171 B/C RATIO 11 ratio Normal 0 - 30 [facility] Comment on above: Performed By: #### 2 77090 #### [facility],[address] [place] [address] 58346 Bilirubin mass conc 0.6 mg/dL Normal 0.0 - 1.5 [facility] Comment on above: Performed By: #### 2 01467 #### [facility],[address] [place] [address] 25951 Calcium mass conc 9.8 mg/dL Normal 8.6 - 10.2 [facility] Comment on above: Performed By: #### 2 35630 #### [facility],[address] [place] [address] 85182 Chloride molar conc 104 mmol/L Normal 98 - 107 [facility] Comment on above: Performed By: #### 2 65969 #### [facility],[address] [place] [address] 50196 CO2 molar conc 30.3 mmol/L Normal 21.0 - 31.0 [facility] Comment on above: Performed By: #### 2 24206 #### [facility],[address] [place] [address] 87980 Creatinine mass conc 0.9 mg/dL Normal 0.6 - 1.2 [facility] Comment on above: Performed By: #### 2 45343 #### [facility],[address] [place] [address] 87360 GFR/1.73 sq M predicted among non-blacks MDRD vol rate/area (S/P/Bld) Normal [facility] Comment on above: Result Comment: COMP REHENSIVE METABOLIC PANEL Performed By: #### 2 60135 #### [address] [address] GFR/1.73 sq M predicted among non-blacks MDRD vol rate/area (S/P/Bld) mL/min/{1.73_m2} Normal 60 - 999 [facility] Comment on above: Result Comment: ACCO RDING TO THE NATIONAL KIDNEY DISEASE EDUCATION PROGRAM(NKDE), A NORMAL eGFR IS A VALUE GREATER THAN OR EQUAL TO 60 ML/MIN/1.73 SQ METERS. CHRONIC KIDNEY DISEASE: <60mL/MIN/1.73 SQ METERS KIDNEY FAILURE: <15mL/MIN/1.73 SQ METERS THIS TEST SHOULD ONLY BE USED FOR PATIENTS 18 YEARS OF AGE AND OLDER. Performed By: #### 2 54924 #### [address] [address] Globulin mass conc (S) 2.1 g/dL Normal 1.5 - 3.8 [facility] Comment on above: Performed By: #### 2 49445 #### [address] [address] Glucose mass conc 85 mg/dL Normal 74 - 106 [facility] Comment on above: Performed By: #### 2 08468 #### [address] [address] Potassium molar conc 3.9 mmol/L Normal 3.5 - 5.1 [facility] Comment on above: Performed By: #### 2 04981 #### [address] [address] Protein mass conc 6.8 g/dL Normal 6.4 - 8.3 [facility] Comment on above: Performed By: #### 2 01003 #### [address] [address] Sodium molar conc 140 mmol/L Normal 136 - 145 [facility] Comment on above: Performed By: #### 2 73994 #### [facility],[address] [place] [address] 40157 Urea nitrogen mass conc 10 mg/dL Normal 6 - 20 [facility] Comment on above: Performed By: #### 2 58706 #### [facility],[address] [place] [address] 69587 CNCOon 10-10-2017 [facility] HNO ID: [id number] thor: Mammography CoordinatorService: (none)Author Type: PhysicianType: LetterFiled: 10/13/2017 11:33 PMNote Text:October 10, 2017 PID: [id number] K. [id number] [address]Ejxp Ms. Aguilar,We are pleased to inform you that the results of your recent breastimaging exam on 10/10/2017 are normal.Early detection of cancer is very important. We also understandrecommendations regarding breast cancer screening are controversial.Please discuss with your primary care provider which strategy is best foryou and whether a mammogram is right for you.Your imaging studies and [facility] and are available for yourcontinuing care.Thank you for allowing us to help in meeting your health care needs.Sincerely,Dr. PabononInterpreting RadiologistThe [facility] (Normal over 40) Normal [facility] SCREENINGon 10-10-2017 [facility] SCREENING * * *Final Report* * *DATE OF EXAM: Oct 10 2017 1:08PM [facility] 0581 - [facility] SCREENING / REASON: multiple diagnoses * * * * Physician Interpretation * * * *RESULT: #[id number] - [facility] SCREENINGBILATERAL DIGITAL SCREENING MAMMOGRAM WITH CAD: 10/10/2017HISTORY: Multiple Diagnoses /Screening Mammogram - patient reports NO symptoms.RESULT:TECHNIQUE : The study was acquired using full field digital technology and interpreted from soft copy.Current study was also evaluated with a Computer Aided Detection (CAD).Comparison is made to exams dated: 10/09/2016 mammogram, 06/15/2015 mammogram, and 06/09/2014 mammogram - [facility].There are scattered fibroglandular elements in both breasts.There are benign calcifications in both breasts. There also are post operative findings in both breasts. Additionally, there is a biopsy clip in the right breast.No significant masses, calcifications, or other findings are seen in either breast.There has been no significant interval change.IMPRESSION: BENIGN FINDINGThere is no mammographic evidence of malignancy.A 1 year screening mammogram is recommended.Arabella Bowman/anju:10/10/2017 17:35:53Imaging Technologist: Gabby CALVIN (R)), [facility]ilionletter sent: Normal over 40Mammogram BI-RADS: 2 Benign findingTranscriptionist: AnjuTranscribyoselin Date/Time: Oct 10 2017 12:59PDictated by : ARABELLA SANCHEZ MDThis examination was interpreted and the report reviewed and electronically signed by: ARABELLA SANCHEZ MD on Oct 10 2017 5:35PM [id number] Normal [facility] CBCon 08-29-2017 Basophils #/vol (Bld) 0.00 x10EE3/UL Normal 0.00 - 0.1 0 [facility] Comment on above: Performed By: #### 2 75237 #### [facility],[address] [place] [address] 93134 Basophils/100 WBC (Bld) 0.5 % Normal 0.0 - 2.0 [facility] Comment on above: Performed By: #### 2 00181 #### [address] [address] CBC Normal [facility] Comment on above: Result Comment: CBC- COMPLETE BLOOD COUNT Performed By: #### 2 49571 #### [facility],[address] [place] [address] 98869 Eosinophils #/vol (Bld) 0.10 x10EE3/UL Normal 0.00 - 0 .50 [facility] Comment on above: Performed By: #### 2 43569 #### [place] [address] Eosinophils/100 WBC (Bld) 1.9 % Normal 0.0 - 7.0 [facility] Comment on above: Performed By: #### 2 93787 #### [place] [address] Erythrocyte distribution width Ratio (RBC) 13.3 % Normal 12.0 - 15.6 [facility] Comment on above: Performed By: #### 2 78929 #### [place] [address] Hematocrit Volume Fraction (Bld) 38.6 % Normal 34.0 - 46.0 [facility] Comment on above: Performed By: #### 2 03759 #### [place] [address] Hemoglobin mass conc (Bld) 13.7 g/dL Normal 12.0 - 16.0 [facility] Comment on above: Performed By: #### 2 12845 #### [place] [address] Lymphocytes #/vol (Bld) 2.20 x10EE3/UL Normal 0.80 - 2 .80 [facility] Comment on above: Performed By: #### 2 88955 #### [place] [address] Lymphocytes/100 WBC (Bld) 37.1 % Normal 20.0 - 45.0 [facility] Comment on above: Performed By: #### 2 56275 #### [place] [address] MANUAL DIFF N/A Normal [facility] Comment on above: Performed By: #### 2 74119 #### [place] [address] MCH Entitic mass (RBC) 34 pg High 27 - 33 [facility] Comment on above: Performed By: #### 2 05183 #### [facility],[address] [place] [address] MCHC mass conc (RBC) 36 X10 3 Normal 32 - 36 [facility] Comment on above: Performed By: #### 2 [id number] #### [facility],[address] [place] [address] MCV Entitic volume (RBC) 97 fL Normal 80 - 99 [facility] Comment on above: Performed By: #### 2 [id number] #### [facility],[address] [place] [address] Monocytes #/vol (Bld) 0.30 x10EE3/UL Normal 0.20 - 1.0 0 [facility] Comment on above: Performed By: #### 2 79531 #### [place] [address] MONOS % 5.7 % Normal 0.0 - 10.0 [facility] Comment on above: Performed By: #### 2 95569 #### [facility],[address] [place] [address] Morphology Interp Keith (Bld) N/A Normal [facility] Comment on above: Result Comment: {CD] Performed By: #### 2 67850 #### [place] [address] Neutrophils #/vol (Bld) 3.30 x10EE3/UL Normal 1.50 - 7 .10 [facility] Comment on above: Performed By: #### 2 25791 #### [place] [address] Neutrophils/100 WBC (Bld) 54.8 % Normal 46.0 - 76.0 [facility] Comment on above: Performed By: #### 2 19545 #### [facility],[address],[place] [address] Platelet mean volume Entitic volume (Bld) 9.7 fL Normal 6.6 - 10.5 [facility] Comment on above: Result Comment: AUTO MATED DIFFERENTIAL Performed By: #### 2 45674 #### [facility],[address] [place] [address] 87869 Platelets #/vol (Bld) 208 x10EE3/UL Normal 150 - 450 [facility] Comment on above: Performed By: #### 2 81171 #### [facility],[address] [place] [address] 27353 RBC #/vol (Bld) 3.99 x 10EE6/UL Low 4.10 - 5.30 [facility] Comment on above: Performed By: #### 2 50223 #### [facility],[address] [place] [address] 51461 WBC #/vol (Bld) 5.9 x 10EE3/UL Normal 4.5 - 10.8 [facility] Comment on above: Performed By: #### 2 72191 #### [facility],[address] [place] [address] 69733 CMP with eGFRon 08-29-2017 Age Reported 57 years Normal [facility] Comment on above: Performed By: #### 2 38432 #### [facility],[address] [place] [address] 39926 Albumin mass conc 4.4 g/dL Normal 3.4 - 4.8 [facility] Comment on above: Performed By: #### 2 62960 #### [facility],[address] [place] [address] 91532 Albumin/Globulin mass ratio 2.2 {ratio} High 0.9 - 1.6 [facility] Comment on above: Performed By: #### 2 05426 #### [facility],[address] [place] [address] 24974 ALK PHOS 45 U/L Normal 38 - 126 [facility] Comment on above: Performed By: #### 2 08146 #### [facility],[address] [place] [address] 92759 ALT/SGPT 10 U/L Normal 8 - 35 [facility] Comment on above: Performed By: #### 2 07703 #### [facility],[address] [place] [address]361 Anion gap molar conc 11 mmol/L Normal 10 - 20 [facility] Comment on above: Performed By: #### 2 07301 #### [facility],[address] [place] [address] 57107 AST/SGOT 14 U/L Normal 13 - 39 [facility] Comment on above: Performed By: #### 2 62288 #### [facility],[address] [place] [address] 61325 B/C RATIO 10 ratio Normal 0 - 30 [facility] Comment on above: Performed By: #### 2 49062 #### [facility],[address] [place] [address] 62831 Bilirubin mass conc 0.4 mg/dL Normal 0.0 - 1.5 [facility] Comment on above: Performed By: #### 2 96048 #### [facility],[address] [place] [address] 55405 Calcium mass conc 9.7 mg/dL Normal 8.6 - 10.2 [facility] Comment on above: Performed By: #### 2 37638 #### [facility],[address] [place] [address] 44844 Chloride molar conc 105 mmol/L Normal 98 - 107 [facility] Comment on above: Performed By: #### 2 79035 #### [facility],[address] [place] [address] 16056 CO2 molar conc 29.2 mmol/L Normal 21.0 - 31.0 [facility] Comment on above: Performed By: #### 2 11735 #### [facility],[address] [place] [address] 80803 Creatinine mass conc 0.9 mg/dL Normal 0.6 - 1.2 [facility] Comment on above: Performed By: #### 2 38808 #### [facility],[address] [place] [address] 13419 GFR/1.73 sq M predicted among non-blacks MDRD vol rate/area (S/P/Bld) mL/min/{1.73_m2} Normal 60 - 999 [facility] Comment on above: Performed By: #### 2 36104 #### [facility],[address] [place] [address] Result Comment: ACCO RDING TO THE NATIONAL KIDNEY DISEASE EDUCATION PROGRAM(NKDE), A NORMAL eGFR IS A VALUE GREATER THAN OR EQUAL TO 60 ML/MIN/1.73 SQ METERS. CHRONIC KIDNEY DISEASE: <60mL/MIN/1.73 SQ METERS KIDNEY FAILURE: <15mL/MIN/1.73 SQ METERS THIS TEST SHOULD ONLY BE USED FOR PATIENTS 18 YEARS OF AGE AND OLDER. GFR/1.73 sq M predicted among non-blacks MDRD vol rate/area (S/P/Bld) Normal [facility] Comment on above: Result Comment: COMP REHENSIVE METABOLIC PANEL Performed By: #### 2 00026 #### [facility],[address] [place] [address] 08804 Globulin mass conc (S) 2.0 g/dL Normal 1.5 - 3.8 [facility] Comment on above: Performed By: #### 2 00953 #### [facility],[address] [place] [address] 12483 Glucose mass conc 82 mg/dL Normal 74 - 106 [facility] Comment on above: Performed By: #### 2 61075 #### [facility],[address] [place] [address] 17181 Potassium molar conc 4.1 mmol/L Normal 3.5 - 5.1 [facility] Comment on above: Performed By: #### 2 82639 #### [facility],[address] [place] [address] 45656 Protein mass conc 6.4 g/dL Normal 6.4 - 8.3 [facility] Comment on above: Performed By: #### 2 93967 #### [facility],[address] [place] [address] 11949 Sodium molar conc 141 mmol/L Normal 136 - 145 [facility] Comment on above: Performed By: #### 2 32032 #### [facility],[address] [place] [address] 74949 Urea nitrogen mass conc 9 mg/dL Normal 6 - 20 [facility] Comment on above: Performed By: #### 2 34821 #### [facility],[address] [place] [address] 37867 CNOVon 06-18-2017 CNOV Office Visit (BRCRMN) JENNIE AGUILAR ([id number]) 1960 [facility] Provider Department06/18/17 10:20 AM ANNA MORENO BRMN During your visit today, we recorded the following information about you:Carmine Flowers Ma 06/18/2017 10:01 AM Signed General Breast Health Recommendations A healthy body helps promote healthy breasts. If you smoke, please consider asmoking cessation program. If you do not exercise, please consider starting anexercise program if you are able to, even if it is just walking in yourneighborhood. Research shows that obesity, especially post-menopausal obesity,is a risk factor for breast cancer. Obtaining calcium in your diet or taking acalcium supplement that contains vitamin D is good for your bones. There isevolving evidence that Vitamin D supplementation may also help to decreasebreast cancer risk. If you are post-menopausal and are bothered by hot flashesand still have a uterus, combined estrogen-progesterone preparations canincrease your risk of breast cancer if taken for longer than five years.Alcohol is also an under-recognized risk factor. Every drink you have dailyincreases your breast cancer risk by 10%. Mammograms save lives. Have an annual mammogram annually beginning at age 40. Continue annual mammograms as long as you remain in good health.Breast self-exam, performed on day 7 of your menstrual cycle, can also be veryhelpful. Know your breasts and report changes to your health care provider orbreast specialist.Clinical breast exams by your primary care provider or breast specialist arerecommended annually every 1-3 years for women over the age of 20 and annuallyafter the age of 40. Increased frequency of the clinical exam may berecommended for women at increased risk of breast cancer. Risk factors for breast cancer:ANDquot; Being a womanANDquot; Family history of breast cancerANDquot; Early menarche (onset of menses) prior to age 13ANDquot; Nulliparity (never had children)ANDquot; First child after age 30ANDquot; Late menopause (stopping of periods) after age 55ANDquot; History of breast biopsy that showed atypical cells (ADH, ALH, LCIS, FEA)ANDquot; Presence of a genetic mutation (BRCA1, BRCA2, PTEN, P53, CDH1)ANDquot; History of chest wall irradiation (such as with Hodgkin's Lymphoma)prior to age 30ANDquot; Personal history of breast cancerANDquot; Post-menopausal ObesityANDquot; Combined hormone therapy (estrogen and progesterone) for greater than 5yearsANDquot; Alcohol consumption of greater than 7 alcohol-containing drinks per weekANDquot; Breast density If you have a family history of breast or ovarian cancer, review this withyour primary care provider or breast specialist to see if a referral forgenetic counseling is recommended. 5-10% of breast cancers and up to 15% ofovarian cancers are linked to a genetic mutation. Signs of hereditary breastcancer syndrome include breast cancer that occurs under the age of 50, ovariancancer at any age, male breast cancer, multiple family members affected withbreast cancer, and a history of Ashkenazi Sabianism ancestry. Breast pain is very common and usually is not a sign of cancer, but should beevaluated by a breast specialist. For comfort, simply reducing caffeine(coffee, tea, chocolate, energy drinks, sodas) in your diet can provide relief. A properly fitted bra can also be helpful in reducing breast pain. If thosetwo measures do not provide relief, taking Evening Lafitte Oil 1000mg capsulestwice a day for a short period of time (three to four months) may be helpful. Many women wonder about their breast density. Dense breast tissue is, in andof itself, a relatively common condition which could hide abnormalities in ascreening mammogram. This information is not provided to cause undue concern;rather, it is to raise your awareness and promote discussion with your healthcare provider regarding the presence of dense breast tissue in addition toother risk factors.If you would like to compliment one of our caregivers you encountered today,you may do so at [email or web address] .[employer]. Thank you !Carmine Flowers Ma 06/18/2017 10:01 AM SignedLast mammogram on: 10/09/2016Results: see reportIs the patient active on Crowd Casthart YesElectronically Signed By: Carmine Flowers Ma In Department: BREAST CENTERREVIEW OF PATIENT HISTORY: Obstetric History T0 L0 SAB0 TAB0 Ectopic0 Multiple0 Live Births0 Comment: Menarchy age 15AFB 19LMP 06/2013FAMILY HISTORYProblem Relation Age of Onset- Prostate Cancer Father- Cancer Maternal Grandfather lymphoma- Breast Cancer Maternal Grandmother- Developmental problem Mother- Developmental problem Father- Colon Cancer Maternal Aunt- Ampullary cancer [Other] [OTHER] Mother 86 Also mucinous tumor of pancreas- Cancer Mother See abovePAST MEDICAL HISTORYDiagnosis Date- Fibromyalgia- Rheumatoid arthritis(714.0) (HCC)PAST SURGICAL HISTORYProcedure Laterality Date- APPENDECTOMY HX 1999- OOPHORECTOMY, PART/TOTAL UNILAT/BILAT 1999- PAST SURGICAL HISTORY OF 04/05/2013 bilateral Needle localized excisional biopsy by Dr. 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 for six month follow up.The patient denies any breast masses, pain, skin changes, or nipple discharge.She is still smoking 1ppd. She has not met her deductible for this year.In 03/09 she had a right core biopsy which showed fibrocystic change andfibrosis. 03/09 she had bilateral stereotactic biopsies that showed columnarcell change with mucin. 04/09 she had bilateral lumpectomies which showedcolumnar cell change with mucin bilaterally, but on the left side, had focalADH. On her last screening mammogram 06/09/14, she was noted to have newcalcifications in the right upper outer breast. 07/08 right stereotactic biopsyshowed cysts with mucin and calcified debris. 07/11/14 MRI showed asymmetricparenchymal enhancement right greater than left and 08/08 right MRI guidedbiopsy showed fibrocystic change. 10/08 she had a resection in the right upperouter breast which showed an intraductal papilloma and fibrocystic change.She is on methotrexate and folic acid for her RA.Her vitamin D level was No results found for this basename: vitd25. She takesVitamin D 2000U units .PERSONAL BREAST HISTORY:Past breast history (prior to this encounter) is as follows:Breast biopsy: Yes, as aboveBreast cysts: NoBreast surgery: Yes, as aboveBreast cancer: NoCANCER SURVEILLANCE:Mammograms: Yes / as aboveBreast MRI: 10/09/16 negativeColonoscopy: Yes / 2009 showing a polyp per pt reportBMD: Yes / 1999 per pt report - normal ; 06/11 osteopenia (per [place])RISK FACTORS FOR BREAST CANCER:Age at the onset of menses: 15 years of age. P: 3Age at the of first child: 19 years of age.She breast fed for 1 month totalAge at menopause: 53 years of age.Post-menopausal hormone therapy: NoShe has her uterus and one ovaryChest Irradiation: NoPostmenopausal obesity: NoMammographic density: There are scattered fibroglandular densitiesPersonal History of Atypical Breast Biopsy: Yes ADHAlcohol use: RarePAST MEDICAL HISTORY:PAST MEDICAL HISTORYDiagnosis Date- Fibromyalgia- Rheumatoid arthritis(714.0) (HCC)Patient specifically denies history of: DVT, PE, Migraine headaches, Abnormaluterine bleeding , Abnormal uterine biopsies and Osteoporosis.PAST SURGICAL HISTORY:PAST SURGICAL HISTORYProcedure Laterality Date- APPENDECTOMY HX 1999- OOPHORECTOMY, PART/TOTAL UNILAT/BILAT 1999- PAST SURGICAL HISTORY OF 04/05/2013 bilateral Needle localized excisional biopsy by Dr. Chris- PAST SURGICAL HISTORY OF 10/04/2014 Needle localization and excision of right breast calcifications by festSOCIAL HISTORY:Social HistorySubstance Use Topics- Smoking status: Current Every Day Smoker Packs/day: 1.00 Years: 36.00 Types: Cigarettes Start date: 01/28/1978- Smokeless tobacco: Never Used- Alcohol use Yes Comment: HOLIDAYSCaffeine intake: 4 / dayExercise: NeverFAMILY HISTORY:Family history of breast cancer: MGM at 62Family history of ovarian cancer: NoneAshkenazi Ancestry:noHas Patient had Genetic Testing? NoHave any Family Members had Genetic Testing? NoOther Cancer: Mother had bile duct cancer and colon cancer- There is no family history of prostate, uterine, pancreatic, gastric, brain,renal cell or thyroid cancer.- There is no family history of melanoma, sarcoma or leukemia.Osteoporosis: MotherStroke: NoneBlood Clot: NoneHeart attack: NoneThyroid Nodule or Goiter: NoneAutism: NoneFAMILY HISTORYProblem Relation Age of Onset- Prostate Cancer Father- Cancer Maternal Grandfather lymphoma- Breast Cancer Maternal Grandmother- Developmental problem Mother- Developmental problem Father- Colon Cancer Maternal Aunt- Ampullary cancer [Other] [OTHER] Mother 86 Also mucinous tumor of pancreas- Cancer Mother See aboveMEDICATIONS:METHOTRE XATE SODIUM (METHOTREXATE, ANTI-RHEUMATIC, ORAL) Take by mouth.Patient takes 4 pills at 6 PM and then 3 pills at bedtime every / day a week.LEUCOVORIN CALCIUM ORAL Take 15 mg by mouth. Patient takes one pill a week.folic acid 1 mg tablet Take 1 mg by mouth once daily.Cholecalciferol, Vitamin D3, 1,000 unit cap Take 2,000 Units by mouth oncedaily.Evening Lafitte Oil 500 mg cap Take by mouth once daily.DULoxetine (CYMBALTA) 30 mg capsule Take 30 mg by mouth once daily.traZODone (DESYREL) 50 mg tablet Take 50 mg by mouth as needed. for sleeptraMADol (ULTRAM) 50 mg tablet Take 50 mg by mouth every 6 hours as needed.ibuprofen (ADVIL) 200 mg tablet Take 600 mg by mouth every 8 hours as needed.PREDNISONE 10 mg tablet Takes with flare up of painMELOXICAM 15 mg tablet 7.5 mg as needed.HYDROXYCHLOROQUINE 200 mg tablet 400 mg once daily.ALLERGIES: ALLERGIESNo Known AllergiesREVIEW OF SYSTEMS:The patient specifically denies unintentional weight loss, night sweats,changes in hearing, chest pain, shortness of breath, cough, heartburn, urinaryincontinence, vaginal dryness, decreased libido, unusual bony pains or severeheadaches. She does have some hot flashes and insomnia, but they are muchimproved.PHYSICAL EXAM:LMP 06/24/2013General: well-nourished, healthy, female, alert and oriented x 3, calmSkin: warm, dry, skin color, texture, turgor normalHead/Eyes: normocephalic, atraumatic and anictericBreasts and Regional Lymph Nodes: The Patient was examined in the upright andsupine positions. There is no concerning supraclavicular, infraclavicular oraxillary lymphadenopathy. The breasts are symmetrical in appearance withoutvisible skin or nipple changes. There are no dominant breast masses on theright or nipple discharge bilaterally. On the left side at 10pm 7.5cmfn thereis a 3mm cystic density in the center of her lumpectomy scar (oil cyst 16).The breasts were non-tender. There was mild to moderate fibrocystic changethroughout.IMAGING: Deferred. There are scattered fibroglandular densities.IMPRESSION/PLAN :Jennie Aguilar is a 57 year old year old female with Fibrocystic Change andIncreased Risk for Breast Cancer due to ADH and Tobacco Use DisorderThere is no evidence of malignancy. The patient was reassured as to the benignnature of her clinical findings. Her lifetime risk per the TC model is 26 %.She meets ACS criteria for screening breast MRI and will be followed twiceyearly with clinical exams as well as annual digital mammography alternatingwith screening breast MRI. She does have a high deductible health plan, andthis will be deferred unless she meets her deductible.Genetics referral made: no, NAChemoprevention discussion: She is not a candidate for SERM chemoprevention aslong as she is smoking. She does have RA and some hot flashes.Chemoprevention was discussed at length with the patient. Two medications areFDA approved for breast cancer risk reduction in the post-menopausal woman,tamoxifen and raloxifene. Both are selective estrogen receptor modulatorswhich stimulate the estrogen receptors in some tissues and block them inothers. In the NSABP STAR Trial, they were compared, both showing similarbreast cancer risk reduction (40-50%). While tamoxifen was associated with a1-3% risk of uterine cancer and a 2.1% risk of blood clots, raloxifene was notassociated with an increased risk of uterine cancer and was associated with alower risk of blood clots, at 1.6%. In larger meta-analyses studies, the riskof blood clots was felt to be closer to 1%. She understands that common sideeffects include hot flashes, night sweats and vaginal dryness or discharge.She also understands that another option for prevention in the post-menopausalwoman which is recommended by ASCO but not yet FDA approved are aromataseinhibitors such as letrozole or aromasin, which may reduce the risk of breastcancer by 55-65%, are not associated with an increased risk of uterine canceror blood clots, but can be associated with a 2-7% risk of bone density loss.Common side effects include hot flashes, night sweats, vaginal dryness andarthralgias.She was given an informational brochure and Exemestane will be escripted. A3year course will be planned given her cardiac risk factor - smoking.The most important thing she could do for her overall health would be to stopsmoking. This would also reduce her risk for osteoporosis. She is workingwith her PCP and will try Chantix again.The patient is advised to exercise regularly, achieve/maintain ideal bodyweight, and to limit alcohol consumption to less than 7 drinks weekly forbreast cancer risk reduction and overall health.She will return for her mammogram in 10/11 and I will see her in 02/10 to seehow she is doing on the Exemestane (they winter in [place]). She will askher Bed Machine Operator for a vitamin D level as I am out of network. She willcall me in the interim should she have any questions or concerns.Anna Moreno, [facility]:Arabella Gibbons MD (DrC)[address] [place] [id number]: [phone]: [phone] Provider: SELF [200]Allergies As of Date: 06/18/2017(No Known Allergies)Date Reviewed: 06/18/2017Reviewed by: Carmine Flowers Ma - Fully AssessedReason for Visit: 6 Month Exam [189]Primary Visit Diagnosis:Bilateral fibrocystic breast changes [N60.11, N60.12] Other Visit Diagnoses:Family history of breast cancer [Z80.3] Atypical ductal hyperplasia of left breast [N60.92] Tobacco use disorder [F17.200]Order(s):[facility] SCREEN[facility] [[id number]] Order #: [id number] FUTURE exemestane (AROMASIN) 25 mg tabletTake 1 tablet by mouth once daily. after a meal.Disp: 90 tabletRfl: 3Prescriptions as of 06/18/2017 Sig: METHOTREXATE (ANTI-RHEUMATIC)* Take by mouth. Patient takes* LEUCOVORIN CALCIUM ORAL Take 15 mg by mouth. Patient * FOLIC ACID 1 MG TABLET Take 1 mg by mouth once daily. CHOLECALCIFEROL (VITAMIN D3) * Take 2,000 Units by mouth onc* EVENING PRIMROSE OIL 500 MG C* Take by mouth once daily. DULOXETINE 30 MG CAPSULE,MICKIE* Take 30 mg by mouth once víctor* TRAZODONE 50 MG TABLET Take 50 mg by mouth as needed* TRAMADOL 50 MG TABLET Take 50 mg by mouth every 6 h* IBUPROFEN 200 MG TABLET Take 600 mg by mouth every 8 * PREDNISONE 10 MG TABLET Takes with flare up of pain MELOXICAM 15 MG TABLET 7.5 mg as needed. HYDROXYCHLOROQUINE 200 MG TAB* 400 mg once daily. EXEMESTANE 25 MG TABLET Take 1 tablet by mouth once d*Medication notes this encounter EVENING PRIMROSE OIL 500 MG CAPSULE >> Carmine Castfredi Flynn 06/18/2017 10:09 AM >> LIONEL FLYNN PRIETOSamantha FriJun 18, 2017 10:09 AM Not taking. DULOXETINE 30 MG CAPSULE,DELAYED RELEASE >> Carmine Castfredi Flynn 06/18/2017 10:09 AM >> LIONEL FLYNN PRIETOSamantha FriJun 18, 2017 10:09 AM Not taking. >> Carmine Flowers Ma 06/18/2017 10:09 AM >> LIONEL FLYNN PRIETOSamantha FriJun 18, 2017 10:09 AM Taking. PREDNISONE 10 MG TABLET >> Prietosamantha Flowers Ma 06/18/2017 10:10 AM >> LIONEL FLYNN PRIETOSamantha FriJun 18, 2017 10:10 AM as necessaryProblem List As Of Date 06/18/2017 Noted Resolved Family history of breast cancer [Z80.3] INVALID FOR* Bilateral fibrocystic breast changes [N60.11, N*INVALID FOR* Atypical ductal hyperplasia of left breast [N60*INVALID FOR* Tobacco use disorder [F17.200] INVALID FOR* Other instructions from your clinician: General Breast Health Recommendations A healthy body helps promote healthy breasts. If you smoke, please consider a smoking cessation program. If you do not exercise, please consider starting an exercise program if you are able to, even if it is just walking in your neighborhood. Research shows that obesity, especially post-menopausal obesity, is a risk factor for breast cancer. Obtaining calcium in your diet or taking a calcium supplement that contains vitamin D is good for your bones. There is evolving evidence that Vitamin D supplementation may also help to decrease breast cancer risk. If you are post-menopausal and are bothered by hot flashes and still have a uterus, combined estrogen-progesterone preparations can increase your risk of breast cancer if taken for longer than five years. Alcohol is also an under-recognized risk factor. Every drink you have daily increases your breast cancer risk by 10%. Mammograms save lives. Have an annual mammogram annually beginning at age 40. Continue annual mammograms as long as you remain in good health. Breast self-exam, performed on day 7 of your menstrual cycle, can also be very helpful. Know your breasts and report changes to your health care provider or breast specialist. Clinical breast exams by your primary care provider or breast specialist are recommended annually every 1-3 years for women over the age of 20 and annually after the age of 40. Increased frequency of the clinical exam may be recommended for women at increased risk of breast cancer. Risk factors for breast cancer: Being a woman Family history of breast cancer Early menarche (onset of menses) prior to age 14 Nulliparity (never had children) First child after age 31 Late menopause (stopping of periods) after age 56 History of breast biopsy that showed atypical cells (ADH, ALH, LCIS, FEA) Presence of a genetic mutation (BRCA1, BRCA2, PTEN, P53, CDH1) History of chest wall irradiation (such as with Hodgkin's Lymphoma) prior to age 30 Personal history of breast cancer Post-menopausal Obesity Combined hormone therapy (estrogen and progesterone) for greater than 5 years Alcohol consumption of greater than 7 alcohol-containing drinks per week Breast density If you have a family history of breast or ovarian cancer, review this with your primary care provider or breast specialist to see if a referral for genetic counseling is recommended. 5-10% of breast cancers and up to 15% of ovarian cancers are linked to a genetic mutation. Signs of hereditary breast cancer syndrome include breast cancer that occurs under the age of 50, ovarian cancer at any age, male breast cancer, multiple family members affected with breast cancer, and a history of Ashkenazi Sabianism ancestry. Breast pain is very common and usually is not a sign of cancer, but should be evaluated by a breast specialist. For comfort, simply reducing caffeine (coffee, tea, chocolate, energy drinks, sodas) in your diet can provide relief. A properly fitted bra can also be helpful in reducing breast pain. If those two measures do not provide relief, taking Evening Lafitte Oil 1000mg capsules twice a day for a short period of time (three to four months) may be helpful. Many women wonder about their breast density. Dense breast tissue is, in and of itself, a relatively common condition which could hide abnormalities in a screening mammogram. This information is not provided to cause undue concern; rather, it is to raise your awareness and promote discussion with your health care provider regarding the presence of dense breast tissue in addition to other risk factors. If you would like to compliment one of our caregivers you encountered today, you may do so at [email or web address]. Thank you !Visit Notes:>> Carmine Flowers Ma FriJun 18, 2017 10:01 AM Status: SignedLast mammogram on: 10/09/2016Results: see reportIs the patient active on MyChart YesElectronically Signed By: Carmine Flowers Ma In Department: BREASTCENTERREVIEW OF PATIENT HISTORY: Obstetric History T0 L0 SAB0 TAB0 Ectopic0 Multiple0 Live Births0 Comment: Menarchy age 15AFB 19LMP 06/2013FAMILY HISTORYProblem Relation Age of Onset- Prostate Cancer Father- Cancer Maternal Grandfather lymphoma- Breast Cancer Maternal Grandmother- Developmental problem Mother- Developmental problem Father- Colon Cancer Maternal Aunt- Ampullary cancer [Other] [OTHER] Mother 86 Also mucinous tumor of pancreas- Cancer Mother See abovePAST MEDICAL HISTORYDiagnosis Date- Fibromyalgia- Rheumatoid arthritis(714.0) (HCC)PAST SURGICAL HISTORYProcedure Laterality Date- APPENDECTOMY HX 1999- OOPHORECTOMY, PART/TOTAL UNILAT/BILAT 1999- PAST SURGICAL HISTORY OF 04/05/2013 bilateral Needle localized excisional biopsy by Dr. Chris- PAST SURGICAL HISTORY OF 10/04/2014 Needle localization and excision of right breast calcifications by Social History Marital status: Spouse name: Years of education: Number of children:Social History Main Topics Smoking status: Current Every Day Smoker Packs/day: 1.00 Years: 36.00 Types: Cigarettes Start date: 1978 Smokeless status: Never Used Alcohol use: Yes Comment: HOLIDAYS Drug use: NoPrescriptions ordered this encounter Disp Refills Start End EXEMESTANE 25 MG TABLET 90 t* 3 06/18/2017 Route: ORAL Sig: Take 1 tablet by mouth once daily. after a meal.Follow-up and Disposition History RecordedEncounter Number: [id number] Status:Closed by ANNA MORENO on 06/18/17 Normal [facility] PROGRESSon 06-18-2017 Protein mass conc HNO ID: [id number] thor: Anna MorenoService: (none)Author Type: PhysicianType: Progress NotesFiled: 06/18/2017 10:39 AMNote Text:MEDICAL BREASTHISTORY of PRESENT ILLNESS:Jennie Aguilar is a 57 year old year old postmenopausal homemakerwho presents [facility] the [facility] today for six monthfollow up. The patient denies any breast masses, pain, skin changes, ornipple discharge. She is still smoking 1ppd. She has not met herdeductible for this year.In 03/09 she had a right core biopsy which showed fibrocystic change andfibrosis. 03/09 she had bilateral stereotactic biopsies that showedcolumnar cell change with mucin. 04/09 she had bilateral lumpectomieswhich showed columnar cell change with mucin bilaterally, but on the leftside, had focal ADH. On her last screening mammogram 06/09/14, she wasnoted to have new calcifications in the right upper outer breast. 07/08right stereotactic biopsy showed cysts with mucin and calcified debris.07/11/14 MRI showed asymmetric parenchymal enhancement right greater thanleft and 08/08 right MRI guided biopsy showed fibrocystic change. 10/08 shehad a resection in the right upper outer breast which showed anintraductal papilloma and fibrocystic change.She is on methotrexate and folic acid for her RA.Her vitamin D level was No results found for this basename: vitd25. Shetakes Vitamin D 2000U units .PERSONAL BREAST HISTORY:Past breast history (prior to this encounter) is as follows:Breast biopsy: Yes, as aboveBreast cysts: NoBreast surgery: Yes, as aboveBreast cancer: NoCANCER SURVEILLANCE:Mammograms: Yes / as aboveBreast MRI: 10/09/16 negativeColonoscopy: Yes / 2009 showing a polyp per pt reportBMD: Yes / 1999 per pt report - normal ; 06/11 osteopenia (per letter - noreport)RISK FACTORS FOR BREAST CANCER:Age at the onset of menses: 15 years of age. P: 3Age at the of first child: 19 years of age.She breast fed for 1 month totalAge at menopause: 53 years of age.Post-menopausal hormone therapy: NoShe has her uterus and one ovaryChest Irradiation: NoPostmenopausal obesity: NoMammographic density: There are scattered fibroglandular densitiesPersonal History of Atypical Breast Biopsy: Yes ADHAlcohol use: RarePAST MEDICAL HISTORY:PAST MEDICAL HISTORYDiagnosis Date- Fibromyalgia- Rheumatoid arthritis(714.0) (HCC)Patient specifically denies history of: DVT, PE, Migraine headaches,Abnormal uterine bleeding , Abnormal uterine biopsies and Osteoporosis.PAST SURGICAL HISTORY:PAST SURGICAL HISTORYProcedure Laterality Date- APPENDECTOMY HX 1999- OOPHORECTOMY, PART/TOTAL UNILAT/BILAT 1999- PAST SURGICAL HISTORY OF 04/05/2013 bilateral Needle localized excisional biopsy by Dr. Chirs- PAST SURGICAL HISTORY OF 10/04/2014 Needle localization and excision of right breast calcifications by festSOCIAL HISTORY:Social HistorySubstance Use Topics- Smoking status: Current Every Day Smoker Packs/day: 1.00 Years: 36.00 Types: Cigarettes Start date: 01/28/1978- Smokeless tobacco: Never Used- Alcohol use Yes Comment: HOLIDAYSCaffeine intake: 4 / dayExercise: NeverFAMILY HISTORY:Family history of breast cancer: MGM at 62Family history of ovarian cancer: NoneAshkenazi Ancestry:noHas Patient had Genetic Testing? NoHave any Family Members had Genetic Testing? NoOther Cancer: Mother had bile duct cancer and colon cancer- There is no family history of prostate, uterine, pancreatic, gastric,brain, renal cell or thyroid cancer.- There is no family history of melanoma, sarcoma or leukemia.Osteoporosis: MotherStroke: NoneBlood Clot: NoneHeart attack: NoneThyroid Nodule or Goiter: NoneAutism: NoneFAMILY HISTORYProblem Relation Age of Onset- Prostate Cancer Father- Cancer Maternal Grandfather lymphoma- Breast Cancer Maternal Grandmother- Developmental problem Mother- Developmental problem Father- Colon Cancer Maternal Aunt- Ampullary cancer [Other] [OTHER] Mother 86 Also mucinous tumor of pancreas- Cancer Mother See aboveMEDICATIONS:METHOTRE XATE SODIUM (METHOTREXATE, ANTI-RHEUMATIC, ORAL) Take by mouth.Patient takes 4 pills at 6 PM and then 3 pills at bedtime every /one day a week.LEUCOVORIN CALCIUM ORAL Take 15 mg by mouth. Patient takes one pill aweek.folic acid 1 mg tablet Take 1 mg by mouth once daily.Cholecalciferol, Vitamin D3, 1,000 unit cap Take 2,000 Units by mouth oncedaily.Evening Lafitte Oil 500 mg cap Take by mouth once daily.DULoxetine (CYMBALTA) 30 mg capsule Take 30 mg by mouth once daily.traZODone (DESYREL) 50 mg tablet Take 50 mg by mouth as needed. for sleeptraMADol (ULTRAM) 50 mg tablet Take 50 mg by mouth every 6 hours asneeded.ibuprofen (ADVIL) 200 mg tablet Take 600 mg by mouth every 8 hours asneeded.PREDNISONE 10 mg tablet Takes with flare up of painMELOXICAM 15 mg tablet 7.5 mg as needed.HYDROXYCHLOROQUINE 200 mg tablet 400 mg once daily.ALLERGIES: ALLERGIESNo Known AllergiesREVIEW OF SYSTEMS:The patient specifically denies unintentional weight loss, night sweats,changes in hearing, chest pain, shortness of breath, cough, heartburn,urinary incontinence, vaginal dryness, decreased libido, unusual bonypains or severe headaches. She does have some hot flashes and insomnia,but they are much improved.PHYSICAL EXAM:LMP 06/24/2013General: well-nourished, healthy, female, alert and oriented x 3, calmSkin: warm, dry, skin color, texture, turgor normalHead/Eyes: normocephalic, atraumatic and anictericBreasts and Regional Lymph Nodes: The Patient was examined in the uprightand supine positions. There is no concerning supraclavicular,infraclav icular or axillary lymphadenopathy. The breasts are symmetricalin appearance without visible skin or nipple changes. There are nodominant breast masses on the right or nipple discharge bilaterally. Onthe left side at 10pm 7.5cmfn there is a 3mm cystic density in the centerof her lumpectomy scar (oil cyst 4/16). The breasts were non-tender.There was mild to moderate fibrocystic change throughout.IMAGING:Deferr ed. There are scattered fibroglandular densities.IMPRESSION/PLAN :Jennie Aguilar is a 57 year old year old female with Fibrocystic Change andIncreased Risk for Breast Cancer due to ADH and Tobacco Use DisorderThere is no evidence of malignancy. The patient was reassured as to thebenign nature of her clinical findings. Her lifetime risk per the TCmodel is 26 %. She meets ACS criteria for screening breast MRI and will befollowed twice yearly with clinical exams as well as annual digitalmammography alternating with screening breast MRI. She does have a highdeductible health plan, and this will be deferred unless she meets herdeductible.Genetics referral made: no, NAChemoprevention discussion: She is not a candidate for SERMchemoprevention as long as she is smoking. She does have RA and some hotflashes. Chemoprevention was discussed at length with the patient. Twomedications are FDA approved for breast cancer risk reduction in thepost-menopausal woman, tamoxifen and raloxifene. Both are selectiveestrogen receptor modulators which stimulate the estrogen receptors insome tissues and block them in others. In the NSABP STAR Trial, they werecompared, both showing similar breast cancer risk reduction (40-50%).While tamoxifen was associated with a 1-3% risk of uterine cancer and a2.1% risk of blood clots, raloxifene was not associated with an increasedrisk of uterine cancer and was associated with a lower risk of bloodclots, at 1.6%. In larger meta-analyses studies, the risk of blood clotswas felt to be closer to 1%. She understands that common side effectsinclude hot flashes, night sweats and vaginal dryness or discharge.She also understands that another option for prevention in thepost-menopausal woman which is recommended by ASCO but not yet FDAapproved are aromatase inhibitors such as letrozole or aromasin, which mayreduce the risk of breast cancer by 55-65%, are not associated with anincreased risk of uterine cancer or blood clots, but can be associatedwith a 2-7% risk of bone density loss. Common side effects include hotflashes, night sweats, vaginal dryness and arthralgias.She was given an informational brochure and Exemestane will be escripted. A 3year course will be planned given her cardiac risk factor - smoking.The most important thing she could do for her overall health would be tostop smoking. This would also reduce her risk for osteoporosis. She isworking with her PCP and will try Chantix again.The patient is advised to exercise regularly, achieve/maintain ideal bodyweight, and to limit alcohol consumption to less than 7 drinks weekly forbreast cancer risk reduction and overall health.She will return for her mammogram in 10/11 and I will see her in 02/10 tosee how she is doing on the Exemestane (they winter in [place]). Gunnar ask her Bed Machine Operator for a vitamin D level as I am out of network. She will call me in the interim should she have any questions orconcerns.Anna Moreno, [facility]:Arabella Gibbons MD (DrRosie)[address] [place] [id number]: [phone]: [phone] [facility] Encounters Encounter Date Encounter Type Care Provider Facility Start: 08-31-2024 End: 08-31-[address] Elio Adams MD -Laboratory Work Phone: Start: 08-31-2024 End: 08-31-2024 ambulatory [facility] Facility:[facility] Start: 06-24-2024 End: 06-28-2024 Outreach Lab PILAR RODRIGUEZ DO [facility] Start: 06-24-2024 End: 06-28-2024 ambulatory PILAR RODRIGUEZ DO Facility:[facility] Start: 06-15-2024 End: 06-23-[address] Elio Adams MD -Laboratory Work Phone: Start: 06-15-2024 End: 06-23-2024 ambulatory [facility] Facility:[facility] Start: 12-08-2023 End: 12-08-2023 ambulatory [facility] Facility:[facility] Start: 10-24-2023 End: 10-24-2023 ambulatory [facility] Facility:[facility] Start: 09-10-2023 End: 09-24-2023 ambulatory [facility] Facility:[facility] Start: 06-10-2023 End: 06-10-2023 ambulatory [facility] Work Phone: Start: 06-10-2023 End: 06-10-2023 Patient encounter procedure [facility]-Laboratory Work Phone: Start: 12-10-2022 End: 12-10-2022 ambulatory [facility] Work Phone: Start: 12-10-2022 End: 12-10-2022 Patient encounter procedure [facility]Labor[facility] Work Phone: Start: 11-01-2022 End: 11-01-2022 ambulatory [facility] Work Phone: Start: 11-01-2022 End: 11-01-2022 Patient encounter procedure [facility] Work Phone: Start: 10-30-2022 End: 10-30-2022 ambulatory [facility] Work Phone: Start: 10-30-2022 End: 10-30-2022 Patient encounter procedure [facility] Work Phone: Start: 09-09-2022 End: 09-09-2022 ambulatory [facility] Work Phone: Start: 09-09-2022 End: 09-09-2022 Patient encounter procedure [facility]Labor[facility] Work Phone: Start: 06-14-2022 End: 06-14-2022 ambulatory [facility] Work Phone: Start: 06-14-2022 End: 06-14-2022 Patient encounter procedure [facility]Labor[facility] Start: 12-05-2021 End: 12-05-2021 ambulatory [facility] Work Phone: Start: 12-05-2021 End: 12-05-2021 Patient encounter procedure [facility] Start: 09-04-2021 End: 09-04-2021 Patient encounter procedure [facility] Start: 06-14-2021 End: 06-14-2021 Patient encounter procedure [facility] Start: 06-09-2018 End: 06-09-2018 Patient encounter procedure ELIO HAYWOOD [facility] Start: 02-03-2018 End: 02-03-2018 [facility] Start: 11-24-2017 End: 11-24-2017 Patient encounter procedure ELIO HAYWOOD [facility] Start: 10-10-2017 Patient encounter procedure ANNA MORENO [facility] Start: 08-29-2017 End: 08-29-2017 [facility] Start: 06-18-2017 End: 06-19-2017 Patient encounter procedure ANNA MORENO [facility] Procedures Date Procedure Procedure Detail Performing Clinician Start: 11-01-2022 Ultrasonography of breast Start: 10-30-2022 Screening mammography Payers Date Payer Category Payer Unknown [id number] 2023 Self-pay [id number] 2023 Unknown [id number] 1960 Unknown [id number] 2.16.84 [id number] 1960 Unknown [id number] 2.16.84 [id number] 1960 Unknown [id number] 2.16.84 [id number] 1960 Unknown [id number] 2.16.84 [id number] 1960 Unknown [id number] 2.16.8 [id number] Unknown [id number] Unknown [id number] Unknown [id number] Unknown [id number] 2.16.8 [id number] Unknown [id number] 2.16.8 [id number] Unknown [id number] 2.16.8 [id number] Unknown [id number] 2.16.8 [id number] Unknown [id number] 2.16.8 [id number] Unknown [id number] 2.16.8 [id number] Social History Date Type Detail Facility Tobacco smoking stat [facility] Unknown if ever smoked [facility] Work Phone: Start: 1960 Sex Assigned At Female [facility] Tobacco smoking status [facility] Start: 06-24-2024 Sex Female (finding) [facility] Tobacco smoking stat [facility] Unknown if ever smoked [facility] Work Phone: Clinical Note 06-28-2024 Note Date & Type Note Facility 06-28-2024 Note Event Display: SP Cl in Info R/O ADENOMA; SCREENING Procedure: COLONOSCOPY MD SHARAD PATIÑO:VERIFY; Authored Date: [facility] Evaluation + Plan note Note Date & Type Note Facility Evaluation + Plan note No data available for this section [facility] Evaluation note Note Date & Type Note Facility Evaluation note No assessment information availa [facility] Work Phone: Hospital Discharge instructions Note Date & Type Note Facility Hospital Discharge instructions No data available for this section [facility] Progress note Note Date & Type Note Facility Progress note No data available for this section [facility] Reason for referral (narrative) Note Date & Type Note Facility Reason for referral (narrative) No reason for referral information available [facility] Work Phone: Summary Purpose Family History No Family History Records FoundNo Family History Records FoundNo Family History Records Found No data available for this section No Family History Records Found Advance Directives No Advanced Directives Records FoundNo Advanced Directives Records FoundNo Advanced Directives Records FoundNo Advanced Directives Records Found Chief Complaint and Reason for Visit Chief Complaint STANDING ORDER Chief Complaint SCREENIING ABN MAMM Chief Complaint SCREENIING ABN MAMM S/O EVERY 3 MONTHS Chief Complaint Admit Date S/O EVERY 3 MONTHS June 15, 2024 10: 19am s/o EVERY 3 MONTHS August 31, 2024 11:03 am Additional Source Comments INFORMATION SOURCE (unrecogn ized section and content) DATE CREATED AUTHOR 02/13/2018 [facility] DATE CREATED AUTHOR AUTHOR'S ORGANIZ ATION 06/10/2018 [facility] DATE CREATED AUTHOR AUTHOR'S ORGANIZ ATION 06/29/2024 [facility] DATE CREATED AUTHOR AUTHOR'S ORGANIZ ATION 09/04/2024 [facility] Goals (unrecognized section and content) Goals may be documented in a n alternate sectionGoals may be documented in an alternate sectionGoals may be documented in an alternate sectionGoals may be documented in an alternate sectionGoals may be documented in an alternate sectionGoals may be documented in an alternate sectionGoals may be documented in an alternate sectionGoals may be documented in an alternate sectionGoals may be documented in an alternate section No data available for this sectionGoals may be documented in an alternate section Care Teams (unrecognized sec tion and content) Team Status: Active Member Role Status Dates CUONG Matthew Family Provider Active No Primary Care Physician Primary Care Provider Active Team Status: Inactive Member Role Status Dates No Primary Care Physician Primary Care Provider Active Dr. Elio Adams MD Attending Provider, Referring Provider Active Team Status: Active Member Role Status Dates CUONG Matthew Family Provider Active Antonia Perry DO Primary Care Provider Active Team Status: Inactive Member Role Status Dates Antonia Perry DO Primary Care Provider Active Dr. Elio Adams MD Attending Provider, Referring Provider Active Team Status: Inactive Member Role Status Dates Antonia Perry DO Primary Care Provi wilbur, Attending Provider, Referring Provider Active Team Status: Active Member Role Status Dates Antonia Perry DO Primary Care Provi wilbur, Attending Provider, Referring Provider Active Team Status: Active Member Role/Relationship Status Dates Tamika Holliday MD Primary Care Provider Active Team Status: Inactive Member Role/Relationship Status Dates Dr. Elio Adams MD Attending Provider Active Start: June 15, 2024 End: June 23, 2024 Dr. Elio Adams MD Referring Provider Active Start: June 15, 2024 End: June 23, 2024 Tamika Holliday MD Primary Care Provider Active St art: June 15, 2024 End: June 23, 2024 Team Status: Inactive Member Role/Relationship Status Dates Tamika Holliday MD Primary Care Provider Active St art: August 31, 2024 End: August 31, 2024 Dr. Elio Adams MD Attending Provider Active Start: August 31, 2024 End: August 31, 2024 Dr. Elio Adams MD Referring Provider Active Start: August 31, 2024 End: August 31, 2024 FOR RECORDS PERTAINING TO PATIENTS WHO ARE OR HAVE BEEN ENROLLED IN A CHEMICAL DEPENDENCY/SUBSTANCEABUSE PROGRAM, SOME INFORMATION MAY BE OMITTED. This clinical summary was aggregated from multiple sources. Caution should be exercised in using it in the provision of clinical care. This summary normalizes information from multiple sources, and as a consequence, information in this document may materially change the coding, format and clinical context of patient data. In addition, data may be omitted in some cases. CLINICAL DECISIONS SHOULD BE BASED ON THE PRIMARY CLINICAL RECORDS. [facility]. provides no warranty or guarantee of the accuracy or completeness of information in this document.
== END | disposition home or self-care (01) ==
LOC: OPBI 09:59
PROVIDERS: PCP Family Medicine; Referring Provider Family Medicine; Visit Provider Family Medicine
DX: Z12.31 Encounter for screening mammogram for malignant neoplasm of breast (principal)
CPT/HCPCS: 77063; 77067

== ENCOUNTER → 2024-10-27 | Outpatient (CLI) | payer OTHER, SELFPAY ==
[2024-10-27 18:26] LABS: Anion Gap 13 (5-15); BUN 13 mg/dL (4-19); BUN/Creat Ratio 13.1 RATIO (10-20); Calcium,Total 9.7 mg/dL (7.6-11.0); Carbon Dioxide 23.8 mmol/L (21.0-32.0); Chloride 104 mmol/L (98-108); Cholesterol 169 mg/dL (<=200); Glucose 85 mg/dL (70-99); Low Density Lipoprotein Calc. 80 mg/dL; Potassium 4.8 mmol/L (3.3-5.1); Triglycerides 116 mg/dL; Very Low Density Lipoprotein 23 mg/dL (5-40); cholesterol:hdl ratio screen 2.56
[2024-10-31 08:39] LABS: HPV APTIMA, High Risk Negative (Negative)
== END | disposition home or self-care (01) ==
LOC: MFPLAB 14:45
PROVIDERS: Nurse Practitioner Family; PCP Family Medicine; Visit Provider Family Medicine
DX: Z12.4 Encounter for screening for malignant neoplasm of cervix (principal); Z13.220 Encounter for screening for lipoid disorders; Z13.1 Encounter for screening for diabetes mellitus
CPT/HCPCS: 36415; 80048; 80061; 87624; 88175; G0145

== ENCOUNTER → 2024-11-11 | Outpatient (CLI) | payer OTHER, SELFPAY ==
--- NOTE | 2024-11-11 14:35 | CT_ITS ---
PROCEDURE: LOW DOSE CT LUNG SCREENING 11/11/2024 REASON FOR EXAM: SCREEN 1 pack per day smoker times 40+ years, current smoker TECHNIQUE: Procedure Code: CTLUNGSCREEN Modality: CT Procedure: LOW DOSE CT LUNG SCREENING Coronal and Sagittal reconstruction series were provided. One or more dose reduction techniques were used (e.g., Automated exposure control, adjustment of the mA and/or kV according to patient size, use of iterative reconstruction technique). REFERENCE LINK: [facility] Lung-RADS RADIATION DOSE SUMMARY: CTDlvol: 2.01 mGy DLP: 56.40 mGycm COMPARISON: None FINDINGS: Lung windows show underlying emphysema. There is a noncalcified 4 mm nodule in the right upper lobe on axial image 39. There are ground-glass opacifications scattered throughout both lung [place] consistent with small airways inflammation/reactive alveolitis. No organized infiltrate or effusion. No other suspicious noncalcified mass or nodule. Limited soft tissue windows show a normal-appearing thyroid gland. No suspicious axillary, mediastinal or perihilar adenopathy. Peripheral calcifications in the thoracic aorta without aneurysm. Calcified coronary vessels. Bony structures show degenerative change. Limited cuts through the upper abdomen do not show a suspicious abnormalities CT/Low Dose CT Lung Screening IMPRESSION: Coronary artery calcification (CAC) is is present Lung-RADS Category: 3 PROBABLY BENIGN (BASED ON IMAGING FEATURES OR BEHAVIOR). RECOMMEND 6 MONTH LDCT. Other Significant Findings: Reading Location: [id number]
--- NOTE | 2024-11-11 14:49 | BD_ITS ---
PROCEDURE: DEXA BONE DENSITY STUDY 11/11/2024 REASON FOR EXAM: F, age 64 y/o . Postmenopausal. TECHNIQUE: Procedure Code: BDDBD Modality: DX Procedure: DEXA BONE DENSITY STUDY COMPARISON: None FINDINGS: BMD and T-SCORES Lumbar spine: 0.791 g/cm2, T-score -2.3 Levels: L1 through L4 Left femoral neck: 0.624 g/cm2, T-score -2.0 Femoral neck comparison data not recommended for monitoring change. Left total hip: 0.725 g/cm2, T-score -1.8 Right femoral neck: 0.653 g/cm2, T-score -1.8 Femoral neck comparison data not recommended for monitoring change. Right total hip: 0.734 g/cm2, T-score -1.7 The World Health Organization has defined the following categories based on bone density: Normal bone density: T-score equal to or greater than -1.0 Osteopenia: T-score between -1.0 and -2.5 Osteoporosis: T-score equal to or less than -2.5 FRAX (or Comparable) Fracture Risk Assessment: 10 Year Probability of Fracture: Major Osteoporotic Fracture: 20% Hip Fracture: 3.6% (Note: FRAX is not to be reported in setting of normal range bone density, osteoporosis on DEXA, known history of osteoporosis, prior osteoporotic hip or vertebral fracture, or for any patient undergoing pharmacological treatment for bone loss.) The National Osteoporosis Foundation (NOF) recommends pharmacological treatment for patients with a FRAX 10-year risk of 3% or higher for a hip fracture, or 20% or higher for a major osteoporotic fracture, to prevent osteoporosis and reduce fracture risk. The patient does meet the pharmacological treatment recommendations for prevention of osteoporosis. BD/Dexa Bone Density Study IMPRESSION: OSTEOPENIA. Recommend follow-up as clinically warranted. Reading Location: [place] [id number]
== END | disposition home or self-care (01) ==
LOC: CT 14:33
PROVIDERS: PCP Family Medicine; Referring Provider Nurse Practitioner Family; Visit Provider Nurse Practitioner Family
DX: Z12.2 Encounter for screening for malignant neoplasm of respiratory organs (principal); Z78.0 Asymptomatic menopausal state; F17.210 Nicotine dependence, cigarettes, uncomplicated
CPT/HCPCS: 71271; 77080

== ENCOUNTER → 2024-11-30 | Outpatient (CLI) | payer OTHER, SELFPAY ==
[2024-11-30 11:16] LABS: Hematocrit 42.4 % (37-47); Hemoglobin 14.7 g/dL (12.0-15.0); Immature Granulocytes Count 0.020 X10^3/uL (0.0-0.0); Mean Corp Hgb Conc 34.7 g/dL (32-36); Mean Corpuscular Volume 94.4 fL (81-99); Mean Platelet Vol. 10.2 fl (6.2-12.0); NRBC Flagged by Analyzer 0 % (0-5); Platelet Count 266 K/mm3 (150-450); RBC Distribution Width CV 12.9 % (11.6-14.6); RBC Distribution Width SD 44.5 fl (35.1-43.9); Red Blood Count 4.49 M/mm3 (4.2-5.4); White Blood Count 6.9 K/mm3 (4.4-11.0)
[2024-11-30 12:05] LABS: AST(SGOT) 17 U/L (<=31); Alanine Aminotransfer ALT/SGPT 11 U/L (<=34); Albumin, Serum 4.6 g/dL (3.4-4.8); Alkaline Phosphatase 56 U/L (35-104); Anion Gap 12 (5-15); BUN 11 mg/dL (4-19); BUN/Creat Ratio 12.2 RATIO (10-20); Calcium,Total 9.1 mg/dL (7.6-11.0); Carbon Dioxide 22.6 mmol/L (21.0-32.0); Chloride 104 mmol/L (98-108); Globulin 2.0 g/dL (2.2-4.2); Glucose 105 mg/dL (70-99); Potassium 4.1 mmol/L (3.3-5.1)
== END | disposition home or self-care (01) ==
LOC: LAB 10:58
PROVIDERS: PCP Family Medicine; Referring Provider Internal Medicine Rheumatology; Visit Provider Internal Medicine Rheumatology
DX: M06.041 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 rheumatoid factor, right hand (principal); M79.7 Fibromyalgia; M18.11 Unilateral primary osteoarthritis of first carpometacarpal joint, right hand; Z79.899 Other long term (current) drug therapy
CPT/HCPCS: 36415; 80053; 85025